=== PATIENT | female | born 1965 | race Caucasian/White ===

== ENCOUNTER 2018-10-03 17:16 | Inpatient (IN) | payer MEDICAID ==
[~2018-10-03] VITALS: Ht 162.6 cm; Wt 65.7 kg
[~2018-10-03 17:16] MED LIST: NAPR-688 PO; RANI150T5 PO
[2018-10-03 17:20] VITALS: Ht 162.6 cm; Wt 65.7 kg
--- NOTE | 2018-10-03 17:52 | ERD ---
ER Documentation Chief Complaint Chief Complaint JAW STIFFNESS; HEADACHE;MUSCLE STIFFNESS HPI The patient is a 53-year-old female, presenting to the ER because of inability to open her mouth, jaw lock for a day and a half. She stepped on a leela nail in the back ER about 2 weeks ago on the plantar aspect of the left great toe. She removed the nail but did not seek medical attention. She complains of bilateral lower extremity stiffness, painful joints, painful movement of her extremities, abdominal stiffness and spasm and contraction and dysphagia last week. He symptoms are getting worse. She does not smoke nor drink, her last tetanus vaccination was about 25 years ago past medical history: Kidney stone, gastritis, migraine past surgical history: Nasal surgery ROS All systems reviewed and are negative except as per history of present illness. Medications Home Meds Reported Medications Calcium Carb/Mag/Vitamin D3 (Coral Calcium 1,500 mg Cap) 1 Each Capsule, 1 EACH PO DAILY, CAP 10/03/18 Discontinued Reported Medications Cholecalciferol* (Vitamin D3*) 1,000 Unit Tablet, 1000 UNIT PO DAILY, TAB 10/03/18 Turmeric Root Extract (Turmeric) 500 Mg Capsule, 500 MG PO, CAP 10/03/18 Naproxen* (Naproxen*) 500 Mg Tablet, 500 MG PO BID PRN for HEADACHE, TAB 03/31/14 Ranitidine Hcl* (Ranitidine Hcl*) 150 Mg Tablet, 150 MG PO DAILY, TAB 03/31/14 Allergies Allergies: Coded Allergies: Penicillins (Unverified Allergy, Severe, RASH, 10/08/18) Uncoded Allergies: DYE (Allergy, Severe, STOP BREATHING, 09/04/10) PMhx/Soc History of Surgery: No Anesthesia Reaction: No Hx Neurological Disorder: No Hx Respiratory Disorders: No Hx Cardiac Disorders: No Hx Psychiatric Problems: No Hx Miscellaneous Medical Probl: Yes (KIDNEY STONES ,GASTRITIS , MIGRAINE ) Hx Alcohol Use: No Hx Substance Use: No Hx Tobacco Use: No Physical Exam Vitals Physical Exam Const: No acute distress. Head: Atraumatic. Eyes: Normal Conjunctiva. ENT: Normal External Ears, Nose and Mouth.Trismus Neck: Full range of motion. No meningismus. Resp: Clear to auscultation bilaterally. Cardio: Regular rate and rhythm. Abd: Soft, non distended, normal bowel sounds, vague and diffuse abdominal tenderness, no rigidity/rebound/CVA tenderness Skin: No petechiae or rashes. Back: No midline or flank tenderness. Ext: No cyanosis, or edema. No puncture wound at the plantar aspect of the left great toe Neur: Awake and alert. No focal deficit Psych: Normal Mood and Affect. Result Diagram: 10/05/18 0453 10/09/18 0547 Results 24 hrs Laboratory Tests Test 10/03/18 18:29 10/03/18 18:32 10/03/18 18:35 10/03/18 19:00 POC Venous Lactate 0.7 mmol/L Urine Color COLORLESS Urine Clarity CLEAR Urine pH 7.0 Urine Specific 1.006 [place] Urine Ketones NEGATIVE mg/dL Urine Nitrite NEGATIVE mg/dL Urine Bilirubin NEGATIVE mg/dL Urine Urobilinogen NEGATIVE mg/dL Urine Leukocyte NEGATIVE Rocio/ul Esterase Urine Microscopic 1 /HPF RBC Urine Microscopic 1 /HPF WBC Urine Hemoglobin 1+ mg/dL Urine Glucose NEGATIVE mg/dL Urine Total NEGATIVE mg/dl Protein White Blood Count 5.7 10^3/ul Red Blood Count 3.97 10^6/ul Hemoglobin 13.6 g/dl Hematocrit 39.6 % Mean Corpuscular 99.7 fl Volume Mean Corpuscular 34.3 pg Hemoglobin Mean Corpuscular 34.3 g/dl Hemoglobin Concent Red Cell 11.7 % Distribution Width Platelet Count 224 10^3/UL Mean Platelet 10.2 fl Volume Immature 0.400 % Granulocytes % Neutrophils % 57.6 % Lymphocytes % 28.5 % Monocytes % 7.7 % Eosinophils % 3.7 % Basophils % 2.1 % Nucleated Red 0.0 /100WBC Blood Cells % Immature 0.020 10^3/ul Granulocytes # Neutrophils # 3.3 10^3/ul Lymphocytes # 1.6 10^3/ul Monocytes # 0.4 10^3/ul Eosinophils # 0.2 10^3/ul Basophils # 0.1 10^3/ul Nucleated Red 0.0 10^3/ul Blood Cells # Prothrombin Time 12.9 Sec Prothrombin Time 1.0 Ratio INR International 0.96 Normalized Ratio Activated 25.[address] Time Sodium Level 140 mmol/L Potassium Level 4.2 mmol/L Chloride Level 107 mmol/L Carbon Dioxide 24 mmol/L Level Anion Gap 9 Blood Urea 15 mg/dl Nitrogen Creatinine 0.81 mg/dl Est Glomerular > 60 mL/min Filtrat Rate mL/min Glucose Level 93 mg/dl Calcium Level 9.8 mg/dl Magnesium Level 2.0 mg/dl Total Bilirubin 0.5 mg/dl Direct Bilirubin 0.00 mg/dl Indirect Bilirubin 0.5 mg/dl Aspartate Amino 33 IU/L Transf (AST/SGOT) Alanine 27 IU/L Aminotransferase ( ALT/SGPT) Alkaline 86 IU/L Phosphatase Troponin I < 0.012 ng/ml Total Protein 7.5 g/dl Albumin 4.3 g/dl Globulin 3.20 g/dl Albumin/Globulin 1.34 Ratio Bedside Urine pH 6.5 (LAB) Bedside Urine Negative Protein (LAB) Bedside Urine Negative Glucose (UA) Bedside Urine Negative Ketones (LAB) Bedside Urine Trace-intact Blood Bedside Urine Negative Nitrite (LAB) Bedside Urine Negative Leukocyte Esterase (L Current Medications Medications Dose Sig/Kassandra Start Time Status Last (Trade) Ordered Route PRN Stop Time Admin Dose Reason Admin Morphine 2 mg ONCE STAT 10/03/18 DC 10/03/18 Sulfate IV 18:43 10/03/18 19:01 (morphine) 18:44 Ondansetron 4 mg ONCE STAT 10/03/18 DC 10/03/18 HCl (Zofran IV 18:43 10/03/18 19:01 Inj) 18:44 Tetanus 500 units ONCE ONCE 10/03/18 DC 10/03/18 Immune IM 19:00 10/03/18 19:15 Globulin 19:01 (Hypertet S/D) Diphtheria/ 0.5 ml ONCE ONCE 10/03/18 DC 10/03/18 Tetanus/Acell IM* 19:00 10/03/18 19:16 Pertussis 19:01 (Adacel) 100 ml @ ONCE ONCE 10/03/18 DC 10/03/18 Metronidazole 100 mls/hr IVPB 19:30 10/03/18 19:16 20:29 Diazepam 2 mg ONCE ONCE 10/03/18 DC 10/03/18 (Valium) IV 20:30 10/03/18 20:38 20:31 Procedures/MDM [address] [address] Radiology Main Line: [phone] DIAGNOSTIC IMAGING REPORT Patient: DANETTE WIKLINS : 1965 Age: 53 Sex: F MR #: [id number] DOS: 10/03/18 1804 Ordering MD: HOLLAND MAGUIRE MD Location: E/R Room/Bed: PROCEDURE: XR Left foot. CLINICAL INDICATION: Left foot pain TECHNIQUE: Three views of the left foot were obtained. COMPARISON: No prior studies are available for comparison. FINDINGS: There is no acute fracture or dislocation. Alignment is normal. Joint spaces are preserved. There is a bipartite medial hallux sesamoid. There is mild forefoot soft tissue swelling. IMPRESSION: 1. No radiographic evidence of acute osseous abnormality. 2. Bipartite medial hallux sesamoid with mild adjacent soft tissue swelling. RPTAT: UU .José Monreal MD, Date Time Electronically viewed and signed by .José Monreal MD, on 10/03/2018 19:30 .K/ CC: HOLLAND MAGUIRE MD [id number] [place] [id number] Radiology Main Line: [phone] DIAGNOSTIC IMAGING REPORT Patient: DANETTE WILKINS : 1965 Age: 53 Sex: F MR #: [id number] DOS: 10/03/18 1803 Ordering MD: HOLLAND MAGUIRE MD Location: E/R Room/Bed: PROCEDURE: XR Chest. CLINICAL INDICATION: Chest pain TECHNIQUE: Single frontal view of the chest was obtained COMPARISON: None FINDINGS: The heart and mediastinum are within normal limits. The lungs are clear. There is no pleural effusion or pneumothorax. The bones and soft tissue show no acute change. IMPRESSION: No definite abnormalities are identified. RPTAT:AAJJ Physician Fernando Date Time Electronically viewed and signed by Physician Fernando on 10/03/2018 18:59 MC/ CC: HOLLAND MAGUIRE MD [id number] EKG: Read by emergency physician Rate/Rhythm: Normal Sinus Rhythm 61 beats/min QRS, ST, T-waves: No ST elevation, no T inversion Impression: Normal EKG Consultation: I discussed the patient with poison control at 6:20p, who recommended human tetanus immunoglobulin 500 units intramuscularly, tetanus vaccination Consultation:: I also discussed the patient with the on-call ENT physician Dr. Cerrato, who was made aware of the patient condition and the treatment. He accepted the consult MEDICAL MAKING DECISION: The patient is a 53-year-old female, presenting with clinical tetanus. She was treated with tetanus immunoglobulin, tetanus vaccination at different site from immunoglobulin, Flagyl IV for probable tetanus, morphine 2 mg IV for pain, Zofran 4 mg IV for nausea, Valium 2 mg IV for muscle spasm. I have consider spinal tap, but the patient does not presented with clinical meningitis with unremarkable labs and vital sign. my suspicion for meningitis is very low The differential diagnoses considered include but are not limited to tenderness, cellulitis, abscess, viral meningitis, bacterial meningitis Critical Care: Time: 35 minutes excluding all billable procedures. Treatments/Evaluations: Close monitoring and treatment of unstable vital signs, cardiorespiratory, and neurologic status, while maintaining tight balance of fluid, respiratory, and cardiac interventions. Departure Diagnosis: Primary Impression: Tetanus Condition: Critical Comments The patient's blood pressure was elevated (>120/80) but appears stable without evidence of hypertension emergency or urgency. The patient was counseled about the risks of hypertension and urged to pursue outpatient monitoring and therapy within a week with their primary care physician. I discussed the findings with the patient. I discussed the patient with Dr Wagner at 8:30p , who was made aware of the lab, the treatment, the patient condition. The patient is admitted to ICU Disclaimer: Inadvertent spelling and grammatical errors are likely due to EHR/dictation software use and do not reflect on the overall quality of patient care. Also, please note that the electronic time recorded on this note does not necessarily reflect the actual time of the patient encounter. HOLLAND MAGUIRE MD October 03, 2018 17:52
[2018-10-03] MEDS ORDERED: ONDANSETRON 4 MG INJ IV STA (18:43)
[2018-10-03] MEDS ORDERED: morphine 2 MG INJ IV STA (18:43)
[2018-10-03] MEDS ORDERED: TETANUS IMMUNE GLOB 250 UNIT SYG IM ONE (19:00)
[2018-10-03] MEDS ORDERED: DIPHTH/TET/ACEL PERTUSS (ADULT) 0.5 ML VIAL IM* ONE (19:00)
[2018-10-03] MEDS ORDERED: metroNIDAZOLE 500 MG/NS (PMX) 100 ML IVPB ONE (19:30)
[2018-10-03] MEDS ORDERED: DIAZEPAM 5 MG/ML SYG IV ONE (20:30)
[2018-10-03] MEDS ORDERED: CA C1CAP PO (21:52)
[2018-10-03] MEDS ORDERED: TURM500C9 PO (21:52)
[2018-10-03] MEDS ORDERED: CHOL100062 PO (21:52)
[2018-10-03] MEDS ORDERED: ACETAMINOPHEN 650 MG SUPP PR PRN (22:00)
[2018-10-03] MEDS ORDERED: ALBUTEROL/IPRATROPIUM (NEB) 3 ML AMP NEB PRN (22:00)
[2018-10-03 22:26] VITALS: BP 112/63; RESP 12
[2018-10-03 22:31] VITALS: PULSE 66
[2018-10-03] MEDS ORDERED: KETOROLAC 30 MG INJ IV STA (22:41)
[2018-10-03] MEDS: DEXTROSE 5%-0.45% NACL 1,000 ML IV SCH (22:52)
[2018-10-03 22:58] VITALS: PULSE 45
[2018-10-03 23:00] VITALS: BP 106/61
[2018-10-03] MEDS: PANTOPRAZOLE 40 MG INJ IV SCH (23:34)
[2018-10-03] MEDS: morphine 4 MG/ML VIAL IV PRN (23:34)
--- NOTE | 2018-10-03 23:53 | HP ---
Date/Time of Note Date/Time of Note DATE: 10/03/18 TIME: 23:53 Assessment/Plan VTE Prophylaxis Pharmacological prophylaxis: heparin Lines/Catheters IV Catheter Type (from Nrs): Peripheral IV Assessment/Plan Assessment/Plan 53-year-old female with no significant past medical history presented with generalized muscle spasm including lockjaw, most likely secondary to tetanus, as a result of stepping on rusted nail. PLAN -Patient is status post tetanus immunoglobulin -Continue ICU monitoring -Will be placed on Flagyl -Benzos for muscle relaxant -ID consult -ENT was consulted in the ER because of locked jaw. Patient however able to talk, but not able to open her mouth completely. -Monitor for any sign of respiratory distress Result Diagram: 10/03/18 1835 10/03/18 183 Results 24hrs Laboratory Tests Test 10/03/18 18:29 10/03/18 18:32 10/03/18 18:35 10/03/18 19:00 POC Venous Lactate 0.7 Urine Color COLORLESS Urine Clarity CLEAR Urine pH 7.0 Urine Specific 1.006 [place] Urine Ketones NEGATIVE Urine Nitrite NEGATIVE Urine Bilirubin NEGATIVE Urine Urobilinogen NEGATIVE Urine Leukocyte NEGATIVE Esterase Urine Microscopic RBC 1 Urine Microscopic WBC 1 Urine Hemoglobin 1+ H Urine Glucose NEGATIVE Urine Total Protein NEGATIVE White Blood Count 5.7 # Red Blood Count 3.97 L Hemoglobin 13.6 Hematocrit 39.6 Mean Corpuscular 99.7 Volume Mean Corpuscular 34.3 H Hemoglobin Mean Corpuscular 34.3 Hemoglobin Concent Red Cell Distribution 11.7 Width Platelet Count 224 Mean Platelet Volume 10.2 # Immature Granulocytes 0.400 % Neutrophils % 57.6 Lymphocytes % 28.5 Monocytes % 7.7 Eosinophils % 3.7 Basophils % 2.1 H Nucleated Red Blood 0.0 Cells % Immature Granulocytes 0.020 # Neutrophils # 3.3 Lymphocytes # 1.6 Monocytes # 0.4 Eosinophils # 0.2 Basophils # 0.1 Nucleated Red Blood 0.0 Cells # Prothrombin Time 12.9 Prothrombin Time 1.0 Ratio INR International 0.96 Normalized Ratio Activated 25.8 Partial Thromboplast Time Sodium Level 140 Potassium Level 4.2 Chloride Level 107 Carbon Dioxide Level 24 Anion Gap 9 Blood Urea Nitrogen 15 Creatinine 0.81 Est Glomerular > 60 Filtrat Rate mL/min Glucose Level 93 Calcium Level 9.8 Magnesium Level 2.0 Total Bilirubin 0.5 Direct Bilirubin 0.00 Indirect Bilirubin 0.5 Aspartate Amino 33 Transf (AST/SGOT) Alanine 27 Aminotransferase (ALT /SGPT) Alkaline Phosphatase 86 Troponin I < 0.012 Total Protein 7.5 Albumin 4.3 Globulin 3.20 Albumin/Globulin 1.34 Ratio Bedside Urine pH 6.5 (LAB) Bedside Urine Protein Negative (LAB) Bedside Urine Glucose Negative (UA) Bedside Urine Ketones Negative (LAB) Bedside Urine Blood Trace-intact H Bedside Urine Nitrite Negative (LAB) Bedside Urine Negative Leukocyte Esterase (L Test 10/03/18 22:43 Lactic Acid Level 0.9 HPI/ROS Admit Date/Time Admit Date/Time October 03, 2018 at 20:47 Hx of Present Illness This is a 53-year-old female with no significant past medical history who presented to ER complaining of muscle spasm and difficulty opening her mouth. About 2 weeks ago, she stepped on a nail while gardening, injuring her right foot(reportedly between the great toe and the second toe). Since then generalized muscle spasm has been progressively getting worse to the point where she can barely open her mouth. Interestingly, there is no sign of punctured wound on her foot. Patient reported being vascular vaccinated with tetanus 25 years ago. She denied having had tetanus booster. When presented to ER, initial vitals were stable. Heart rate, at times however has been noted to be in the 40s. According to the patient and family at the bedside, patient has been athletic. In the ER she received tetanus immunoglobulin and a dose of Flagyl. Currently she is admitted to ICU and is s till complaining of muscle spasm. She is able to talk but unable to open her mouth completely. Currently she denies any difficulty breathing. At home, she has been eating liquids. She did complain of having had a difficulty swallowing. PMH/Family/Social Past Medical History Past Surgical Hx: other (HPI) Family History Significant Family History: no pertinent family hx Social History Alcohol Use: none Smoking Status: Never smoker Drug Use: none Exam Constitutional: alert, oriented, well developed Head: normocephalic, atraumatic Eyes: EOMI, PERRL Respiratory: clear to auscultation, normal air movement Cardiovascular: regular rate and rhythm, nl pulses Gastrointestinal: soft, other (Right lower quadrant tenderness elicited on palpation. Patient also with right flank pain) Extremities: normal pulses Medications Current Medications Dextrose/Sodium Chloride 1,000 ml @ 100 mls/hr Q10H IV Last administered on 10/03/18at 22:52; Admin Dose 100 MLS/HR; Start 10/03/18 at 21:32 Ondansetron HCl (Zofran Inj) 4 mg Q6H PRN IV NAUSEA AND/OR VOMITING; Start 10/03/18 at 22:00 Albuterol/ Ipratropium (Duoneb) 3 ml Q2H RESP THERAPY PRN NEB SHORTNESS OF BREATH; Start 10/03/18 at 22:00 Acetaminophen (Tylenol Supp) 650 mg Q4H PRN [place] PAIN LEVEL 1-3 OR FEVER; Start 10/03/18 at 22:00 Morphine Sulfate (morphine) 3 mg Q4H PRN IV SEVERE PAIN LEVEL 7-10 Last administered on 10/03/18at 23:34; Admin Dose 3 MG; Start 10/03/18 at 23:00 Pantoprazole (Protonix Iv) 40 mg DAILY@06 IV Last administered on 10/03/18at 23:34; Admin Dose 40 MG; Start 10/03/18 at 23:30 Cyclobenzaprine HCl (Flexeril) 10 mg TID PRN PO MUSCLE SPASMS; Start 10/03/18 at 23:30 Coded Allergies: Penicillins (Unverified Allergy, Severe, RASH, 10/03/18) Uncoded Allergies: DYE (Allergy, Severe, STOP BREATHING, 09/04/10) Social History Smoking Status: Never smoker Exam/Review of Systems Vital Signs Vitals Vital Signs Date Temp Pulse Resp B/P (MAP) Pulse Ox O2 O2 Flow FiO2 Time Delivery Rate 10/03/18 45 22:58 10/03/18 97.9 16 103/66 99 Room Air 22:02 (78) ASHLEY CALL MD October 03, 2018 23:53
[2018-10-04] VITALS (24 sets, daily range): BP systolic 77–113; BP diastolic 40–98; PULSE 45–66; RESP 12–21
[2018-10-04] MEDS: CYCLOBENZAPRINE 10 MG TAB PO PRN ×3 (01:12→18:24)
[2018-10-04] MEDS ORDERED: LORAZEPAM 2 MG INJ IV ONE (01:30)
[2018-10-04] MEDS: morphine 4 MG/ML VIAL IV PRN ×3 (05:08→19:32)
[2018-10-04] MEDS: metroNIDAZOLE 500 MG/NS (PMX) 100 ML IVPB SCH ×4 (05:42→23:44)
[2018-10-04] MEDS: PANTOPRAZOLE 40 MG INJ IV SCH (05:42)
[2018-10-04] MEDS ORDERED: PANTOPRAZOLE 40 MG INJ IV SCH (06:00)
[2018-10-04] MEDS ORDERED: DIAZEPAM 5 MG/ML SYG IV PRN ×2 (06:00→23:00)
[2018-10-04] MEDS: DEXTROSE 5%-0.45% NACL 1,000 ML IV SCH ×2 (08:53→17:32)
--- NOTE | 2018-10-04 13:25 | CONS ---
DATE OF ADMISSION: 10/03/2018 DATE OF CONSULTATION: 10/04/2018 TYPE OF CONSULTATION: Infectious disease. REASON FOR CONSULTATION: Antibiotic management. HISTORY OF PRESENT ILLNESS: Diana Perez is a 53-year-old female who was sent in by her PC P for possible tetanus. Patient has no past medical significant history except for history of kidney stones, gastritis and migraines. She presents with generalized muscle spasm including most li kt secondary to tetanus as a result of stepping on a leela nail. The patient was given tetanus imm unoglobulin, is being monitored in the ICU. ENT has been called. On admission, white count 5.7% wit h 58% neutrophils, H and H 13.6 and 39.6, platelet count 224,000. BUN and creatinine 15/0.81, glucos e of 93. There is no significant puncture wound on her foot. The history is that [address]pped on a nail while gardening, injuring her right foot reportedly between the great toe and her sec ond toe. Since then she has had generalized muscle spasms which have been getting worse and she can barely open her mouth. PHYSICAL EXAMINATION: GENERAL: She is a well-developed, well-nourished female who is awake, responsive, in no acute distre ss. VITAL SIGNS: Stable. She is afebrile. SKIN: Without generalized rash. HEENT: Within normal limits. NECK: Supple. LYMPH NODES: None palpable. CHEST: Decreased breath sounds at the bases. HEART: Without murmur or gallop. ABDOMEN: Soft, nontender, without organosplenomegaly or masses. EXTREMITIES: Without cyanosis, clubbing, or edema. RECTAL AND GENITAL: Deferred. NEUROLOGICAL: No focal neurological abnormalities. IMAGING: Chest x-ray: No cardiopulmonary disease. A foot x-ray, she has a bipartite medial hallux sesamoid bone with some soft tissue swelling. IMPRESSION AND PLAN: The patient has received medication with regards to tetanus antitoxin. She karrie uld receive a vaccine as well; a DTaP. She is currently only on metronidazole. We will consider bro adening her antibiotic coverage, although cluster would be an anaerobe responsive to metronidaz ole. An ENT consult has been called. I will dictate my findings to the hospitalist. Dictated By: PAVAN MARION MD, JD/CLARISSA Conf#: [id number] [facility]#: [id number]
--- NOTE | 2018-10-04 13:33 | RADRPT ---
Vent Rate: 59 bpm RR Interval: 0 msec TN Interval: 164 msec QRS Duration: 88 msec QT Interval: 434 msec QTC Interval: 429 msec P-R-T [place]: 47 - 61 - 54 degrees Sinus bradycardia Otherwise normal ECG Electronically Signed By: Aldo Tucker
--- NOTE | 2018-10-04 21:25 | PN ---
Date/Time of Note Date/Time of Note DATE: 10/04/18 TIME: 21:22 Assessment/Plan VTE Prophylaxis Risk score (from Nsg)>0 risk: 1 SCD applied (from Ns): Yes SCD contraindicated: low risk/ambulating Pharmacological prophylaxis: LMWH Lines/Catheters IV Catheter Type (from Nrsg): Peripheral IV Urinary Cath still in place: No Assessment/Plan Hospital Course A/P 1. Lockjaw/ Tetanus; mod stable, cont Icu care. Daily ekg. toradol, mag sulfate, st care; +/- LP r/o other etio. 3. Ho Migraines 4. Ho nephrolithiasis 5. Ho gastritis S; jaw about the same. O: vss PE no pallor reg no mrg ctab bs+ nt nd no r r g no edema reflexes -symmetrical Result Diagram: 10/04/182 10/04/18 0452 Results 24hrs Laboratory Tests Test 10/03/18 22:43 10/04/18 04:52 Lactic Acid Level 0.9 White Blood Count 5.6 Red Blood Count 3.76 L Hemoglobin 12.6 Hematocrit 37.3 Mean Corpuscular Volume 99.2 Mean Corpuscular Hemoglobin 33.5 H Mean Corpuscular Hemoglobin Concent 33.8 Red Cell Distribution Width 11.7 Platelet Count 203 Mean Platelet Volume 10.0 Immature Granulocytes % 0.400 Neutrophils % 56.8 Lymphocytes % 29.1 Monocytes % 7.8 Eosinophils % 3.9 Basophils % 2.0 Nucleated Red Blood Cells % 0.0 Immature Granulocytes # 0.020 Neutrophils # 3.2 Lymphocytes # 1.6 Monocytes # 0.4 Eosinophils # 0.2 Basophils # 0.1 Nucleated Red Blood Cells # 0.0 Sodium Level 141 Potassium Level 4.3 Chloride Level 107 Carbon Dioxide Level 31 Anion Gap 3 L Blood Urea Nitrogen 15 Creatinine 0.84 Est Glomerular Filtrat Rate mL/min > 60 Glucose Level 85 Calcium Level 9.2 Exam/Review of Systems Exam Vitals Vital Signs Date Temp Pulse Resp B/P (MAP) Pulse Ox O2 O2 Flow FiO2 Time Delivery Rate 10/04/18 62 16 82/42 (55) 97 Room Air 21:00 10/04/18 98.2 20:00 Intake and Output 10/03/18 10/03/18 10/04/18 1515:00 23:00 07:00 IntakeIntake Total 25 ml 800 ml OutputOutput Total 250 ml BalanceBalance 25 ml 550 ml Results Results 24hrs Laboratory Tests Test 10/03/18 22:43 10/04/18 04:52 Lactic Acid Level 0.9 White Blood Count 5.6 Red Blood Count 3.76 L Hemoglobin 12.6 Hematocrit 37.3 Mean Corpuscular Volume 99.2 Mean Corpuscular Hemoglobin 33.5 H Mean Corpuscular Hemoglobin Concent 33.8 Red Cell Distribution Width 11.7 Platelet Count 203 Mean Platelet Volume 10.0 Immature Granulocytes % 0.400 Neutrophils % 56.8 Lymphocytes % 29.1 Monocytes % 7.8 Eosinophils % 3.9 Basophils % 2.0 Nucleated Red Blood Cells % 0.0 Immature Granulocytes # 0.020 Neutrophils # 3.2 Lymphocytes # 1.6 Monocytes # 0.4 Eosinophils # 0.2 Basophils # 0.1 Nucleated Red Blood Cells # 0.0 Sodium Level 141 Potassium Level 4.3 Chloride Level 107 Carbon Dioxide Level 31 Anion Gap 3 L Blood Urea Nitrogen 15 Creatinine 0.84 Est Glomerular Filtrat Rate mL/min > 60 Glucose Level 85 Calcium Level 9.2 Medications Medication Current Medications Dextrose/Sodium Chloride 1,000 ml @ 100 mls/hr Q10H IV Last administered on 10/04/18at 08:53; Admin Dose 100 MLS/HR; Start 10/03/18 at 21:32 Ondansetron HCl (Zofran Inj) 4 mg Q6H PRN IV NAUSEA AND/OR VOMITING; Start 10/03/18 at 22:00 Albuterol/ Ipratropium (Duoneb) 3 ml Q2H RESP THERAPY PRN NEB SHORTNESS OF BREATH; Start 10/03/18 at 22:00 Acetaminophen (Tylenol Supp) 650 mg Q4H PRN [place] PAIN LEVEL 1-3 OR FEVER; Start 10/03/18 at 22:00 Morphine Sulfate (morphine) 3 mg Q4H PRN IV SEVERE PAIN LEVEL 7-10 Last administered on 10/04/18at 19:32; Admin Dose 3 MG; Start 10/03/18 at 23:00 Cyclobenzaprine HCl (Flexeril) 10 mg TID PRN PO MUSCLE SPASMS Last administered on 10/04/18at 18:24; Admin Dose 10 MG; Start 10/03/18 at 23:30 Metronidazole 100 ml @ 100 mls/hr Q6 IVPB Last administered on 10/04/18at 18:24; Admin Dose 100 MLS/HR; Start 10/04/18 at 05:30 Diazepam (Valium) 2 mg Q6 PRN IV muscle spasm Last administered on 10/04/18at 14:49; Admin Dose 2 MG; Start 10/04/18 at 06:00 Magnesium Sulfate 50 ml @ 25 mls/hr ONCE ONCE IVPB ; Start 10/04/18 at 21:30; Stop 10/04/18 at 23:29 Ketorolac Tromethamine (Toradol) 30 mg Q6H PRN IV PAIN LEVEL 1-3; Start 10/04/18 at 21:30; Stop 10/07/18 at 21:29 Famotidine (Pepcid Iv) 20 mg DAILY IV ; Start 10/06/18 at 09:00; Status LONNY FITZPATRICK MD October 04, 2018 21:25
[2018-10-04] MEDS ORDERED: MAGNESIUM SULFATE 2 GM/50 ML 50 ML IVPB ONE (21:30)
[2018-10-04] MEDS ORDERED: TETANUS IMMUNE GLOB 250 UNIT SYG IM ONE (22:30)
[2018-10-04] MEDS: ONDANSETRON 4 MG INJ IV PRN (23:07)
[2018-10-05] VITALS (22 sets, daily range): BP systolic 82–119; BP diastolic 47–91; PULSE 49–78; RESP 11–19
[2018-10-05] MEDS: DEXTROSE 5%-0.45% NACL 1,000 ML IV SCH ×2 (03:10→20:34)
[2018-10-05] MEDS: KETOROLAC 30 MG INJ IV PRN ×2 (03:10→11:55)
[2018-10-05] MEDS ORDERED: MAGNESIUM SULFATE 2 GM/50 ML 50 ML IVPB ONE (05:00)
[2018-10-05] MEDS: CYCLOBENZAPRINE 10 MG TAB PO PRN (05:35)
[2018-10-05] MEDS: metroNIDAZOLE 500 MG/NS (PMX) 100 ML IVPB SCH ×4 (06:04→23:51)
--- NOTE | 2018-10-05 08:16 | PN ---
Date/Time of Note Date/Time of Note DATE: 10/05/18 TIME: 08:13 Assessment/Plan VTE Prophylaxis Risk score (from Nsg)>0 risk: 1 SCD applied (from Ns): Yes SCD contraindicated: low risk/ambulating Pharmacological prophylaxis: LMWH Lines/Catheters IV Catheter Type (from Nrsg): Peripheral IV Urinary Cath still in place: No Assessment/Plan Hospital Course A/P 1. Trismus/ Tetanus; mod stable, cont Icu care. Daily ekg. toradol, mag sulfate, st care; +/- LP to look for toxins?/ other etio. 3. Ho Migraines 4. Ho nephrolithiasis 5. Ho gastritis S; 10/04 jaw about the same. 10/05: A little better O: vss PE no pallor reg no mrg ctab bs+ nt nd no r r g no edema reflexes -symmetrical Result Diagram: 10/05/18 0453 10/04/18 0452 Results 24hrs Laboratory Tests Test 10/05/18 04:53 White Blood Count 6.7 Red Blood Count 3.50 L Hemoglobin 12.1 Hematocrit 34.6 L Mean Corpuscular Volume 98.9 Mean Corpuscular Hemoglobin 34.6 H Mean Corpuscular Hemoglobin Concent 35.0 Red Cell Distribution Width 11.8 Platelet Count 206 Mean Platelet Volume 10.2 Immature Granulocytes % 0.300 Neutrophils % 76.5 Lymphocytes % 15.3 Monocytes % 5.7 Eosinophils % 1.0 Basophils % 1.2 Nucleated Red Blood Cells % 0.0 Immature Granulocytes # 0.020 Neutrophils # 5.1 Lymphocytes # 1.0 Monocytes # 0.4 Eosinophils # 0.1 Basophils # 0.1 Nucleated Red Blood Cells # 0.0 Phosphorus Level 4.0 Magnesium Level 2.5 Exam/Review of Systems Exam Vitals Vital Signs Date Temp Pulse Resp B/P (MAP) Pulse Ox O2 O2 Flow FiO2 Time Delivery Rate 10/05/18 60 19 94/56 (69) 100 Room Air 07:01 10/05/18 98.5 04:00 Intake and Output 10/04/18 10/04/18 10/05/18 1515:00 23:00 07:00 IntakeIntake Total 100 ml 937.5 ml 740 ml OutputOutput Total 900 ml 1650 ml BalanceBalance -800 ml 937.5 ml -910 ml Results Results 24hrs Laboratory Tests Test 10/05/18 04:53 White Blood Count 6.7 Red Blood Count 3.50 L Hemoglobin 12.1 Hematocrit 34.6 L Mean Corpuscular Volume 98.9 Mean Corpuscular Hemoglobin 34.6 H Mean Corpuscular Hemoglobin Concent 35.0 Red Cell Distribution Width 11.8 Platelet Count 206 Mean Platelet Volume 10.2 Immature Granulocytes % 0.300 Neutrophils % 76.5 Lymphocytes % 15.3 Monocytes % 5.7 Eosinophils % 1.0 Basophils % 1.2 Nucleated Red Blood Cells % 0.0 Immature Granulocytes # 0.020 Neutrophils # 5.1 Lymphocytes # 1.0 Monocytes # 0.4 Eosinophils # 0.1 Basophils # 0.1 Nucleated Red Blood Cells # 0.0 Phosphorus Level 4.0 Magnesium Level 2.5 Medications Medication Current Medications Dextrose/Sodium Chloride 1,000 ml @ 100 mls/hr Q10H IV Last administered on 10/05/18 03:10; Admin Dose 100 MLS/HR; Start 10/03/18 at 21:32 Ondansetron HCl (Zofran Inj) 4 mg Q6H PRN IV NAUSEA AND/OR VOMITING Last administered on 10/04/18at 23:07; Admin Dose 4 MG; Start 10/03/18 at 22:00 Albuterol/ Ipratropium (Duoneb) 3 ml Q2H RESP THERAPY PRN NEB SHORTNESS OF BREATH; Start 10/03/18 at 22:00 Acetaminophen (Tylenol Supp) 650 mg Q4H PRN [place] PAIN LEVEL 1-3 OR FEVER; Start 10/03/18 at 22:00 Morphine Sulfate (morphine) 3 mg Q4H PRN IV SEVERE PAIN LEVEL 7-10 Last administered on 10/04/18at 19:32; Admin Dose 3 MG; Start 10/03/18 at 23:00 Cyclobenzaprine HCl (Flexeril) 10 mg TID PRN PO MUSCLE SPASMS Last administered on 10/05/18at 05:35; Admin Dose 10 MG; Start 10/03/18 at 23:30 Metronidazole 100 ml @ 100 mls/hr Q6 IVPB Last administered on 10/05/18at 06:04; Admin Dose 100 MLS/HR; Start 10/04/18 at 05:30 Ketorolac Tromethamine (Toradol) 30 mg Q6H PRN IV PAIN LEVEL 1-3 Last administered on 10/05/18at 03:10; Admin Dose 30 MG; Start 10/04/18 at 21:30; Stop 10/07/18 at 21:29 Famotidine (Pepcid Iv) 20 mg DAILY IV ; Start 10/06/18 at 09:00 Enoxaparin Sodium (Lovenox) 40 mg DAILY SC ; Start 10/06/18 at 09:00 Diazepam (Valium) 4 mg Q4H PRN IV muscle spasm; Start 10/04/18 at 23:00 LONNY PFEIFFER MD October 05, 2018 08:16
--- NOTE | 2018-10-05 09:09 | DS ---
Date/Time of Note Date/Time of Note DATE: 10/05/18 TIME: 09:01 Discharge Summary Admission/Discharge Info Admit Date/Time October 03, 2018 at 20:47 Discharge Date/Time Patient Condition: Fair Consults Dr Falcon/ Philip; Dr Souza Procedures CXR IMPRESSION: No definite abnormalities are identified. RT FOOT XR IMPRESSION: 1. No radiographic evidence of acute osseous abnormality. 2. Bipartite medial hallux sesamoid with mild adjacent soft tissue swelling. Hx of Present Illness Sent in from pcp for concern of lockjaw/ tetanus. Hospital Course Hospitalist Coverage/ Hospital Course Stepped on a leela nail ~10 days ago. No recent tetanus booster. ER/ night staff spoke w poison control: Received 500 Units Tetanus ImmunoGlobin IM once (per CDC recommendation). Needs full vaccination, may use mag sulfate, benzos. +/- anesthesia. No local wound appreciated. On flagyl. May need critical care assistance, would like to transfer to [facility]. A/P 1. Trismus/ Tetanus; mod stable, cont Icu care. Daily ekg. toradol, mag sulfate, st care; +/- LP to look for toxins?/ other etio. 3. Ho Migraines 4. Ho nephrolithiasis 5. Ho gastritis S; 10/04 jaw about the same. 10/05: A little better O: vss PE no pallor reg no mrg ctab bs+ nt nd no r r g no edema reflexes -symmetrical Home Meds Reported Medications Calcium Carb/Mag/Vitamin D3 (Coral Calcium 1,500 mg Cap) 1 Each Capsule, 1 EACH PO DAILY, CAP 10/03/18 Cholecalciferol* (Vitamin D3*) 1,000 Unit Tablet, 1000 UNIT PO DAILY, TAB 10/03/18 Turmeric Root Extract (Turmeric) 500 Mg Capsule, 500 MG PO, CAP 10/03/18 Discontinued Reported Medications Naproxen* (Naproxen*) 500 Mg Tablet, 500 MG PO BID PRN for HEADACHE, TAB 03/31/14 Ranitidine Hcl* (Ranitidine Hcl*) 150 Mg Tablet, 150 MG PO DAILY, TAB 03/31/14 Primary Care Provider Care Physician No Primary Time spent on discharge: < 30 minutes Pending Labs Laboratory Tests Test 10/05/18 04:53 White Blood Count 6.7 10^3/ul (4.8-10.8) Red Blood Count 3.50 10^6/ul (4.20-5.40) Hemoglobin 12.1 g/dl (12.0-16.0) Hematocrit 34.6 % (37.0-47.0) Mean Corpuscular Volume 98.9 fl (82.0-101.0) Mean Corpuscular Hemoglobin 34.6 pg (29.0-33.0) Mean Corpuscular Hemoglobin Concent 35.0 g/dl (32.0-37.0) Red Cell Distribution Width 11.8 % (11.5-14.5) Platelet Count 206 10^3/UL (140-415) Mean Platelet Volume 10.2 fl (7.4-10.4) Immature Granulocytes % 0.300 % (0.001-0.429) Neutrophils % 76.5 % (39.0-77.0) Lymphocytes % 15.3 % (15.0-51.0) Monocytes % 5.7 % (0.0-11.0) Eosinophils % 1.0 % (0.0-7.0) Basophils % 1.2 % (0.0-2.0) Nucleated Red Blood Cells % 0.0 /100WBC (0.0-0.0) Immature Granulocytes # 0.020 10^3/ul (0.0-0.031) Neutrophils # 5.1 10^3/ul (1.6-7.5) Lymphocytes # 1.0 10^3/ul (0.8-2.9) Monocytes # 0.4 10^3/ul (0.3-0.9) Eosinophils # 0.1 10^3/ul (0.0-0.5) Basophils # 0.1 10^3/ul (0.0-0.1) Nucleated Red Blood Cells # 0.0 10^3/ul (0.0-0.0) Phosphorus Level 4.0 mg/dl (2.5-4.9) Magnesium Level 2.5 mg/dl (1.7-2.5) LONNY PFEIFFER MD October 05, 2018 09:09
--- NOTE | 2018-10-05 12:52 | CONS ---
DATE OF ADMISSION: 10/03/2018 DATE OF CONSULTATION: TYPE OF CONSULTATION: Pulmonary. REASON FOR CONSULT: Respiratory distress. HISTORY OF PRESENT ILLNESS: This is a 53-year-old lady who presented on 10/23/2018 with trismus and mild respiratory distress with no prior history of migraines, no neurological problems. She had step ped on a leela nail 10 days prior and was diagnosed with acute tetanus infection. The patient subseq uently was transferred to intensive care unit for closer monitoring. Currently, she complains of rig ht-sided neck and back pain, but currently no respiratory distress. No visual disturbance, no urinar y incontinence, no focal deficits. PAST MEDICAL HISTORY: As above. MEDICATIONS: Per chart. ALLERGIES: NONE. SOCIAL HISTORY: Nonsmoker, no alcohol, no history of drug use. FAMILY HISTORY: Noncontributory. SYSTEMS REVIEW: A 12-point review of systems was negative other than that mentioned above. PHYSICAL EXAMINATION: GENERAL: Well-nourished, well-developed lady, appears comfortable at rest, in no acute distress. VITAL SIGNS: Currently afebrile, pulse is 60, blood pressure 89/60, O2 saturation 96% on room air. NECK: Supple. No JVD or lymphadenopathy. CARDIAC: S1, S2. No added sounds or murmurs. CHEST: Diminished air entry bilaterally. ABDOMEN: Soft, nontender. No guarding or rebound. EXTREMITIES: No cyanosis, clubbing. A 1+ edema. NEUROLOGIC: Grossly intact. No focal deficits. LABORATORY DATA: White count 6.7, hemoglobin of 12.1, platelets of 206. BUN 15, creatinine 0.84. I NR 0.96. IMPRESSION AND PLAN: 1. Presumed tetanus infection. 2. Subsequent trismus, but currently in no respiratory distress. PLAN: Continue DVT prophylaxis, benzodiazepines, antibiotics, status post IVIG and consider transfer to higher level of care. In the meantime, we will require serial vital capacity. Dictated By: CHUCKIE PATEL MD SV/CLARISAS Conf#: [id number] DID#: [id number] CC: ASHLEY CALL MD; PAVAN MARION MD; LONNY PFEIFFER MD;*EndCC*
--- NOTE | 2018-10-05 14:31 | CONS ---
Assessment/Plan Assessment/Plan Assessment/Plan (Daily) Hx of Left foot puncture wound - no open lesions appreciated Tetanus Fatigue Generalized weakness Plan Reviewed findings with patient. X-rays are negative without signs of soft tissue gas or emphysema. No fracture fragments or dislocations. Blood cultures are currently negative. No open lesions sites to obtain any wound cultures. Leukocytosis and lactic acid are negative. ESR, CRP and procalcitonin ordered along with MRI studies. No surgical plan at this time. Recommend physical therapy for strengthening activities. IV abx per ID recommendations. Consultation Date/Type/Reason Admit Date/Time October 03, 2018 at 20:47 Date/Time of Note DATE: 10/05/18 TIME: 14:24 Hx of Present Illness 53 y/o F patient with no significant medical history reports recently stepping on a leela nail while she had slippers and socks on. Patient noted gradual muscle stiffness to the lower extremity and to the jaw area. Patient states that he had reported to the another physician's office and was instructed immediately to report to the ER. Per reports patient has received tetanus immunoglobulin. Patient had also reported lethargy. Per patient she has noticed improvement since being admitted. ROS Negative except for HPI Past Medical History Medical History: no pertinent history Home Meds Reported Medications Calcium Carb/Mag/Vitamin D3 (Coral Calcium 1,500 mg Cap) 1 Each Capsule, 1 EACH PO DAILY, CAP 10/03/18 Cholecalciferol* (Vitamin D3*) 1,000 Unit Tablet, 1000 UNIT PO DAILY, TAB 10/03/18 Turmeric Root Extract (Turmeric) 500 Mg Capsule, 500 MG PO, CAP 10/03/18 Discontinued Reported Medications Naproxen* (Naproxen*) 500 Mg Tablet, 500 MG PO BID PRN for HEADACHE, TAB 03/31/14 Ranitidine Hcl* (Ranitidine Hcl*) 150 Mg Tablet, 150 MG PO DAILY, TAB 03/31/14 Medications Current Medications Dextrose/Sodium Chloride 1,000 ml @ 75 mls/hr [id number] IV Last administered on 10/05/18at 03:10; Admin Dose 100 MLS/HR; Start 10/03/18 at 21:32 Ondansetron HCl (Zofran Inj) 4 mg Q6H PRN IV NAUSEA AND/OR VOMITING Last administered on 10/04/18at 23:07; Admin Dose 4 MG; Start 10/03/18 at 22:00 Albuterol/ Ipratropium (Duoneb) 3 ml Q2H RESP THERAPY PRN NEB SHORTNESS OF BREATH; Start 10/03/18 at 22:00 Acetaminophen (Tylenol Supp) 650 mg Q4H PRN [place] PAIN LEVEL 1-3 OR FEVER; Start 10/03/18 at 22:00 Morphine Sulfate (morphine) 3 mg Q4H PRN IV SEVERE PAIN LEVEL 7-10 Last administered on 10/04/18at 19:32; Admin Dose 3 MG; Start 10/03/18 at 23:00 Cyclobenzaprine HCl (Flexeril) 10 mg TID PRN PO MUSCLE SPASMS Last administered on 10/05/18at 05:35; Admin Dose 10 MG; Start 10/03/18 at 23:30 Metronidazole 100 ml @ 100 mls/hr Q6 IVPB Last administered on 10/05/18at 11:55; Admin Dose 100 MLS/HR; Start 10/04/18 at 05:30 Ketorolac Tromethamine (Toradol) 30 mg Q6H PRN IV PAIN LEVEL 1-3 Last administered on 10/05/18at 11:55; Admin Dose 30 MG; Start 10/04/18 at 21:30; Stop 10/07/18 at 21:29 Famotidine (Pepcid Iv) 20 mg DAILY IV ; Start 10/06/18 at 09:00 Enoxaparin Sodium (Lovenox) 40 mg DAILY SC ; Start 10/06/18 at 09:00 Diazepam (Valium) 4 mg Q4H PRN IV muscle spasm; Start 10/04/18 at 23:00 Allergies: Coded Allergies: Penicillins (Unverified Allergy, Severe, RASH, 10/03/18) Uncoded Allergies: DYE (Allergy, Severe, STOP BREATHING, 09/04/10) Family History Significant Family History: diabetes, hypertension Social History Alcohol Use: none Smoking Status: Never smoker Drug Use: none Exam/Review of Systems Exam Vitals Vital Signs Date Temp Pulse Resp B/P (MAP) Pulse Ox O2 O2 Flow FiO2 Time Delivery Rate 10/05/18 70 18 119/59 100 Room Air 14:00 (79) 10/05/18 98.8 12:00 Intake and Output 10/04/18 10/04/18 10/05/18 1515:00 23:00 07:00 IntakeIntake Total 100 ml 937.5 ml 740 ml OutputOutput Total 900 ml 1650 ml BalanceBalance -800 ml 937.5 ml -910 ml Exam DP/PT and popliteal pulses palpable No pain on palpation to the posterior calf squeeze bilateral Protective sensations intact Active ROM appreciated to digits, ankles, and bilateral knees Muscle strength 4/5 in all compartments of the foot No open lesion sites appreciated No erythema or fluctuance noted No proximal streaking. Left foot X-ray IMPRESSION: 1. No radiographic evidence of acute osseous abnormality. 2. Bipartite medial hallux sesamoid with mild adjacent soft tissue swelling Results Result Diagram: 10/05/18 0453 10/04/18 0452 Results 24hrs Laboratory Tests Test 10/05/18 04:53 White Blood Count 6.7 Red Blood Count 3.50 L Hemoglobin 12.1 Hematocrit 34.6 L Mean Corpuscular Volume 98.9 Mean Corpuscular Hemoglobin 34.6 H Mean Corpuscular Hemoglobin Concent 35.0 Red Cell Distribution Width 11.8 Platelet Count 206 Mean Platelet Volume 10.2 Immature Granulocytes % 0.300 Neutrophils % 76.5 Lymphocytes % 15.3 Monocytes % 5.7 Eosinophils % 1.0 Basophils % 1.2 Nucleated Red Blood Cells % 0.0 Immature Granulocytes # 0.020 Neutrophils # 5.1 Lymphocytes # 1.0 Monocytes # 0.4 Eosinophils # 0.1 Basophils # 0.1 Nucleated Red Blood Cells # 0.0 Phosphorus Level 4.0 Magnesium Level 2.5 Medications Medication Current Medications Dextrose/Sodium Chloride 1,000 ml @ 75 mls/hr [id number] IV Last administered on 10/05/18at 03:10; Admin Dose 100 MLS/HR; Start 10/03/18 at 21:32 Ondansetron HCl (Zofran Inj) 4 mg Q6H PRN IV NAUSEA AND/OR VOMITING Last administered on 10/04/18at 23:07; Admin Dose 4 MG; Start 10/03/18 at 22:00 Albuterol/ Ipratropium (Duoneb) 3 ml Q2H RESP THERAPY PRN NEB SHORTNESS OF BREATH; Start 10/03/18 at 22:00 Acetaminophen (Tylenol Supp) 650 mg Q4H PRN [place] PAIN LEVEL 1-3 OR FEVER; Start 10/03/18 at 22:00 Morphine Sulfate (morphine) 3 mg Q4H PRN IV SEVERE PAIN LEVEL 7-10 Last administered on 10/04/18 19:32; Admin Dose 3 MG; Start 10/03/18 at 23:00 Cyclobenzaprine HCl (Flexeril) 10 mg TID PRN PO MUSCLE SPASMS Last administered on 10/05/18 05:35; Admin Dose 10 MG; Start 10/03/18 at 23:30 Metronidazole 100 ml @ 100 mls/hr Q6 IVPB Last administered on 10/05/18 11:55; Admin Dose 100 MLS/HR; Start 10/04/18 at 05:30 Ketorolac Tromethamine (Toradol) 30 mg Q6H PRN IV PAIN LEVEL 1-3 Last a dministered on 10/05/18at 11:55; Admin Dose 30 MG; Start 10/04/18 at 21:30; Stop 10/07/18 at 21:29 Famotidine (Pepcid Iv) 20 mg DAILY IV ; Start 10/06/18 at 09:00 Enoxaparin Sodium (Lovenox) 40 mg DAILY SC ; Start 10/06/18 at 09:00 Diazepam (Valium) 4 mg Q4H PRN IV muscle spasm; Start 10/04/18 at 23:00 AXEL VICKERS DPM October 05, 2018 14:30
--- NOTE | 2018-10-05 15:51 | CONS ---
Assessment/Plan Assessment/Plan Hospital Course (Demo Recall) No acute events overnight patient is alert complaining of muscle spasms, no fevers overnight. She also says that her neck is hurting. No nausea vomiting diarrhea her jaw is still low but she is able to open her mouth a little bit and tolerates thick diet WBC 6.7 no shift no bands BUN 15 creatinine 0.84 All cultures negative Antimicrobials: Patient is on IV Flagyl Physical examination: Well-nourished well-developed middle-aged woman who is alert in no distress. Head atraumatic normocephalic sclera nonicteric. Neck is supple, trachea midline, no nuchal rigidity. Chest rise symmetrical breath sounds clear bilaterally. Heart: S1-S2. Abdomen soft bowel sounds present. Extremities without cyanosis edema. Neurological: Bilateral upper and lower extremities with equal strength, no focal neurologic deficits. Assessment: 1. Presumed tetanus infection, status post tetanus antitoxin. Plan: Patient remains stable, she is being followed by Poison Control Center, she is on appropriate regimen, possible transfer to tertiary care facility. Discussed with family at bedside Consultation Date/Type/Reason Admit Date/Time October 03, 2018 at 20:47 Initial Consult Date Type of Consult id Date/Time of Note DATE: 10/05/18 TIME: 15:50 Exam/Review of Systems Exam Vitals Vital Signs Date Temp Pulse Resp B/P (MAP) Pulse Ox O2 O2 Flow FiO2 Time Delivery Rate 10/05/18 70 18 119/59 100 Room Air 14:00 (79) 10/05/18 98.8 12:00 Intake and Output 10/04/18 10/04/18 10/05/18 1515:00 23:00 07:00 IntakeIntake Total 100 ml 937.5 ml 740 ml OutputOutput Total 900 ml 1650 ml BalanceBalance -800 ml 937.5 ml -910 ml Results Result Diagram: 10/05/18 0453 10/04/18 0452 Results 24hrs Laboratory Tests Test 10/05/18 04:53 White Blood Count 6.7 Red Blood Count 3.50 L Hemoglobin 12.1 Hematocrit 34.6 L Mean Corpuscular Volume 98.9 Mean Corpuscular Hemoglobin 34.6 H Mean Corpuscular Hemoglobin Concent 35.0 Red Cell Distribution Width 11.8 Platelet Count 206 Mean Platelet Volume 10.2 Immature Granulocytes % 0.300 Neutrophils % 76.5 Lymphocytes % 15.3 Monocytes % 5.7 Eosinophils % 1.0 Basophils % 1.2 Nucleated Red Blood Cells % 0.0 Immature Granulocytes # 0.020 Neutrophils # 5.1 Lymphocytes # 1.0 Monocytes # 0.4 Eosinophils # 0.1 Basophils # 0.1 Nucleated Red Blood Cells # 0.0 Phosphorus Level 4.0 Magnesium Level 2.5 Medications Medication Current Medications Dextrose/Sodium Chloride 1,000 ml @ 75 mls/hr [id number] IV Last administered on 10/05/18 03:10; Admin Dose 100 MLS/HR; Start 10/03/18 at 21:32 Ondansetron HCl (Zofran Inj) 4 mg Q6H PRN IV NAUSEA AND/OR VOMITING Last administered on 10/04/18 23:07; Admin Dose 4 MG; Start 10/03/18 at 22:00 Albuterol/ Ipratropium (Duoneb) 3 ml Q2H RESP THERAPY PRN NEB SHORTNESS OF BREATH; Start 10/03/18 at 22:00 Acetaminophen (Tylenol Supp) 650 mg Q4H PRN [place] PAIN LEVEL 1-3 OR FEVER; Start 10/03/18 at 22:00 Morphine Sulfate (morphine) 3 mg Q4H PRN IV SEVERE PAIN LEVEL 7-10 Last administered on 10/04/18 19:32; Admin Dose 3 MG; Start 10/03/18 at 23:00 Cyclobenzaprine HCl (Flexeril) 10 mg TID PRN PO MUSCLE SPASMS Last administered on 10/05/18 05:35; Admin Dose 10 MG; Start 10/03/18 at 23:30 Metronidazole 100 ml @ 100 mls/hr Q6 IVPB Last administered on 10/05/18 11:55; Admin Dose 100 MLS/HR; Start 10/04/18 at 05:30 Ketorolac Tromethamine (Toradol) 30 mg Q6H PRN IV PAIN LEVEL 1-3 Last administered on 10/05/18 11:55; Admin Dose 30 MG; Start 10/04/18 at 21:30; Stop 10/07/18 at 21:29 Famotidine (Pepcid Iv) 20 mg DAILY IV ; Start 10/06/18 at 09:00 Enoxaparin Sodium (Lovenox) 40 mg DAILY SC ; Start 10/06/18 at 09:00 Diazepam (Valium) 4 mg Q4H PRN IV muscle spasm; Start 10/04/18 at 23:00 Magnesium Sulfate 50 ml @ 25 mls/hr TID IVPB ; Start 10/05/18 at 21:00; Status UNV Diazepam (Valium) 1 mg TID PO ; Start 10/05/18 at 16:30 ANA VEGA NP October 05, 2018 15:51
--- NOTE | 2018-10-05 16:08 | CONS ---
Assessment/Plan Assessment/Plan Hospital Course 53 yo F with hx of migraines who is admitted to [facility] ICU for management of presumed tetanus. Neurology is consulted for management of generalized muscle spasms. The clinical picture is inconsistent w/ meningitis.. P: Increase Valium to 5mg q4h for now Other medical management and supportive care per IM/ID Will follow clinically Consultation Date/Type/Reason Admit Date/Time October 03, 2018 at 20:47 Type of Consult Neurology Reason for Consultation management of generalized spasms Requesting Provider: LONNY PFEIFFER MD Date/Time of Note DATE: 10/05/18 TIME: 16:08 Hx of Present Illness The pt confirms the story below: She states that she has full strength but feels as though her muscles tighten and lock up when she exerts movement. She states that it is generalized. It is additionally elsewhere noted: Hx of Present Illness This is a 53-year-old female with no significant past medical history who presented to ER complaining of muscle spasm and difficulty opening her mouth. About 2 weeks ago, she stepped on a nail while gardening, injuring her right foot(reportedly between the great toe and the second toe). Since then gener alized muscle spasm has been progressively getting worse to the point where she can barely open her mouth. Interestingly, there is no sign of punctured wound on her foot. Patient reported being vascular vaccinated with tetanus 25 years ago. She denied having had tetanus booster. When presented to ER, initial vitals were stable. Heart rate, at times however has been noted to be in the 40s. According to the patient and family at the bedside, patient has been athletic. In the ER she received tetanus immunoglobulin and a dose of Flagyl. Currently she is admitted to ICU and is still complaining of muscle spasm. She is able to talk but unable to open her mouth completely. Currently she denies any difficulty breathing. At home, she has been eating liquids. She did complain of having had a difficulty swallowing. negative unless noted otherwise in HPI Exam/Review of Systems Exam Vitals Vital Signs Date Temp Pulse Resp B/P (MAP) Pulse Ox O2 O2 Flow FiO2 Time Delivery Rate 10/05/18 70 18 119/59 100 Room Air 14:00 (79) 10/05/18 98.8 12:00 Intake and Output 10/04/18 10/04/18 10/05/18 1515:00 23:00 07:00 IntakeIntake Total 100 ml 937.5 ml 740 ml OutputOutput Total 900 ml 1650 ml BalanceBalance -800 ml 937.5 ml -910 ml Exam PE: Gen Appearance: No Apparent Distress HEENT: Normocephalic Cardiovascular: Regular rate Lungs: Clear bilaterally Abdomen: Soft Extremities: Dry NE: The patient was alert and oriented.. Language was normal. Fund of knowledge was normal. Pupils were equal and reactive to light. There was no afferent pupillary defect. Visual lutz were normal. Funduscopic examination was limited. Extra-ocular movements were full. Ptosis was absent. There was no nystagmus. Facial sensation was normal. Face was symmetric with normal strength. Hearing was intact. Trismus was present. Palate movements were normal. Neck strength was normal; Neck ROM was limited. There was normal tongue bulk and speed of movement. Tone was normal. Muscle bulk was normal. I did not see fasciculations. Arms and legs were strong. Vibration sensation was normal. Temperature and pinprick sensation was normal. Rapid alternating movements were normal. There was no dysmetria. There was no intention tremor. Gait was deferred due to bedrest. Arm and leg reflexes were 2+ and symmetric. Whiteside's sign was absent. Plantar responses were flexor. Results Result Diagram: 10/05/18 0453 10/04/18 0452 Results 24hrs Laboratory Tests Test 10/05/18 04:53 White Blood Count 6.7 Red Blood Count 3.50 L Hemoglobin 12.1 Hematocrit 34.6 L Mean Corpuscular Volume 98.9 Mean Corpuscular Hemoglobin 34.6 H Mean Corpuscular Hemoglobin Concent 35.0 Red Cell Distribution Width 11.8 Platelet Count 206 Mean Platelet Volume 10.2 Immature Granulocytes % 0.300 Neutrophils % 76.5 Lymphocytes % 15.3 Monocytes % 5.7 Eosinophils % 1.0 Basophils % 1.2 Nucleated Red Blood Cells % 0.0 Immature Granulocytes # 0.020 Neutrophils # 5.1 Lymphocytes # 1.0 Monocytes # 0.4 Eosinophils # 0.1 Basophils # 0.1 Nucleated Red Blood Cells # 0.0 Phosphorus Level 4.0 Magnesium Level 2.5 Medications Medication Current Medications Dextrose/Sodium Chloride 1,000 ml @ 75 mls/hr [id number] IV Last administered on 5/9/19at 03:10; Admin Dose 100 MLS/HR; Start 10/03/18 at 21:32 Ondansetron HCl (Zofran Inj) 4 mg Q6H PRN IV NAUSEA AND/OR VOMITING Last administered on 10/04/18 23:07; Admin Dose 4 MG; Start 10/03/18 at 22:00 Albuterol/ Ipratropium (Duoneb) 3 ml Q2H RESP THERAPY PRN NEB SHORTNESS OF BREATH; Start 10/03/18 at 22:00 Acetaminophen (Tylenol Supp) 650 mg Q4H PRN [place] PAIN LEVEL 1-3 OR FEVER; Start 10/03/18 at 22:00 Morphine Sulfate (morphine) 3 mg Q4H PRN IV SEVERE PAIN LEVEL 7-10 Last administered on 10/04/18at 19:32; Admin Dose 3 MG; Start 10/03/18 at 23:00 Cyclobenzaprine HCl (Flexeril) 10 mg TID PRN PO MUSCLE SPASMS Last administered on 10/05/18 05:35; Admin Dose 10 MG; Start 10/03/18 at 23:30 Metronidazole 100 ml @ 100 mls/hr Q6 IVPB Last administered on 10/05/18 11:55; Admin Dose 100 MLS/HR; Start 10/04/18 at 05:30 Ketorolac Tromethamine (Toradol) 30 mg Q6H PRN IV PAIN LEVEL 1-3 Last administered on 10/05/18 11:55; Admin Dose 30 MG; Start 10/04/18 at 21:30; Stop 10/07/18 at 21:29 Famotidine (Pepcid Iv) 20 mg DAILY IV ; Start 10/06/18 at 09:00 Enoxaparin Sodium (Lovenox) 40 mg DAILY SC ; Start 10/06/18 at 09:00 Diazepam (Valium) 4 mg Q4H PRN IV muscle spasm; Start 10/04/18 at 23:00 Magnesium Sulfate 50 ml @ 25 mls/hr TID IVPB ; Start 10/05/18 at 21:00; Status UNV Diazepam (Valium) 1 mg TID PO ; Start 10/05/18 at 16:30 Past Medical History reviewed Home Meds Reported Medications Calcium Carb/Mag/Vitamin D3 (Coral Calcium 1,500 mg Cap) 1 Each Capsule, 1 EACH PO DAILY, CAP 10/03/18 Cholecalciferol* (Vitamin D3*) 1,000 Unit Tablet, 1000 UNIT PO DAILY, TAB 10/03/18 Turmeric Root Extract (Turmeric) 500 Mg Capsule, 500 MG PO, CAP 10/03/18 Discontinued Reported Medications Naproxen* (Naproxen*) 500 Mg Tablet, 500 MG PO BID PRN for HEADACHE, TAB 03/31/14 Ranitidine Hcl* (Ranitidine Hcl*) 150 Mg Tablet, 150 MG PO DAILY, TAB 03/31/14 Medications Current Medications Dextrose/Sodium Chloride 1,000 ml @ 75 mls/hr [id number] IV Last administered on 10/05/18at 03:10; Admin Dose 100 MLS/HR; Start 10/03/18 at 21:32 Ondansetron HCl (Zofran Inj) 4 mg Q6H PRN IV NAUSEA AND/OR VOMITING Last administered on 10/04/18at 23:07; Admin Dose 4 MG; Start 10/03/18 at 22:00 Albuterol/ Ipratropium (Duoneb) 3 ml Q2H RESP THERAPY PRN NEB SHORTNESS OF BREATH; Start 10/03/18 at 22:00 Acetaminophen (Tylenol Supp) 650 mg Q4H PRN [place] PAIN LEVEL 1-3 OR FEVER; Start 10/03/18 at 22:00 Morphine Sulfate (morphine) 3 mg Q4H PRN IV SEVERE PAIN LEVEL 7-10 Last administered on 10/04/18at 19:32; Admin Dose 3 MG; Start 10/03/18 at 23:00 Cyclobenzaprine HCl (Flexeril) 10 mg TID PRN PO MUSCLE SPASMS Last administered on 10/05/18at 05:35; Admin Dose 10 MG; Start 10/03/18 at 23:30 Metronidazole 100 ml @ 100 mls/hr Q6 IVPB Last administered on 10/05/18 11:55; Admin Dose 100 MLS/HR; Start 10/04/18 at 05:30 Ketorolac Tromethamine (Toradol) 30 mg Q6H PRN [place] PAIN LEVEL 1-3 Last administered on 10/05/18at 11:55; Admin Dose 30 MG; Start 10/04/18 at 21:30; Stop 10/07/18 at 21:29 Famotidine (Pepcid Iv) 20 mg DAILY IV ; Start 10/06/18 at 09:00 Enoxaparin Sodium (Lovenox) 40 mg DAILY SC ; Start 10/06/18 at 09:00 Diazepam (Valium) 4 mg Q4H PRN IV muscle spasm; Start 10/04/18 at 23:00 Magnesium Sulfate 50 ml @ 25 mls/hr TID IVPB ; Start 10/05/18 at 21:00; Status UNV Diazepam (Valium) 1 mg TID PO ; Start 10/05/18 at 16:30 Allergies: Coded Allergies: Penicillins (Unverified Allergy, Severe, RASH, 10/03/18) Uncoded Allergies: DYE (Allergy, Severe, STOP BREATHING, 09/04/10) Past Surgical History reviewed Social History reviewed Smoking Status: Never smoker NAWAF CASTAÑEDA NP October 05, 2018 16:08 CHASIDY ROCHA October 06, 2018 06:45
[2018-10-05] MEDS ORDERED: DIAZEPAM 2 MG TAB PO SCH ×2 (16:30→17:00)
--- NOTE | 2018-10-05 19:07 | RADRPT ---
Vent Rate: 56 bpm RR Interval: 1072 msec ME Interval: 168 msec QRS Duration: 97 msec QT Interval: 442 msec QTC Interval: 427 msec P-R-T [place]: 37 - 52 - 53 degrees Sinus rhythm...normal P axis, V-rate 50- 99 Electronically Signed By: Aldo Tucker
[2018-10-05] MEDS: DIAZEPAM 5 MG TAB PO SCH (20:30)
[2018-10-05] MEDS: MAGNESIUM SULFATE 2 GM/50 ML 50 ML IVPB SCH (20:30)
[2018-10-06] VITALS (25 sets, daily range): BP systolic 76–111; BP diastolic 42–88; PULSE 48–73; RESP 13–25
[2018-10-06] MEDS: DIAZEPAM 5 MG TAB PO SCH ×7 (01:00→23:01)
[2018-10-06] MEDS: KETOROLAC 30 MG INJ IV PRN ×2 (03:32→19:54)
[2018-10-06] MEDS: DEXTROSE 5%-0.45% NACL 1,000 ML IV SCH ×2 (04:19→17:37)
[2018-10-06] MEDS ORDERED: SOD CHLORIDE 0.9% 500 ML IV ONE (04:30)
[2018-10-06] MEDS: metroNIDAZOLE 500 MG/NS (PMX) 100 ML IVPB SCH ×3 (05:19→17:31)
[2018-10-06] MEDS: ENOXAPARIN 40 MG/0.4 ML SYG SC SCH ×2 (09:00→09:16)
[2018-10-06] MEDS: FAMOTIDINE 20 MG INJ IV SCH (09:14)
[2018-10-06] MEDS: MAGNESIUM SULFATE 2 GM/50 ML 50 ML IVPB SCH ×3 (10:19→20:25)
--- NOTE | 2018-10-06 11:06 | CONS ---
Assessment/Plan Assessment/Plan Assessment/Plan (Daily) Hx of Left foot puncture wound - no open lesions appreciated Tetanus Fatigue Generalized weakness Plan Reviewed MRI findings with patient, no signs of abscess or osteomyelitis. X- rays are negative without signs of soft tissue gas or emphysema. No fracture fragments or dislocations. Blood cultures are currently negative. No open lesions sites to obtain any wound cultures. Leukocytosis and lactic acid are negative. ESR, CRP and procalcitonin are within normal limits. No surgical plan at this time. Recommend physical therapy for strengthening activities. IV abx per ID recommendations. Consultation Date/Type/Reason Admit Date/Time October 03, 2018 at 20:47 Initial Consult Date Requesting Provider: LONNY PFEIFFER MD Date/Time of Note DATE: 10/06/18 TIME: 11:05 24 HR Interval Summary Free Text/Dictation No acute events overnight. Exam/Review of Systems Exam Vitals Vital Signs Date Temp Pulse Resp B/P (MAP) Pulse Ox O2 O2 Flow FiO2 Time Delivery Rate 10/06/18 58 20 100/54 100 Room Air 09:00 (69) 10/06/18 97.4 08:00 Intake and Output 10/05/18 10/05/18 10/06/18 1515:00 23:00 07:00 IntakeIntake Total 700 ml 425.0 ml 1225 ml OutputOutput Total 0 ml BalanceBalance 700 ml 425.0 ml 1225 ml Exam DP/PT and popliteal pulses palpable No pain on palpation to the posterior calf squeeze bilateral Protective sensations intact Active ROM appreciated to digits, ankles, and bilateral knees Muscle strength 4/5 in all compartments of the foot No open lesion sites appreciated No erythema or fluctuance noted No proximal streaking. Left foot X-ray IMPRESSION: 1. No radiographic evidence of acute osseous abnormality. 2. Bipartite medial hallux sesamoid with mild adjacent soft tissue swelling Left foot MRI IMPRESSION: 1. No evidence of osteomyelitis. 2. No soft tissue fluid collection identified. 3. Mild focal effacement of the fat in the second intermetatarsal webspace. If there is clinical concern for Leblanc's neuroma, contrast-enhanced follow-up MRI may be obtained for further evaluation. 4. Fragmented medial hallux sesamoid without edema or significant sclerosis. Left Ankle MRI IMPRESSION: No acute marrow signal changes in the osseous structures of the left ankle joint. Cystic changes along the posterolateral aspect of the talus, just inferior to the talar dome measuring 11 x 6 x 10 mm, possibly secondary to chondral changes of the posterior talocalcaneal joint or traction along the posterior talofibular ligament. No evidence of fluid collection in the overlying soft tissues. Mild pressure lesion overlying the plantar calcaneus. Results Result Diagram: 10/05/18 0453 10/06/18 0448 Results 24hrs Laboratory Tests Test 10/05/18 18:41 10/06/18 04:48 Erythrocyte Sedimentation Rate 10 C-Reactive Protein 0.8 Procalcitonin 0.03 Sodium Level 141 Potassium Level 4.1 Chloride Level 110 Carbon Dioxide Level 28 Anion Gap 3 L Blood Urea Nitrogen 8 Creatinine 0.73 Est Glomerular Filtrat Rate mL/min > 60 Glucose Level 95 Calcium Level 8.9 Phosphorus Level 3.6 Magnesium Level 2.2 Medications Medication Current Medications Dextrose/Sodium Chloride 1,000 ml @ 75 mls/hr [id number] IV Last administered on 10/05/18at 20:34; Admin Dose 75 MLS/HR; Start 10/03/18 at 21:32 Ondansetron HCl (Zofran Inj) 4 mg Q6H PRN IV NAUSEA AND/OR VOMITING Last administered on 10/04/18at 23:07; Admin Dose 4 MG; Start 10/03/18 at 22:00 Albuterol/ Ipratropium (Duoneb) 3 ml Q2H RESP THERAPY PRN NEB SHORTNESS OF BREATH; Start 10/03/18 at 22:00 Acetaminophen (Tylenol Supp) 650 mg Q4H PRN [place] PAIN LEVEL 1-3 OR FEVER; Start 10/03/18 at 22:00 Morphine Sulfate (morphine) 3 mg Q4H PRN IV SEVERE PAIN LEVEL 7-10 Last administered on 10/04/18at 19:32; Admin Dose 3 MG; Start 10/03/18 at 23:00 Cyclobenzaprine HCl (Flexeril) 10 mg TID PRN PO MUSCLE SPASMS Last administered on 10/05/18at 05:35; Admin Dose 10 MG; Start 10/03/18 at 23:30 Metronidazole 100 ml @ 100 mls/hr Q6 IVPB Last administered on 10/06/18at 05:19; Admin Dose 100 MLS/HR; Start 10/04/18 at 05:30 Ketorolac Tromethamine (Toradol) 30 mg Q6H PRN IV PAIN LEVEL 1-3 Last administered on 10/06/18at 03:32; Admin Dose 30 MG; Start 10/04/18 at 21:30; Stop 10/07/18 at 21:29 Famotidine (Pepcid Iv) 20 mg DAILY IV Last administered on 10/06/18at 09:14; Admin Dose 20 MG; Start 10/06/18 at 09:00 Enoxaparin Sodium (Lovenox) 40 mg DAILY SC ; Start 10/06/18 at 09:00 Diazepam (Valium) 4 mg Q4H PRN IV muscle spasm; Start 10/04/18 at 23:00 Magnesium Sulfate 50 ml @ 25 mls/hr TID IVPB Last administered on 10/06/18at 10:19; Admin Dose 25 MLS/HR; Start 10/05/18 at 21:00 Diazepam (Valium) 5 mg Q4 PO Last administered on 10/06/18at 09:14; Admin Dose 5 MG; Start 10/05/18 at 21:00 AXEL VICKERS DPM October 06, 2018 11:06
--- NOTE | 2018-10-06 11:55 | PN ---
Date/Time of Note Date/Time of Note DATE: 10/06/18 TIME: 11:46 Assessment/Plan VTE Prophylaxis Risk score (from Nsg)>0 risk: 1 SCD applied (from Nsg): Yes SCD contraindicated: low risk/ambulating Pharmacological prophylaxis: LMWH Lines/Catheters IV Catheter Type (from Nrsg): Peripheral IV Urinary Cath still in place: No Assessment/Plan Hospital Course Hospitalist Coverage/ Hospital Course Stepped on a leela nail ~10 days ago while she and her boyfriend were evaluating/ cleaning a new property. She was in the garden wearing socks when she felt a purchasing expeditor her foot. She removed the nail which she feels was from the integrated circuit fabricator. She cleaned it with some 'colloid silver.' No recent tetanus booster. She was good for a few days then noticed bilateral lower ext spasms and then a headache which was severe and different than her normal migraines. Her usual migraines are unilateral. She also went to her usual chiropractor. No photosensitivity, or n/v. After her injury she stopped exercising and is gained a little weight. States her hair is falling out a little. ER/ night staff spoke w poison control: Received 500 Units Tetanus ImmunoGlobin IM once (per CDC recommendation due to injection pain concerns). Needs full vaccination, may use mag sulfate, benzos. +/- anesthesia. No local wound appreciated. On flagyl. As symptoms continued we elected to give her a larger dose of tetanus immunoglobulin. Patient and daughter were updated each day. -10/06: she states she has some blurry double vision. Tolerating diet ambulating somewhat. Claudettew stable. She spoke with her family friend physician in [place] who gave her a differential of hypothyroidism and multiple sclerosis. This morning I spent half an hour speaking the patient regarding her presentation, comorbidities and her present situationprognosis options. May need critical care assistance, would like to transfer to [facility]. A/P 1. Trismus/ Tetanus; mod stable, cont Icu care. Daily ekg. toradol, mag sulfate, st care; +/- LP to look for toxins?/ other etio. 3. Ho Migraines 4. Ho nephrolithiasis 5. Ho gastritis 6. History of chiropractic manipulation 7. Diplopia? Will obtain CT/ MRI/ LP additionally. S; 10/04 jaw about the same. 10/05: A little better 10/06 stable possibly a little better. I spent half an hour discussing the status prognosis treatment options. O: vss PE no pallor no droop reg no mrg ctab bs+ nt nd no r r g no edema reflexes -symmetrical Result Diagram: 10/05/18 0453 10/06/18 0448 Results 24hrs Laboratory Tests Test 10/05/18 18:41 10/06/18 04:48 Erythrocyte Sedimentation Rate 10 C-Reactive Protein 0.8 Procalcitonin 0.03 Sodium Level 141 Potassium Level 4.1 Chloride Level 110 Carbon Dioxide Level 28 Anion Gap 3 L Blood Urea Nitrogen 8 Creatinine 0.73 Est Glomerular Filtrat Rate mL/min > 60 Glucose Level 95 Calcium Level 8.9 Phosphorus Level 3.6 Magnesium Level 2.2 Exam/Review of Systems Exam Vitals Vital Signs Date Temp Pulse Resp B/P (MAP) Pulse Ox O2 O2 Flow FiO2 Time Delivery Rate 10/06/18 58 20 100/54 100 Room Air 09:00 (69) 10/06/18 97.4 08:00 Intake and Output 10/05/18 10/05/18 10/06/18 1515:00 23:00 07:00 IntakeIntake Total 700 ml 425.0 ml 1225 ml OutputOutput Total 0 ml BalanceBalance 700 ml 425.0 ml 1225 ml Results Results 24hrs Laboratory Tests Test 10/05/18 18:41 10/06/18 04:48 Erythrocyte Sedimentation Rate 10 C-Reactive Protein 0.8 Procalcitonin 0.03 Sodium Level 141 Potassium Level 4.1 Chloride Level 110 Carbon Dioxide Level 28 Anion Gap 3 L Blood Urea Nitrogen 8 Creatinine 0.73 Est Glomerular Filtrat Rate mL/min > 60 Glucose Level 95 Calcium Level 8.9 Phosphorus Level 3.6 Magnesium Level 2.2 Medications Medication Current Medications Dextrose/Sodium Chloride 1,000 ml @ 75 mls/hr [id number] IV Last administered on 10/05/18at 20:34; Admin Dose 75 MLS/HR; Start 10/03/18 at 21:32 Ondansetron HCl (Zofran Inj) 4 mg Q6H PRN IV NAUSEA AND/OR VOMITING Last administered on 10/04/18at 23:07; Admin Dose 4 MG; Start 10/03/18 at 22:00 Albuterol/ Ipratropium (Duoneb) 3 ml Q2H RESP THERAPY PRN NEB SHORTNESS OF BREATH; Start 10/03/18 at 22:00 Acetaminophen (Tylenol Supp) 650 mg Q4H PRN [place] PAIN LEVEL 1-3 OR FEVER; Start 10/03/18 at 22:00 Morphine Sulfate (morphine) 3 mg Q4H PRN IV SEVERE PAIN LEVEL 7-10 Last administered on 10/04/18 19:32; Admin Dose 3 MG; Start 10/03/18 at 23:00 Cyclobenzaprine HCl (Flexeril) 10 mg TID PRN PO MUSCLE SPASMS Last administered on 10/05/18 05:35; Admin Dose 10 MG; Start 10/03/18 at 23:30 Metronidazole 100 ml @ 100 mls/hr Q6 IVPB Last administered on 10/06/18 05:19; Admin Dose 100 MLS/HR; Start 10/04/18 at 05:30 Ketorolac Tromethamine (Toradol) 30 mg Q6H PRN IV PAIN LEVEL 1-3 Last administered on 10/06/18 03:32; Admin Dose 30 MG; Start 10/04/18 at 21:30; Stop 10/07/18 at 21:29 Famotidine (Pepcid Iv) 20 mg DAILY IV Last administered on 10/06/18 09:14; Admin Dose 20 MG; Start 10/06/18 at 09:00 Enoxaparin Sodium (Lovenox) 40 mg DAILY SC ; Start 10/06/18 at 09:00 Diazepam (Valium) 4 mg Q4H PRN IV muscle spasm; Start 10/04/18 at 23:00 Magnesium Sulfate 50 ml @ 25 mls/hr TID IVPB Last administered on 10/06/18 10:19; Admin Dose 25 MLS/HR; Start 10/05/18 at 21:00 Diazepam (Valium) 5 mg Q4 PO Last administered on 10/06/18 09:14; Admin Dose 5 MG; Start 10/05/18 at 21:00 LONNY PFEIFFER MD October 06, 2018 11:55
--- NOTE | 2018-10-06 13:42 | PN ---
DATE: 10/06/2018 ATTENDING PHYSICIAN: Mariela Callejas MD SUBJECTIVE: Chart was reviewed. The patient continues to have some trismus, awaiting a bed at [facility]. Hemodynamically, the patient is stable. PHYSICAL EXAMINATION: VITAL SIGNS: Blood pressure 100/54, pulse 58, respirations 20, temperature 97.4. The patient is on room air saturating 100%. HEENT: Pupils are equal and reactive to light. NECK: Supple. No JVD noted, no cervical adenopathy noted. LUNGS: Fair breath sounds bilaterally. CARDIOVASCULAR: S1, S2 normal. ABDOMEN: Soft, nontender, no megaly or masses noted. EXTREMITIES: No clubbing or cyanosis noted. NEUROLOGIC: No focal deficits. LABORATORY DATA: ESR 10. IMPRESSION: 1. Presumed tetanus infection. 2. Trismus. RECOMMENDATIONS: 1. Continue current treatment. 2. Status post IVIG. 3. Awaiting bed for higher level of care. Dictated By: MARIELA CALLEJAS MD, MA/CLARISSA Conf#: [id number] DID#: [id number] CC: LONNY PFEIFFER MD; PAVAN MARION MD; ASHLEY CALL MD;*EndCC*
--- NOTE | 2018-10-06 13:55 | CONS ---
Assessment/Plan Assessment/Plan Hospital Course (Demo Recall) Alert feels the same still with some weakness and tingling in her extremities, no fevers overnight. All cultures negative Antimicrobials: Patient is on IV Flagyl Physical examination: Well-nourished well-developed middle-aged woman who is alert in no distress. Head atraumatic normocephalic sclera nonicteric. Neck is supple, trachea midline, no nuchal rigidity. Chest rise symmetrical breath sounds clear bilaterally. Heart: S1-S2. Abdomen soft bowel sounds present. Extremities without cyanosis edema. Neurological: Bilateral upper and lower extremities with equal strength, no focal neurologic deficits. Assessment: 1. Presumed tetanus infection, status post tetanus antitoxin. 2. Ongoing weakness with lower extremities tingling Plan: Clinically unchanged, stable, followed by neurology and podiatry, MRI of the foot noted, continue antibiotics plan for brain MRI today Discussed with patient Consultation Date/Type/Reason Admit Date/Time October 03, 2018 at 20:47 Initial Consult Date Type of Consult id Requesting Provider: LONNY PFEIFFER MD Date/Time of Note DATE: 10/06/18 TIME: 13:54 Exam/Review of Systems Exam Vitals Vital Signs Date Temp Pulse Resp B/P (MAP) Pulse Ox O2 O2 Flow FiO2 Time Delivery Rate 10/06/18 98.5 63 13 109/71 100 Room Air 12:00 (84) Intake and Output 10/05/18 10/05/18 10/06/18 1515:00 23:00 07:00 IntakeIntake Total 700 ml 425.0 ml 1225 ml OutputOutput Total 0 ml BalanceBalance 700 ml 425.0 ml 1225 ml Results Result Diagram: 10/05/18 0453 10/06/18 0448 Results 24hrs Laboratory Tests Test 10/05/18 18:41 10/06/18 04:48 Erythrocyte Sedimentation Rate 10 C-Reactive Protein 0.8 Procalcitonin 0.03 Sodium Level 141 Potassium Level 4.1 Chloride Level 110 Carbon Dioxide Level 28 Anion Gap 3 L Blood Urea Nitrogen 8 Creatinine 0.73 Est Glomerular Filtrat Rate mL/min > 60 Glucose Level 95 Calcium Level 8.9 Phosphorus Level 3.6 Magnesium Level 2.2 Medications Medication Current Medications Dextrose/Sodium Chloride 1,000 ml @ 75 mls/hr [id number] IV Last administered on 10/05/18 20:34; Admin Dose 75 MLS/HR; Start 10/03/18 at 21:32 Ondansetron HCl (Zofran Inj) 4 mg Q6H PRN IV NAUSEA AND/OR VOMITING Last administered on 10/04/18 23:07; Admin Dose 4 MG; Start 10/03/18 at 22:00 Albuterol/ Ipratropium (Duoneb) 3 ml Q2H RESP THERAPY PRN NEB SHORTNESS OF BREATH; Start 10/03/18 at 22:00 Acetaminophen (Tylenol Supp) 650 mg Q4H PRN [place] PAIN LEVEL 1-3 OR FEVER; Start 10/03/18 at 22:00 Morphine Sulfate (morphine) 3 mg Q4H PRN IV SEVERE PAIN LEVEL 7-10 Last administered on 10/04/18 19:32; Admin Dose 3 MG; Start 10/03/18 at 23:00 Cyclobenzaprine HCl (Flexeril) 10 mg TID PRN PO MUSCLE SPASMS Last administered on 10/05/18 05:35; Admin Dose 10 MG; Start 10/03/18 at 23:30 Metronidazole 100 ml @ 100 mls/hr Q6 IVPB Last administered on 10/06/18 13:38; Admin Dose 100 MLS/HR; Start 10/04/18 at 05:30 Ketorolac Tromethamine (Toradol) 30 mg Q6H PRN IV PAIN LEVEL 1-3 Last administered on 10/06/18 03:32; Admin Dose 30 MG; Start 10/04/18 at 21:30; Stop 10/07/18 at 21:29 Famotidine (Pepcid Iv) 20 mg DAILY IV Last administered on 10/06/18 09:14; Admin Dose 20 MG; Start 10/06/18 at 09:00 Enoxaparin Sodium (Lovenox) 40 mg DAILY SC ; Start 10/06/18 at 09:00 Diazepam (Valium) 4 mg Q4H PRN IV muscle spasm; Start 10/04/18 at 23:00 Magnesium Sulfate 50 ml @ 25 mls/hr TID IVPB Last administered on 10/06/18 13:38; Admin Dose 25 MLS/HR; Start 10/05/18 at 21:00 Diazepam (Valium) 5 mg Q4 PO Last administered on 5/10/19at 13:38; Admin Dose 5 MG; Start 10/05/18 at 21:00 ANA VEGA NP October 06, 2018 13:55
--- NOTE | 2018-10-06 16:23 | CONS ---
Assessment/Plan Assessment/Plan Hospital Course 53 yo F with hx of migraines who is admitted to [facility] ICU for management of presumed tetanus with impending respiratory failure. Neurology is consulted for management of generalized muscle spasms. P: Increase Valium to 5mg q4h Other medical management per IM/ID Will follow clinically Consultation Date/Type/Reason Admit Date/Time October 03, 2018 at 20:47 Type of Consult Neurology Reason for Consultation management of generalized spasms Requesting Provider: LONNY PFEIFFER MD Date/Time of Note DATE: 10/06/18 TIME: 16:23 Exam Vital Signs Vitals Vital Signs Date Temp Pulse Resp B/P (MAP) Pulse Ox O2 O2 Flow FiO2 Time Delivery Rate 10/06/18 63 16:00 10/06/18 16 103/63 100 Room Air 14:00 (76) 10/06/18 98.5 12:00 Intake and Output 10/05/18 10/05/18 10/06/18 1515:00 23:00 07:00 IntakeIntake Total 700 ml 425.0 ml 1225 ml OutputOutput Total 0 ml BalanceBalance 700 ml 425.0 ml 1225 ml NAWAF CASTAÑEDA NP October 06, 2018 16:23
--- NOTE | 2018-10-06 16:53 | CONS ---
Assessment/Plan Assessment/Plan Hospital Course 53 yo F with hx of migraines who is admitted to [facility] ICU for management of presumed tetanus. Neurology is consulted for management of generalized muscle spasms. The clinical picture is inconsistent w/ meningitis.. P: Increase Valium to 5mg q3h for now Other medical management and supportive care per IM/ID Will follow clinically Consultation Date/Type/Reason Admit Date/Time October 03, 2018 at 20:47 Type of Consult Neurology Reason for Consultation management of generalized spasms Requesting Provider: LONNY PFEIFFER MD Date/Time of Note DATE: 10/06/18 TIME: 16:53 24 HR Interval Summary Free Text/Dictation The pt had c/o blurred vision this am. Also states that her muscle spasms are slightly improving. Exam Vital Signs Vitals Vital Signs Date Temp Pulse Resp B/P (MAP) Pulse Ox O2 O2 Flow FiO2 Time Delivery Rate 10/06/18 63 16:00 10/06/18 16 103/63 100 Room Air 14:00 (76) 10/06/18 98.5 12:00 Intake and Output 10/05/18 10/05/18 10/06/18 1515:00 23:00 07:00 IntakeIntake Total 700 ml 425.0 ml 1225 ml OutputOutput Total 0 ml BalanceBalance 700 ml 425.0 ml 1225 ml Exam E: Gen Appearance: No Apparent Distress HEENT: Normocephalic Cardiovascular: Regular rate Lungs: Clear bilaterally Abdomen: Soft Extremities: Dry NE: The patient was alert and oriented.. Language was normal. Fund of knowledge was normal. Pupils were equal and reactive to light. There was no afferent pupillary defect. Visual lutz were normal. Funduscopic examination was limited. Extra-ocular movements were full. Ptosis was absent. There was no nystagmus. Facial sensation was normal. Face was symmetric with normal strength. Hearing was intact. Trismus was present. Palate movements were normal. Neck strength was normal; Neck ROM was limited. There was normal tongue bulk and speed of movement. Tone was normal. Muscle bulk was normal. Slight muscle spasms noted generally when muscle groups were activated. Arms and legs were strong. Vibration sensation was normal. Temperature and pinprick sensation was normal. Rapid alternating movements were normal. There was no dysmetria. There was no intention tremor. Gait was deferred due to bedrest. Arm and leg reflexes were 2+ and symmetric. Whiteside's sign was absent. Plantar responses were flexor. NAWAF CASTAÑEDA NP October 06, 2018 16:53
[2018-10-07] VITALS (25 sets, daily range): BP systolic 68–108; BP diastolic 41–70; PULSE 49–71; RESP 12–24
[2018-10-07] MEDS: metroNIDAZOLE 500 MG/NS (PMX) 100 ML IVPB SCH ×4 (00:15→18:20)
[2018-10-07] MEDS: KETOROLAC 30 MG INJ IV PRN (02:54)
[2018-10-07] MEDS: DIAZEPAM 5 MG TAB PO SCH ×7 (02:55→21:28)
--- NOTE | 2018-10-07 08:33 | DS ---
Date/Time of Note Date/Time of Note DATE: 10/07/18 TIME: 08:30 Discharge Summary Admission/Discharge Info Admit Date/Time October 03, 2018 at 20:47 Discharge Date/Time Patient Condition: Stable Consults Harley Espinosa Procedures CT Brain MRI Foot Hx of Present Illness Sent in from pcp for concern of lockjaw/ tetanus. Hospital Course Hospitalist Coverage/ Hospital Course Stepped on a leela nail ~10 days ago while she and her boyfriend were evaluating/ cleaning a new property. She was in the garden wearing socks when she felt a school business manager her foot. She removed the nail which she feels was from the bank examiner. She cleaned it with some 'colloid silver.' Took some Tumeric. No recent tetanus booster. She was good for a few days then noticed bilateral lower ext spasms and then a headache which was severe and different than her normal migraines. Her usual migraines are unilateral. She also went to her usual chiropractor. No photosensitivity, or n/v. After her injury she stopped exercising and is gained a little weight. States her hair is falling out a little. ER/ night staff spoke w poison control: Received 500 Units Tetanus ImmunoGlobin IM once (per CDC recommendation due to injection pain concerns). Needs full vaccination, may use mag sulfate, benzos. +/- anesthesia. No local wound appreciated. On flagyl. As symptoms continued we elected to give her a larger dose of tetanus immunoglobulin. Patient and daughter were updated each day. -10/06: she states she has some blurry double vision. Tolerating diet ambulating somewhat. Lockjaw stable. She spoke with her family friend physician in [place] who gave her a differential of hypothyroidism and multiple sclerosis. This morning I spent half an hour speaking the patient regarding her presentation, comorbidities and her present situationprognosis options. May need critical care assistance, would like to transfer to [facility]. A/P 1. Trismus/ Tetanus; mod stable, cont Icu care. Daily ekg. toradol, mag sulfate, st care; +/- LP to look for toxins?/ other etio. 3. Ho Migraines; CT/ MRI Brain -P 4. Ho nephrolithiasis 5. Ho gastritis 6. History of chiropractic manipulation 7. Diplopia? ordered CT/ MRI. +/- LP S; 5/8 jaw about the same. 10/05: A little better 10/06 stable possibly a little better. I spent half an hour discussing the status prognosis treatment options. 10/07: events noted O: vss PE no pallor/ droop reg no mrg ctab bs+ nt nd no r r g no edema reflexes -symmetrical Home Meds Reported Medications Calcium Carb/Mag/Vitamin D3 (Coral Calcium 1,500 mg Cap) 1 Each Capsule, 1 EACH PO DAILY, CAP 10/03/18 Cholecalciferol* (Vitamin D3*) 1,000 Unit Tablet, 1000 UNIT PO DAILY, TAB 10/03/18 Turmeric Root Extract (Turmeric) 500 Mg Capsule, 500 MG PO, CAP 10/03/18 Discontinued Reported Medications Naproxen* (Naproxen*) 500 Mg Tablet, 500 MG PO BID PRN for HEADACHE, TAB 03/31/14 Ranitidine Hcl* (Ranitidine Hcl*) 150 Mg Tablet, 150 MG PO DAILY, TAB 03/31/14 Primary Care Provider Care Physician No Primary Time spent on discharge: > 30 minutes Pending Labs Laboratory Tests Test 10/07/18 04:51 Sodium Level 141 mmol/L (135-144) Potassium Level 3.8 mmol/L (3.5-5.1) Chloride Level 109 mmol/L (97-110) Carbon Dioxide Level 27 mmol/L (21-31) Anion Gap 5 (5-13) Blood Urea Nitrogen 8 mg/dl (7-20) Creatinine 0.75 mg/dl (0.44-1.00) Est Glomerular Filtrat Rate mL/min > 60 mL/min (>60) Glucose Level 84 mg/dl (70-220) Calcium Level 8.9 mg/dl (8.4-10.2) Phosphorus Level 3.9 mg/dl (2.5-4.9) Magnesium Level 2.3 mg/dl (1.7-2.5) Serum HCG, Qualitative NEGATIVE (NEGATIVE) LONNY PFEIFFER MD October 07, 2018 08:33
[2018-10-07] MEDS: ENOXAPARIN 40 MG/0.4 ML SYG SC SCH (09:00)
--- NOTE | 2018-10-07 09:40 | CONS ---
Assessment/Plan Assessment/Plan Hospital Course 53 yo F with hx of migraines who is admitted to [facility] ICU for management of presumed tetanus. Neurology is consulted for management of generalized muscle spasms. The clinical picture is inconsistent w/ meningitis.. P: Cont Valium 5mg q3h for now Other medical management and supportive care per IM/ID Will follow clinically Consultation Date/Type/Reason Admit Date/Time October 03, 2018 at 20:47 Type of Consult Neurology Reason for Consultation management of generalized spasms Requesting Provider: LONNY PFEIFFER MD Date/Time of Note DATE: 10/07/18 TIME: 09:40 24 HR Interval Summary Free Text/Dictation Pt states that her spasms in her R leg have improved slightly. Are otherwise stable from yesterday. Exam Vital Signs Vitals Vital Signs Date Temp Pulse Resp B/P (MAP) Pulse Ox O2 O2 Flow FiO2 Time Delivery Rate 10/07/18 55 08:00 10/07/18 17 68/41 (50) 98 Room Air 05:00 10/07/18 97.9 00:00 Intake and Output 10/06/18 10/06/18 10/07/18 1515:00 23:00 07:00 IntakeIntake Total 1220 ml 620 ml 125 ml OutputOutput Total 3 ml 2 ml BalanceBalance 1217 ml 618 ml 125 ml Exam E: Gen Appearance: No Apparent Distress HEENT: Normocephalic Cardiovascular: Regular rate Lungs: Clear bilaterally Abdomen: Soft Extremities: Dry NE: The patient was alert and oriented.. Language was normal. Fund of knowledge was normal. Pupils were equal and reactive to light. There was no afferent pupillary defect. Visual lutz were normal. Funduscopic examination was limited. Extra-ocular movements were full. Ptosis was absent. There was no nystagmus. Facial sensation was normal. Face was symmetric with normal strength. Hearing was intact. Trismus was present. Palate movements were normal. Neck strength was normal; Neck ROM was limited. There was normal tongue bulk and speed of movement. Tone was normal. Muscle bulk was normal. Arms and legs were strong. Vibration sensation was normal. Temperature and pinprick sensation was normal. Rapid alternating movements were normal. There was no dysmetria. There was no intention tremor. Gait was deferred due to bedrest. Arm and leg reflexes were 2+ and symmetric. Whiteside's sign was absent. Plantar responses were flexor. NAWAF CASTAÑEDA NP October 07, 2018 09:40
[2018-10-07] MEDS: CYCLOBENZAPRINE 10 MG TAB PO PRN (09:43)
[2018-10-07] MEDS: FAMOTIDINE 20 MG INJ IV SCH (09:53)
[2018-10-07] MEDS: MAGNESIUM SULFATE 2 GM/50 ML 50 ML IVPB SCH ×3 (09:53→21:29)
--- NOTE | 2018-10-07 11:46 | CONS ---
Assessment/Plan Assessment/Plan Hospital Course (Demo Recall) ID PROGRESS NOTE CURRENT ABX: DAY # => Flagyl IV 10/05/18 0453 10/07/18 0451 24H INTERVAL SUMMARY * Awakens -- still has muscle stiffness, and ABD cramping -- s/p UTI prior to admission she reports some burning dysuria * s/p Valium, vss, no fevers, reported diplopia and improved stiff jaw DIAGNOSTIC IMAGING * 10/07/[address]: Normal non-contrast CT examination of the brain for the age without intracranial hemorrhage, cerebral infarction, or hydrocephalus. * BRAIN MRI: 1. No intracranial mass, hemorrhage, cerebral infarction, hydrocephalus, or abnormal contrast enhancement of the labyrinthine structures.2. A single 1-2 mm focus of T2 hyper-signal intensity involving the subcortical region of left temporo-occipital region is a no nspecific finding with multiple differential diagnosis including idiopathic, migraine headaches, age related microvascular change, and, unlikely, demyelination or vasculitis. * 10/07/18 MRI FOOT: 1. No evidence of osteomyelitis.2. No soft tissue fluid collection identified. 3. Mild focal effacement of the fat in the second intermetatarsal webspace. If there is clinical concern for Leblanc's neuroma, contrast-enhanced follow-up MRI may be obtained for further evaluation. 4. Fragmented medial hallux sesamoid without edema or significant sclerosis. MICRO/OTHER * 10/02/18 BCX (-) * 09/29/18 TRACH CX: RESPIRATORY CULTURE Final PHYSICAL EXAMINATION: GENERAL: VSS, NAD HEENT: AT, NC, anicteric NECK: Supple, CHEST: Equal chest rise bilaterally without dyspnea on observation HEART: Pulse RRR=NSR on tele ABDOMEN: Soft EXTREMITIES: Warm, dry SKIN: No rash, no diaphoresis ID ASSESSMENT 53 yo F admit with: 1. Presumed tetanus infection w/stiff jaw, muscle spasms, status post tetanus antitoxin. * s/p nail puncture injury of foot while gardening 2. Ongoing weakness with lower extremities tingling and muscle spasms 3. Hx of Migraine NAVAS 4. Hx of nephrolithiasis w/current microscopic hematuria 5. Hx of gastritis (-)MRSA Nares ABX ALLERGIES: PCN INVASIVES: PIV CURRENT ABX: DAY # => Flagyl IV ID RECOMMENDATIONS/PLAN: 1. Repeat UA C&S for c/o burning dysuria 2. Flagyl is the ABX choice of Tx, she is allergic to PCN, foot wound healed . Consultation Date/Type/Reason Admit Date/Time October 03, 2018 at 20:47 Initial Consult Date Requesting Provider: LONNY PFEIFFER MD Date/Time of Note DATE: 10/07/18 TIME: 11:44 Exam/Review of Systems Exam Vitals Vital Signs Date Temp Pulse Resp B/P (MAP) Pulse Ox O2 O2 Flow FiO2 Time Delivery Rate 10/07/18 55 08:00 10/07/18 17 68/41 (50) 98 Room Air 05:00 10/07/18 97.9 00:00 Intake and Output 10/06/18 10/06/18 10/07/18 1515:00 23:00 07:00 IntakeIntake Total 1220 ml 620 ml 125 ml OutputOutput Total 3 ml 2 ml BalanceBalance 1217 ml 618 ml 125 ml Results Result Diagram: 10/05/18 0453 10/07/18 0451 Results 24hrs Laboratory Tests Test 10/07/18 04:51 Sodium Level 141 Potassium Level 3.8 Chloride Level 109 Carbon Dioxide Level 27 Anion Gap 5 Blood Urea Nitrogen 8 Creatinine 0.75 Est Glomerular Filtrat Rate mL/min > 60 Glucose Level 84 Calcium Level 8.9 Phosphorus Level 3.9 Magnesium Level 2.3 Serum HCG, Qualitative NEGATIVE Medications Medication Current Medications Ondansetron HCl (Zofran Inj) 4 mg Q6H PRN IV NAUSEA AND/OR VOMITING Last administered on 10/04/18at 23:07; Admin Dose 4 MG; Start 10/03/18 at 22:00 Albuterol/ Ipratropium (Duoneb) 3 ml Q2H RESP THERAPY PRN NEB SHORTNESS OF BREATH; Start 10/03/18 at 22:00 Acetaminophen (Tylenol Supp) 650 mg Q4H PRN [place] PAIN LEVEL 1-3 OR FEVER; Start 10/03/18 at 22:00 Morphine Sulfate (morphine) 3 mg Q4H PRN IV SEVERE PAIN LEVEL 7-10 Last administered on 10/04/18at 19:32; Admin Dose 3 MG; Start 10/03/18 at 23:00 Cyclobenzaprine HCl (Flexeril) 10 mg TID PRN PO MUSCLE SPASMS Last administered on 10/07/18 09:43; Admin Dose 10 MG; Start 10/03/18 at 23:30 Metronidazole 100 ml @ 100 mls/hr Q6 IVPB Last administered on 10/07/18 05:38; Admin Dose 100 MLS/HR; Start 10/04/18 at 05:30 Ketorolac Tromethamine (Toradol) 30 mg Q6H PRN IV PAIN LEVEL 1-3 Last administered on 10/07/18 02:54; Admin Dose 30 MG; Start 10/04/18 at 21:30; Stop 10/07/18 at 21:29 Famotidine (Pepcid Iv) 20 mg DAILY IV Last administered on 10/07/18 09:53; Admin Dose 20 MG; Start 10/06/18 at 09:00 Enoxaparin Sodium (Lovenox) 40 mg DAILY SC ; Start 10/06/18 at 09:00 Diazepam (Valium) 4 mg Q4H PRN IV muscle spasm; Start 10/04/18 at 23:00 Magnesium Sulfate 50 ml @ 25 mls/hr TID IVPB Last administered on 10/07/18 09:53; Admin Dose 25 MLS/HR; Start 10/05/18 at 21:00 Diazepam (Valium) 5 mg Q3 PO Last administered on 10/07/18 09:53; Admin Dose 5 MG; Start 10/06/18 at 18:00 ANTHONY MOORE NP October 07, 2018 11:46
--- NOTE | 2018-10-07 13:51 | CONS ---
Consult Date/Type/Reason Admit Date/Time October 03, 2018 at 20:47 Initial Consult Date Type of Consultation: Pulm/CCM Requesting Provider: LONNY PFEIFFER MD Date/Time of Note DATE: 10/07/18 TIME: 13:45 Subjective No events. Doing well. Some persistent muscle spasms in the legs Objective Vitals Vital Signs Date Temp Pulse Resp B/P (MAP) Pulse Ox O2 O2 Flow FiO2 Time Delivery Rate 10/07/18 61 12:00 10/07/18 17 68/41 (50) 98 Room Air 05:00 10/07/18 97.9 00:00 Intake and Output 10/06/18 10/06/18 10/07/18 1515:00 23:00 07:00 IntakeIntake Total 1220 ml 620 ml 125 ml OutputOutput Total 3 ml 2 ml BalanceBalance 1217 ml 618 ml 125 ml Exam HEENT: Neck supple; no JVD; no LAD CVS: RRR, S1 and S2 CHEST: Clear ABD: Soft, NT, + BS EXT: No c/c/e Results/Medications Result Diagram: 10/05/18 0453 10/07/18 0451 Results 24 hrs Laboratory Tests Test 10/07/18 04:51 Sodium Level 141 Potassium Level 3.8 Chloride Level 109 Carbon Dioxide Level 27 Anion Gap 5 Blood Urea Nitrogen 8 Creatinine 0.75 Est Glomerular Filtrat Rate mL/min > 60 Glucose Level 84 Calcium Level 8.9 Phosphorus Level 3.9 Magnesium Level 2.3 Serum HCG, Qualitative NEGATIVE Home Meds Reported Medications Calcium Carb/Mag/Vitamin D3 (Coral Calcium 1,500 mg Cap) 1 Each Capsule, 1 EACH PO DAILY, CAP 10/03/18 Cholecalciferol* (Vitamin D3*) 1,000 Unit Tablet, 1000 UNIT PO DAILY, TAB 10/03/18 Turmeric Root Extract (Turmeric) 500 Mg Capsule, 500 MG PO, CAP 10/03/18 Discontinued Reported Medications Naproxen* (Naproxen*) 500 Mg Tablet, 500 MG PO BID PRN for HEADACHE, TAB 03/31/14 Ranitidine Hcl* (Ranitidine Hcl*) 150 Mg Tablet, 150 MG PO DAILY, TAB 03/31/14 Medications Current Medications Ondansetron HCl (Zofran Inj) 4 mg Q6H PRN IV NAUSEA AND/OR VOMITING Last administered on 10/04/18 23:07; Admin Dose 4 MG; Start 10/03/18 at 22:00 Albuterol/ Ipratropium (Duoneb) 3 ml Q2H RESP THERAPY PRN NEB SHORTNESS OF BREATH; Start 10/03/18 at 22:00 Acetaminophen (Tylenol Supp) 650 mg Q4H PRN [place] PAIN LEVEL 1-3 OR FEVER; Start 10/03/18 at 22:00 Morphine Sulfate (morphine) 3 mg Q4H PRN IV SEVERE PAIN LEVEL 7-10 Last administered on 10/04/18 19:32; Admin Dose 3 MG; Start 10/03/18 at 23:00 Cyclobenzaprine HCl (Flexeril) 10 mg TID PRN PO MUSCLE SPASMS Last administered on 10/07/18 09:43; Admin Dose 10 MG; Start 10/03/18 at 23:30 Metronidazole 100 ml @ 100 mls/hr Q6 IVPB Last administered on 10/07/18 13:10; Admin Dose 100 MLS/HR; Start 10/04/18 at 05:30 Ketorolac Tromethamine (Toradol) 30 mg Q6H PRN IV PAIN LEVEL 1-3 Last administered on 10/07/18 02:54; Admin Dose 30 MG; Start 10/04/18 at 21:30; Stop 10/07/18 at 21:29 Famotidine (Pepcid Iv) 20 mg DAILY IV Last administered on 10/07/18 09:53; Admin Dose 20 MG; Start 10/06/18 at 09:00 Enoxaparin Sodium (Lovenox) 40 mg DAILY SC ; Start 10/06/18 at 09:00 Diazepam (Valium) 4 mg Q4H PRN IV muscle spasm; Start 10/04/18 at 23:00 Magnesium Sulfate 50 ml @ 25 mls/hr TID IVPB Last administered on 10/07/18 13:36; Admin Dose 25 MLS/HR; Start 10/05/18 at 21:00 Diazepam (Valium) 5 mg Q3 PO Last administered on 10/07/18 13:10; Admin Dose 5 MG; Start 10/06/18 at 18:00 Assessment/Plan Assessment/Plan (Daily) IMP: 1. Tetanus Infection with associated spasms though no obvious autonomic dysfunction. 2. Trismus RECS: 1. Continue abx 2. Treatment for muscle spasms 3. Mag as needed 4. Follow daily VC 5. Observe in ICU 35 min cc time TRISTON BIRD MD October 07, 2018 13:51
--- NOTE | 2018-10-07 17:03 | PDOCDIS ---
Discharge Instructions CONDITION [id number] Patient Condition: [id number] Stable HOME CARE INSTRUCTIONS: [id number] Diet Instructions: [id number] Regular ACTIVITY: [id number] Activity Restrictions: [id number] Slowly Increase Activity Do not Drive LONNY PFEIFFER MD October 07, 2018 17:03
[2018-10-08] VITALS (23 sets, daily range): BP systolic 72–108; BP diastolic 42–71; PULSE 46–68; RESP 12–22
[2018-10-08] MEDS: metroNIDAZOLE 500 MG/NS (PMX) 100 ML IVPB SCH ×5 (00:26→23:50)
[2018-10-08] MEDS: DIAZEPAM 5 MG TAB PO SCH ×9 (00:26→23:49)
[2018-10-08] MEDS: MAGNESIUM SULFATE 2 GM/50 ML 50 ML IVPB SCH ×3 (08:56→21:43)
[2018-10-08] MEDS: FAMOTIDINE 20 MG TAB PO SCH (08:56)
[2018-10-08] MEDS: ENOXAPARIN 40 MG/0.4 ML SYG SC SCH (08:59)
--- NOTE | 2018-10-08 10:16 | CONS ---
Assessment/Plan Assessment/Plan Hospital Course 53 yo F with hx of migraines who is admitted to [facility] ICU for management of presumed tetanus. Neurology is consulted for management of generalized muscle spasms. The clinical picture is inconsistent w/ meningitis.. P: Cont Valium 5mg q3h for now Other medical management and supportive care per IM/ID Will follow clinically Consultation Date/Type/Reason Admit Date/Time October 03, 2018 at 20:47 Type of Consult Neurology Reason for Consultation management of generalized spasms Requesting Provider: LONNY PFEIFFER MD Date/Time of Note DATE: 10/08/18 TIME: 10:15 24 HR Interval Summary Free Text/Dictation Continues critical care. Pt states that she's about the same as yesterday. Does not feel ready to be discharged Exam Vital Signs Vitals Vital Signs Date Temp Pulse Resp B/P (MAP) Pulse Ox O2 O2 Flow FiO2 Time Delivery Rate 10/08/18 46 18 88/44 (59) 99 05:00 10/08/18 Room Air 04:00 10/08/18 98.3 00:00 Intake and Output 10/07/18 10/07/18 10/08/18 1515:00 23:00 07:00 IntakeIntake Total 640 ml 457.5 ml 112.5 ml OutputOutput Total 450 ml 580 ml BalanceBalance 190 ml -122.5 ml 112.5 ml Exam E: Gen Appearance: No Apparent Distress HEENT: Normocephalic Cardiovascular: Regular rate Lungs: Clear bilaterally Abdomen: Soft Extremities: Dry NE: The patient was alert and oriented.. Language was normal. Fund of knowledge was normal. Pupils were equal and reactive to light. There was no afferent pupillary defect. Visual lutz were normal. Funduscopic examination was limited. Extra-ocular movements were full. Ptosis was absent. There was no nystagmus. Facial sensation was normal. Face was symmetric with normal strength. Hearing was intact. Trismus was present. Palate movements were normal. Neck strength was normal; Neck ROM was limited. There was normal tongue bulk and speed of movement. Tone was normal. Muscle bulk was normal. Arms and legs were strong. Vibration sensation was normal. Temperature and pinprick sensation was normal. Rapid alternating movements were normal. There was no dysmetria. There was no intention tremor. Gait was deferred due to bedrest. Arm and leg reflexes were 2+ and symmetric. Whitesdie's sign was absent. Plantar responses were flexor. NAWAF CASTAÑEDA NP October 08, 2018 10:16
--- NOTE | 2018-10-08 11:46 | CONS ---
Assessment/Plan Assessment/Plan Hospital Course (Demo Recall) ID PROGRESS NOTE CURRENT ABX: DAY # => Flagyl IV 24H INTERVAL SUMMARY * OOB-> Bedside commode -- not much change from yesterday - had bradycardic event last night * Ongoing muscle stiffness, and ABD cramping * -- s/p UTI prior to admission she reports some burning dysuria == urine cx low colony mixed pathogens * s/p Valium, vss, no fevers, reported diplopia and improved stiff jaw DIAGNOSTIC IMAGING * 10/07/[address]: Normal non-contrast CT examination of the brain for the age without intracranial hemorrhage, cerebral infarction, or hydrocephalus. * BRAIN MRI: 1. No intracranial mass, hemorrhage, cerebral infarcti on, hydrocephalus, or abnormal contrast enhancement of the labyrinthine structures.2. A single 1-2 mm focus of T2 hyper-signal intensity involving the subcortical region of left temporo-occipital region is a nonspecific finding with multiple differential diagnosis including idiopathic, migraine headaches, age related microvascular change, and, unlikely, demyelination or vasculitis. * 10/07/18 MRI FOOT: 1. No evidence of osteomyelitis.2. No soft tissue fluid collection identified. 3. Mild focal effacement of the fat in the second intermetatarsal webspace. If there is clinical concern for Leblanc's neuroma, contrast-enhanced follow-up MRI may be obtained for further evaluation. 4. Fragmented medial hallux sesamoid without edema or significant sclerosis. MICRO/OTHER * 10/02/18 BCX (-) * 09/29/18 TRACH CX: RESPIRATORY CULTURE Final PHYSICAL EXAMINATION: GENERAL: VSS, NAD HEENT: AT, NC, anicteric NECK: Supple, CHEST: Equal chest rise bilaterally without dyspnea on observation HEART: Pulse RRR=NSR on tele ABDOMEN: Soft EXTREMITIES: Warm, dry SKIN: No rash, no diaphoresis ID ASSESSMENT 53 yo F admit with: 1. Presumed tetanus infection w/stiff jaw, muscle spasms, status post tetanus antitoxin. * s/p nail puncture injury of foot while gardening 2. Ongoing weakness with lower extremities tingling and muscle spasms 3. Hx of Migraine NAVAS 4. Hx of nephrolithiasis w/current microscopic hematuria 5. Hx of gastritis 6. s/p UTI now with low colony count mixed pathogens --> Rx Fosfomycin x1 10/08/18 (-)MRSA Nares ABX ALLERGIES: PCN INVASIVES: PIV CURRENT ABX: DAY # => Flagyl IV ID RECOMMENDATIONS/PLAN: 1. Rx Fosfomycin x1 10/08/18 2. Flagyl is the ABX choice of Tx, she is allergic to PCN, foot wound healed . Consultation Date/Type/Reason Admit Date/Time October 03, 2018 at 20:47 Initial Consult Date Requesting Provider: LONNY PFEIFFER MD Date/Time of Note DATE: 10/08/18 TIME: 11:42 Exam/Review of Systems Exam Vitals Vital Signs Date Temp Pulse Resp B/P (MAP) Pulse Ox O2 O2 Flow FiO2 Time Delivery Rate 10/08/18 47 08:00 10/08/18 18 88/44 (59) 99 05:00 10/08/18 Room Air 04:00 10/08/18 98.3 00:00 Intake and Output 10/07/18 10/07/18 10/08/18 1515:00 23:00 07:00 IntakeIntake Total 640 ml 457.5 ml 112.5 ml OutputOutput Total 450 ml 580 ml BalanceBalance 190 ml -122.5 ml 112.5 ml Results Result Diagram: 10/05/18 0453 10/08/18 05 Results 24hrs Laboratory Tests Test 10/07/18 16:45 10/08/18 05:19 Urine Color STRAW Urine Clarity CLEAR Urine pH 6.0 Urine Specific [place] 1.004 Urine Ketones NEGATIVE Urine Nitrite NEGATIVE Urine Bilirubin NEGATIVE Urine Urobilinogen NEGATIVE Urine Leukocyte Esterase 2+ H Urine Microscopic RBC 1 Urine Microscopic WBC 8 H Urine Squamous Epithelial Cells FEW Urine Bacteria FEW A Urine Hemoglobin 1+ H Urine Glucose NEGATIVE Urine Total Protein NEGATIVE Sodium Level 142 Potassium Level 3.9 Chloride Level 109 Carbon Dioxide Level 28 Anion Gap 5 Blood Urea Nitrogen 11 Creatinine 0.79 Est Glomerular Filtrat Rate mL/min > 60 Glucose Level 91 Calcium Level 9.2 Phosphorus Level 4.1 Magnesium Level 2.3 Thyroid Stimulating Hormone (TSH) 3.780 Free Thyroxine 1.01 Total Triiodothyronine 0.94 L Medications Medication Current Medications Ondansetron HCl (Zofran Inj) 4 mg Q6H PRN IV NAUSEA AND/OR VOMITING Last administered on 10/04/18at 23:07; Admin Dose 4 MG; Start 10/03/18 at 22:00 Albuterol/ Ipratropium (Duoneb) 3 ml Q2H RESP THERAPY PRN NEB SHORTNESS OF BREATH; Start 10/03/18 at 22:00 Acetaminophen (Tylenol Supp) 650 mg Q4H PRN [place] PAIN LEVEL 1-3 OR FEVER; Start 10/03/18 at 22:00 Morphine Sulfate (morphine) 3 mg Q4H PRN IV SEVERE PAIN LEVEL 7-10 Last administered on 10/04/18 19:32; Admin Dose 3 MG; Start 10/03/18 at 23:00 Cyclobenzaprine HCl (Flexeril) 10 mg TID PRN PO MUSCLE SPASMS Last administered on 10/07/18 09:43; Admin Dose 10 MG; Start 10/03/18 at 23:30 Metronidazole 100 ml @ 100 mls/hr Q6 IVPB Last administered on 10/08/18 06:25; Admin Dose 100 MLS/HR; Start 10/04/18 at 05:30 Enoxaparin Sodium (Lovenox) 40 mg DAILY SC ; Start 10/06/18 at 09:00 Diazepam (Valium) 4 mg Q4H PRN IV muscle spasm; Start 10/04/18 at 23:00 Magnesium Sulfate 50 ml @ 25 mls/hr TID IVPB Last administered on 10/08/18 08:56; Admin Dose 25 MLS/HR; Start 10/05/18 at 21:00 Diazepam (Valium) 5 mg Q3 PO Last administered on 10/08/18 08:56; Admin Dose 5 MG; Start 10/06/18 at 18:00 Famotidine (Pepcid) 20 mg DAILY PO Last administered on 10/08/18 08:56; Admin Dose 20 MG; Start 10/08/18 at 09:00 ANTHONY MOORE NP October 08, 2018 11:46
--- NOTE | 2018-10-08 11:58 | CONS ---
Consult Date/Type/Reason Admit Date/Time October 03, 2018 at 20:47 Initial Consult Date Type of Consultation: Pulm/CCM Requesting Provider: LONNY PFEIFFER MD Date/Time of Note DATE: 10/08/18 TIME: 11:54 Subjective Doing well. Complains of some lower extremity rigidity. Vital capacity 2.2 L. Objective Vitals Vital Signs Date Temp Pulse Resp B/P (MAP) Pulse Ox O2 O2 Flow FiO2 Time Delivery Rate 10/08/18 47 08:00 10/08/18 18 88/44 (59) 99 05:00 10/08/18 Room Air 04:00 10/08/18 98.3 00:00 Intake and Output 10/07/18 10/07/18 10/08/18 1515:00 23:00 07:00 IntakeIntake Total 640 ml 457.5 ml 112.5 ml OutputOutput Total 450 ml 580 ml BalanceBalance 190 ml -122.5 ml 112.5 ml Exam HEENT: Neck supple; no JVD; no LAD CVS: RRR, S1 and S2 CHEST: Clear ABD: Soft, NT, + BS EXT: No c/c/e Results/Medications Result Diagram: 10/05/18 0453 10/08/18 05 Results 24 hrs Laboratory Tests Test 10/07/18 16:45 10/08/18 05:19 Urine Color STRAW Urine Clarity CLEAR Urine pH 6.0 Urine Specific [place] 1.004 Urine Ketones NEGATIVE Urine Nitrite NEGATIVE Urine Bilirubin NEGATIVE Urine Urobilinogen NEGATIVE Urine Leukocyte Esterase 2+ H Urine Microscopic RBC 1 Urine Microscopic WBC 8 H Urine Squamous Epithelial Cells FEW Urine Bacteria FEW A Urine Hemoglobin 1+ H Urine Glucose NEGATIVE Urine Total Protein NEGATIVE Sodium Level 142 Potassium Level 3.9 Chloride Level 109 Carbon Dioxide Level 28 Anion Gap 5 Blood Urea Nitrogen 11 Creatinine 0.79 Est Glomerular Filtrat Rate mL/min > 60 Glucose Level 91 Calcium Level 9.2 Phosphorus Level 4.1 Magnesium Level 2.3 Thyroid Stimulating Hormone (TSH) 3.780 Free Thyroxine 1.01 Total Triiodothyronine 0.94 L Home Meds Reported Medications Calcium Carb/Mag/Vitamin D3 (Coral Calcium 1,500 mg Cap) 1 Each Capsule, 1 EACH PO DAILY, CAP 10/03/18 Discontinued Reported Medications Cholecalciferol* (Vitamin D3*) 1,000 Unit Tablet, 1000 UNIT PO DAILY, TAB 10/03/18 Turmeric Root Extract (Turmeric) 500 Mg Capsule, 500 MG PO, CAP 10/03/18 Naproxen* (Naproxen*) 500 Mg Tablet, 500 MG PO BID PRN for HEADACHE, TAB 03/31/14 Ranitidine Hcl* (Ranitidine Hcl*) 150 Mg Tablet, 150 MG PO DAILY, TAB 03/31/14 Medications Current Medications Ondansetron HCl (Zofran Inj) 4 mg Q6H PRN IV NAUSEA AND/OR VOMITING Last administered on 10/04/18 23:07; Admin Dose 4 MG; Start 10/03/18 at 22:00 Albuterol/ Ipratropium (Duoneb) 3 ml Q2H RESP THERAPY PRN NEB SHORTNESS OF BREATH; Start 10/03/18 at 22:00 Acetaminophen (Tylenol Supp) 650 mg Q4H PRN [place] PAIN LEVEL 1-3 OR FEVER; Start 10/03/18 at 22:00 Morphine Sulfate (morphine) 3 mg Q4H PRN IV SEVERE PAIN LEVEL 7-10 Last administered on 10/04/18 19:32; Admin Dose 3 MG; Start 10/03/18 at 23:00 Cyclobenzaprine HCl (Flexeril) 10 mg TID PRN PO MUSCLE SPASMS Last administered on 10/07/18 09:43; Admin Dose 10 MG; Start 10/03/18 at 23:30 Metronidazole 100 ml @ 100 mls/hr Q6 IVPB Last administered on 10/08/18 06:25; Admin Dose 100 MLS/HR; Start 10/04/18 at 05:30 Enoxaparin Sodium (Lovenox) 40 mg DAILY SC ; Start 10/06/18 at 09:00 Diazepam (Valium) 4 mg Q4H PRN IV muscle spasm; Start 10/04/18 at 23:00 Magnesium Sulfate 50 ml @ 25 mls/hr TID IVPB Last administered on 10/08/18 08:56; Admin Dose 25 MLS/HR; Start 10/05/18 at 21:00 Diazepam (Valium) 5 mg Q3 PO Last administered on 10/08/18 08:56; Admin Dose 5 MG; Start 10/06/18 at 18:00 Famotidine (Pepcid) 20 mg DAILY PO Last administered on 5/12/19at 08:56; Admin Dose 20 MG; Start 10/08/18 at 09:00 Fosfomycin Tromethamine (Monurol) 3 gm ONCE ONCE PO ; Start 10/08/18 at 12:00; Stop 10/08/18 at 12:01 Assessment/Plan Assessment/Plan (Daily) IMP: 1. Tetanus Infection with associated spasms though no obvious autonomic dysfunction. 2. Trismus RECS: 1. Continue abx 2. Treatment for muscle spasms with valium around the clock 3. Continue Mg 4. Follow daily VC 5. Observe in ICU 6. PT once spasms improve 7. DVT prophylaxis Case d/w patient and family 35 min cc time TRISTON BIRD MD October 08, 2018 11:58
[2018-10-08] MEDS ORDERED: FOSFOMYCIN 3 GM PACKET PO ONE (12:00)
--- NOTE | 2018-10-08 12:21 | PN ---
Date/Time of Note Date/Time of Note DATE: 10/08/18 TIME: 12:19 Assessment/Plan VTE Prophylaxis Risk score (from Nsg)>0 risk: 2 SCD applied (from Nsg): Yes SCD contraindicated: low risk/ambulating Pharmacological prophylaxis: LMWH Lines/Catheters IV Catheter Type (from Nrsg): Peripheral IV Urinary Cath still in place: No Assessment/Plan Hospital Course Hospitalist Coverage/ Hospital Course Stepped on a leela nail ~10 days ago while she and her boyfriend were evaluating/ cleaning a new property. She was in the garden wearing socks when she felt a print designer her foot. She removed the nail which she feels was from the on awake counselor. She cleaned it with some 'colloid silver.' Took some Tumeric. No recent tetanus booster. She was good for a few days then noticed bilateral lower ext spasms and then a headache which was severe and different than her normal migraines. Her usual migraines are unilateral. She also went to her usual chiropractor. No photosensitivity, or n/v. After her injury she stopped exercising and is gained a little weight. States her hair is falling out a little. ER/ night staff spoke w poison control: Received 500 Units Tetanus ImmunoGlobin IM once (per CDC recommendation due to injection pain concerns). Needs full vaccination, may use mag sulfate, benzos. +/- anesthesia. No local wound appreciated. On flagyl. As symptoms continued we elected to give her a larger dose of tetanus immunoglobulin. Patient and daughter were updated each day. -10/06: she states she has some blurry double vision. Tolerating diet ambulating somewhat. Linda stable. She spoke with her family friend physician in [place] who gave her a differential of hypothyroidism and multiple sclerosis. This morning I spent half an hour speaking the patient regarding her presentation, comorbidities and her present situationprognosis options. May need critical care assistance, would like to transfer to T[facility]iary [facility]. Amy May would like to take her; bed/ status tbd. A/P 1. Trismus/ Tetanus; mod stable, cont Icu care. Daily ekg. toradol, mag sulfate, st care; +/- LP to look for toxins?/ other etio. 3. Ho Migraines; CT/ MRI Brain 4. Ho nephrolithiasis 5. Ho gastritis 6. History of chiropractic manipulation 7. Diplopia? sp CT/ MRI. LP ordered S; 10/04 jaw about the same. 10/05: A little better 10/06 stable possibly a little better. I spent half an hour discussing the status prognosis treatment options. 10/07: events noted 10/08: refused, now agrees to lp. dysuria? blurry vision w turning. i asked her to consider tertiary opinion. O: vss PE no pallor/ droop reg no mrg ctab bs+ nt nd no r r g no edema reflexes -symmetrical Result Diagram: 10/05/18 0453 10/08/18 0519 Results 24hrs Laboratory Tests Test 10/07/18 16:45 10/08/18 05:19 Urine Color STRAW Urine Clarity CLEAR Urine pH 6.0 Urine Specific [place] 1.004 Urine Ketones NEGATIVE Urine Nitrite NEGATIVE Urine Bilirubin NEGATIVE Urine Urobilinogen NEGATIVE Urine Leukocyte Esterase 2+ H Urine Microscopic RBC 1 Urine Microscopic WBC 8 H Urine Squamous Epithelial Cells FEW Urine Bacteria FEW A Urine Hemoglobin 1+ H Urine Glucose NEGATIVE Urine Total Protein NEGATIVE Sodium Level 142 Potassium Level 3.9 Chloride Level 109 Carbon Dioxide Level 28 Anion Gap 5 Blood Urea Nitrogen 11 Creatinine 0.79 Est Glomerular Filtrat Rate mL/min > 60 Glucose Level 91 Calcium Level 9.2 Phosphorus Level 4.1 Magnesium Level 2.3 Thyroid Stimulating Hormone (TSH) 3.780 Free Thyroxine 1.01 Total Triiodothyronine 0.94 L Exam/Review of Systems Exam Vitals Vital Signs Date Temp Pulse Resp B/P (MAP) Pulse Ox O2 O2 Flow FiO2 Time Delivery Rate 10/08/18 47 08:00 10/08/18 18 88/44 (59) 99 05:00 10/08/18 Room Air 04:00 10/08/18 98.3 00:00 Intake and Output 10/07/18 10/07/18 10/08/18 1515:00 23:00 07:00 IntakeIntake Total 640 ml 457.5 ml 112.5 ml OutputOutput Total 450 ml 580 ml BalanceBalance 190 ml -122.5 ml 112.5 ml Results Results 24hrs Laboratory Tests Test 10/07/18 16:45 10/08/18 05:19 Urine Color STRAW Urine Clarity CLEAR Urine pH 6.0 Urine Specific [place] 1.004 Urine Ketones NEGATIVE Urine Nitrite NEGATIVE Urine Bilirubin NEGATIVE Urine Urobilinogen NEGATIVE Urine Leukocyte Esterase 2+ H Urine Microscopic RBC 1 Urine Microscopic WBC 8 H Urine Squamous Epithelial Cells FEW Urine Bacteria FEW A Urine Hemoglobin 1+ H Urine Glucose NEGATIVE Urine Total Protein NEGATIVE Sodium Level 142 Potassium Level 3.9 Chloride Level 109 Carbon Dioxide Level 28 Anion Gap 5 Blood Urea Nitrogen 11 Creatinine 0.79 Est Glomerular Filtrat Rate mL/min > 60 Glucose Level 91 Calcium Level 9.2 Phosphorus Level 4.1 Magnesium Level 2.3 Thyroid Stimulating Hormone (TSH) 3.780 Free Thyroxine 1.01 Total Triiodothyronine 0.94 L Medications Medication Current Medications Ondansetron HCl (Zofran Inj) 4 mg Q6H PRN IV NAUSEA AND/OR VOMITING Last administered on 10/04/18 23:07; Admin Dose 4 MG; Start 10/03/18 at 22:00 Albuterol/ Ipratropium (Duoneb) 3 ml Q2H RESP THERAPY PRN NEB SHORTNESS OF BREATH; Start 10/03/18 at 22:00 Acetaminophen (Tylenol Supp) 650 mg Q4H PRN [place] PAIN LEVEL 1-3 OR FEVER; Start 10/03/18 at 22:00 Morphine Sulfate (morphine) 3 mg Q4H PRN IV SEVERE PAIN LEVEL 7-10 Last administered on 10/04/18 19:32; Admin Dose 3 MG; Start 10/03/18 at 23:00 Cyclobenzaprine HCl (Flexeril) 10 mg TID PRN PO MUSCLE SPASMS Last administered on 10/07/18 09:43; Admin Dose 10 MG; Start 10/03/18 at 23:30 Metronidazole 100 ml @ 100 mls/hr Q6 IVPB Last administered on 10/08/18at 06:25; Admin Dose 100 MLS/HR; Start 10/04/18 at 05:30 Enoxaparin Sodium (Lovenox) 40 mg DAILY SC ; Start 10/06/18 at 09:00 Diazepam (Valium) 4 mg Q4H PRN IV muscle spasm; Start 10/04/18 at 23:00 Magnesium Sulfate 50 ml @ 25 mls/hr TID IVPB Last administered on 10/08/18 08:56; Admin Dose 25 MLS/HR; Start 10/05/18 at 21:00 Diazepam (Valium) 5 mg Q3 PO Last administered on 10/08/18 08:56; Admin Dose 5 MG; Start 10/06/18 at 18:00 Famotidine (Pepcid) 20 mg DAILY PO Last administered on 10/08/18at 08:56; Admin Dose 20 MG; Start 10/08/18 at 09:00 LONNY PFEIFFER MD October 08, 2018 12:21
[2018-10-08] MEDS: morphine 4 MG/ML VIAL IV PRN ×2 (12:25→18:57)
[2018-10-08] MEDS: ONDANSETRON 4 MG INJ IV PRN (14:20)
[2018-10-08] MEDS ORDERED: LIDOCAINE 1% (MPF) 5 ML VIAL ONE (14:46)
[2018-10-08] MEDS: CYCLOBENZAPRINE 10 MG TAB PO PRN (23:49)
[2018-10-09] VITALS (16 sets, daily range): BP systolic 78–98; BP diastolic 48–67; PULSE 46–131; RESP 15–21
[2018-10-09] MEDS: DIAZEPAM 5 MG TAB PO SCH ×7 (03:09→22:49)
[2018-10-09] MEDS: metroNIDAZOLE 500 MG/NS (PMX) 100 ML IVPB SCH ×3 (06:11→17:29)
[2018-10-09] MEDS: FAMOTIDINE 20 MG TAB PO SCH (08:25)
[2018-10-09] MEDS: MAGNESIUM SULFATE 2 GM/50 ML 50 ML IVPB SCH ×3 (08:26→21:02)
[2018-10-09] MEDS: ENOXAPARIN 40 MG/0.4 ML SYG SC SCH (08:31)
--- NOTE | 2018-10-09 08:51 | RADRPT ---
Vent Rate: 48 bpm RR Interval: 1248 msec [place] Interval: 171 msec QRS Duration: 89 msec QT Interval: 448 msec QTC Interval: 401 msec P-R-T [place]: 13 - 58 - 56 degrees Sinus bradycardia...rate< 50 Electronically Signed By: Aldo Tucker
[2018-10-09] MEDS ORDERED: BISACODYL (EC) 5 MG TAB PO PRN (10:00)
--- NOTE | 2018-10-09 10:04 | PN ---
Date/Time of Note Date/Time of Note DATE: 10/09/18 TIME: 10:00 Assessment/Plan VTE Prophylaxis Risk score (from Ns)>0 risk: 1 SCD applied (from Ns): No SCD contraindicated: patient refusal Pharmacological prophylaxis: LMWH Lines/Catheters IV Catheter Type (from [facility]): Peripheral IV Urinary Cath still in place: No Assessment/Plan Hospital Course SUBJECTIVE: Complains of some spasms in the left lower extremity. Complains of poor appetite. Constipated. OBJECTIVE: Physical Exam General: Adequately build 53 year-old male lying in bed in no apparent distress. HEENT: Normocephalic, atraumatic. Eyes: Anicteric sclerae, conjunctivae clear. ENT: Nasal septum midline, oral mucosa moist. Neck supple, no JVD noticed. Respiratory: Bilaterally clear breath sounds. No use of accessory muscles of respiration. No adventitious breath sounds. Cardiovascular: S1, S2 heard. Regular rate and rhythm. Abdomen: Soft, nontender, and nondistended. Bowel sounds positive in all 4 quadrants. Genitourinary: Deferred. Extremities: No cyanosis, no clubbing, no edema. Peripheral pulses palpable. Neurologic: Cranial nerves II through XII grossly intact. The patient is awake, alert, and oriented. Skin: Normal skin turgor. No skin rashes. Labs & Vitals per chart ASSESSMENT & PLAN 53-year-old female with no significant comorbidities other than remote history of migraine headache who presented to the emergency department with chief comp laint of generalized muscle spasms including trismus, who recently had a puncture wound from reported nail and was not adequately immunized for tetanus. 1. Presumed tetanus. -Status post evaluation by podiatry for reported puncture wound of the left foot and no obvious wound. -Continue Flagyl. -Status post tetanus immunoglobulin. -Continue [id number] muscle relaxants. -Being followed by neurology and pulmonology. -Status post lumbar puncture on 10/08/2018. 2. Cephalgia. -Reported different headache when compared to her migraine episodes. -Brain MRI showing 1 to 2 mm focus of T2 hyper signal intensity involve the subcortical region of left temporal occipital region. -Being followed by neurology. 3. Fluids, electrolytes, and nutrition. -Mechanical soft diet. 4. DVT prophylaxis -Subcutaneous Lovenox (patient refusing). 5. Plan. -Transfer the patient to telemetry. -Continue current management. Critical care time: 35 minutes. The patient was seen in collaboration with Dr. Murillo. Result Diagram: 10/05/18 0453 10/09/18 0547 Results 24hrs Laboratory Tests Test 10/08/18 16:51 10/09/18 05:47 CSF Tubes Submitted 4 CSF Volume 4.2 CSF Appearance SLIGHTLY HAZY CSF Color PINKISH CSF WBC 7 CSF RBC 5000 H CSF Cell Count Tube # TUBE#4 CSF Mononuclear Cells % (Auto) 57.2 CSF Polynuclear WBCs (%) 42.8 CSF Glucose 54 CSF Total Protein 56 Sodium Level 139 Potassium Level 4.1 Chloride Level 106 Carbon Dioxide Level 28 Anion Gap 5 Blood Urea Nitrogen 10 Creatinine 0.81 Est Glomerular Filtrat Rate mL/min > 60 Glucose Level 84 Calcium Level 8.8 Phosphorus Level 4.7 Magnesium Level 2.1 Exam/Review of Systems Exam Vitals Vital Signs Date Temp Pulse Resp B/P (MAP) Pulse Ox O2 O2 Flow FiO2 Time Delivery Rate 10/09/18 58 18 88/60 (69) 100 Room Air 09:00 10/09/18 97.9 08:00 Intake and Output 10/08/18 10/08/18 10/09/18 1414:59 22:59 06:59 IntakeIntake Total 715 ml 185 ml 550 ml OutputOutput Total 550 ml 900 ml 550 ml BalanceBalance 165 ml -715 ml 0 ml Results Results 24hrs Laboratory Tests Test 10/08/18 16:51 10/09/18 05:47 CSF Tubes Submitted 4 CSF Volume 4.2 CSF Appearance SLIGHTLY HAZY CSF Color PINKISH CSF WBC 7 CSF RBC 5000 H CSF Cell Count Tube # TUBE#4 CSF Mononuclear Cells % (Auto) 57.2 CSF Polynuclear WBCs (%) 42.8 CSF Glucose 54 CSF Total Protein 56 Sodium Level 139 Potassium Level 4.1 Chloride Level 106 Carbon Dioxide Level 28 Anion Gap 5 Blood Urea Nitrogen 10 Creatinine 0.81 Est Glomerular Filtrat Rate mL/min > 60 Glucose Level 84 Calcium Level 8.8 Phosphorus Level 4.7 Magnesium Level 2.1 Medications Medication Current Medications Ondansetron HCl (Zofran Inj) 4 mg Q6H PRN IV NAUSEA AND/OR VOMITING Last administered on 10/08/18at 14:20; Admin Dose 4 MG; Start 10/03/18 at 22:00 Albuterol/ Ipratropium (Duoneb) 3 ml Q2H RESP THERAPY PRN NEB SHORTNESS OF BREATH; Start 10/03/18 at 22:00 Acetaminophen (Tylenol Supp) 650 mg Q4H PRN [place] PAIN LEVEL 1-3 OR FEVER; Start 10/03/18 at 22:00 Morphine Sulfate (morphine) 3 mg Q4H PRN IV SEVERE PAIN LEVEL 7-10 Last administered on 10/08/18 18:57; Admin Dose 3 MG; Start 10/03/18 at 23:00 Cyclobenzaprine HCl (Flexeril) 10 mg TID PRN PO MUSCLE SPASMS Last administered on 10/08/18 23:49; Admin Dose 10 MG; Start 10/03/18 at 23:30 Metronidazole 100 ml @ 100 mls/hr Q6 IVPB Last administered on 10/09/18 06:11; Admin Dose 100 MLS/HR; Start 10/04/18 at 05:30 Enoxaparin Sodium (Lovenox) 40 mg DAILY SC ; Start 10/06/18 at 09:00 Diazepam (Valium) 4 mg Q4H PRN IV muscle spasm Last administered on 10/08/18 15:56; Admin Dose 4 MG; Start 10/04/18 at 23:00 Magnesium Sulfate 50 ml @ 25 mls/hr TID IVPB Last administered on 10/09/18 08:26; Admin Dose 25 MLS/HR; Start 10/05/18 at 21:00 Diazepam (Valium) 5 mg Q3 PO Last administered on 10/09/18 08:25; Admin Dose 5 MG; Start 10/06/18 at 18:00 Famotidine (Pepcid) 20 mg DAILY PO Last administered on 10/09/18 08:25; Admin Dose 20 MG; Start 10/08/18 at 09:00 WILLIAM ANDRE NP October 09, 2018 10:04
--- NOTE | 2018-10-09 10:51 | RADRPT ---
Vent Rate: 51 bpm RR Interval: 1168 msec [place] Interval: 164 msec QRS Duration: 95 msec QT Interval: 445 msec QTC Interval: 412 msec P-R-T [place]: 15 - 51 - 56 degrees Sinus rhythm...normal P axis, V-rate 50- 99 Electronically Signed By: Chino Tinajero
--- NOTE | 2018-10-09 10:51 | CONS ---
Consult Date/Type/Reason Admit Date/Time October 03, 2018 at 20:47 Initial Consult Date Type of Consult Pulmonary Requesting Provider: LONNY PFEIFFER MD Date/Time of Note DATE: 10/09/18 TIME: 10:50 Subjective Doing okay. Slowly improving. No respiratory distress. Ambulating to commode. Objective Vital Signs Date Temp Pulse Resp B/P (MAP) Pulse Ox O2 O2 Flow FiO2 Time Delivery Rate 10/09/18 58 18 88/60 (69) 100 Room Air 09:00 10/09/18 97.9 08:00 Intake and Output 10/08/18 10/08/18 10/09/18 1515:00 23:00 07:00 IntakeIntake Total 740 ml 210 ml 620 ml OutputOutput Total 550 ml 900 ml 1450 ml BalanceBalance 190 ml -690 ml -830 ml Exam GENERAL: Well-nourished well-developed lady comfortable at rest no acute distress VITAL SIGNS: per chart NECK: Supple. No JVD or lymphadenopathy. CARDIAC EXAM: S1, S2. No added sounds or murmurs. CHEST: clear bilaterally, No added sounds, rales or wheezes ABDOMEN: Soft, nontender. No guarding or rebound. EXTREMITIES: No cyanosis, clubbing or edema. NEUROLOGIC: Generalized weakness. No focal deficits. Results/Medications Result Diagram: 10/05/18 0453 10/09/18 0547 Results 24 hrs Laboratory Tests Test 10/08/18 16:51 10/09/18 05:47 CSF Tubes Submitted 4 CSF Volume 4.2 CSF Appearance SLIGHTLY HAZY CSF Color PINKISH CSF WBC 7 CSF RBC 5000 H CSF Cell Count Tube # TUBE#4 CSF Mononuclear Cells % (Auto) 57.2 CSF Polynuclear WBCs (%) 42.8 CSF Glucose 54 CSF Total Protein 56 Sodium Level 139 Potassium Level 4.1 Chloride Level 106 Carbon Dioxide Level 28 Anion Gap 5 Blood Urea Nitrogen 10 Creatinine 0.81 Est Glomerular Filtrat Rate mL/min > 60 Glucose Level 84 Calcium Level 8.8 Phosphorus Level 4.7 Magnesium Level 2.1 Medications Current Medications Ondansetron HCl (Zofran Inj) 4 mg Q6H PRN IV NAUSEA AND/OR VOMITING Last administered on 10/08/18at 14:20; Admin Dose 4 MG; Start 10/03/18 at 22:00 Albuterol/ Ipratropium (Duoneb) 3 ml Q2H RESP THERAPY PRN NEB SHORTNESS OF BREATH; Start 10/03/18 at 22:00 Acetaminophen (Tylenol Supp) 650 mg Q4H PRN [place] PAIN LEVEL 1-3 OR FEVER; Start 10/03/18 at 22:00 Morphine Sulfate (morphine) 3 mg Q4H PRN IV SEVERE PAIN LEVEL 7-10 Last admini stered on 10/08/18at 18:57; Admin Dose 3 MG; Start 10/03/18 at 23:00 Cyclobenzaprine HCl (Flexeril) 10 mg TID PRN PO MUSCLE SPASMS Last administered on 10/08/18at 23:49; Admin Dose 10 MG; Start 10/03/18 at 23:30 Metronidazole 100 ml @ 100 mls/hr Q6 IVPB Last administered on 10/09/18 06:11; Admin Dose 100 MLS/HR; Start 10/04/18 at 05:30 Enoxaparin Sodium (Lovenox) 40 mg DAILY SC ; Start 10/06/18 at 09:00 Diazepam (Valium) 4 mg Q4H PRN IV muscle spasm Last administered on 10/08/18at 15:56; Admin Dose 4 MG; Start 10/04/18 at 23:00 Magnesium Sulfate 50 ml @ 25 mls/hr TID IVPB Last administered on 10/09/18 08:26; Admin Dose 25 MLS/HR; Start 10/05/18 at 21:00 Diazepam (Valium) 5 mg Q3 PO Last administered on 10/09/18 08:25; Admin Dose 5 MG; Start 10/06/18 at 18:00 Famotidine (Pepcid) 20 mg DAILY PO Last administered on 10/09/18at 08:25; Admin Dose 20 MG; Start 10/08/18 at 09:00 Polyethylene Glycol (Miralax) 17 gm BID PO ; Start 10/09/18 at 10:00 Docusate Sodium (Colace) 100 mg BID PO ; Start 10/09/18 at 21:00 Bisacodyl (Dulcolax) 10 mg DAILY PRN PO CONSTIPATION; Start 10/09/18 at 10:00 Assessment/Plan Hospital Course (Demo Recall) IMP: 1. Tetanus Infection with associated spasms though no obvious autonomic dysfunction. 2. Trismus RECS: 1. Continue abx 2. Treatment for muscle spasms with valium around the clock 3. Continue Mg 4. Follow daily VC 5. Stable to transfer to telemetry today. 6. PT once spasms improve 7. DVT prophylaxis 35 min cc time CHUCKIE PATEL MD, [facility] October 09, 2018 10:51
[2018-10-09] MEDS: POLYETHYLENE GLYCOL 17 GM PACKET PO SCH ×2 (11:23→21:01)
[2018-10-09] MEDS: ACETAMINOPHEN 325 MG TAB PO PRN ×2 (11:23→15:05)
--- NOTE | 2018-10-09 12:32 | CONS ---
Assessment/Plan Assessment/Plan Hospital Course (Demo Recall) Alert, feels better, no fevers overnight All cultures negative, CSF culture pending Antimicrobials: IV Flagyl Physical examination: Well-nourished well-developed middle-aged woman who is alert in no distress. Head atraumatic normocephalic sclera nonicteric. Neck is supple, trachea midline, no nuchal rigidity. Chest rise symmetrical breath sounds clear bilaterally. Heart: S1-S2. Abdomen soft bowel sounds present. Extremities without cyanosis edema. Neurological: Bilateral upper and lower extremities with equal strength, no focal neurologic deficits. Assessment: 1. Presumed tetanus infection, status post tetanus antitoxin. 2. Ongoing weakness with lower extremities tingling 3. Trismus Plan: Remains stable, continue present care/physical therapy, await for clinical improvement, followed neurology recommendations, await for CSF analysis Discussed with patient Consultation Date/Type/Reason Admit Date/Time October 03, 2018 at 20:47 Initial Consult Date Type of Consult id Requesting Provider: LONNY PFEIFFER MD Date/Time of Note DATE: 10/09/18 TIME: 12:30 Exam/Review of Systems Exam Vitals Vital Signs Date Temp Pulse Resp B/P (MAP) Pulse Ox O2 O2 Flow FiO2 Time Delivery Rate 10/09/18 53 17 85/51 (62) 99 Room Air 11:00 10/09/18 97.9 08:00 Intake and Output 10/08/18 10/08/18 10/09/18 1414:59 22:59 06:59 IntakeIntake Total 715 ml 185 ml 550 ml OutputOutput Total 550 ml 900 ml 550 ml BalanceBalance 165 ml -715 ml 0 ml Results Result Diagram: 10/05/18 0453 10/09/18 0547 Results 24hrs Laboratory Tests Test 10/08/18 16:51 10/09/18 05:47 CSF Tubes Submitted 4 CSF Volume 4.2 CSF Appearance SLIGHTLY HAZY CSF Color PINKISH CSF WBC 7 CSF RBC 5000 H CSF Cell Count Tube # TUBE#4 CSF Mononuclear Cells % (Auto) 57.2 CSF Polynuclear WBCs (%) 42.8 CSF Glucose 54 CSF Total Protein 56 Sodium Level 139 Potassium Level 4.1 Chloride Level 106 Carbon Dioxide Level 28 Anion Gap 5 Blood Urea Nitrogen 10 Creatinine 0.81 Est Glomerular Filtrat Rate mL/min > 60 Glucose Level 84 Calcium Level 8.8 Phosphorus Level 4.7 Magnesium Level 2.1 Medications Medication Current Medications Ondansetron HCl (Zofran Inj) 4 mg Q6H PRN IV NAUSEA AND/OR VOMITING Last administered on 10/08/18 14:20; Admin Dose 4 MG; Start 10/03/18 at 22:00 Albuterol/ Ipratropium (Duoneb) 3 ml Q2H RESP THERAPY PRN NEB SHORTNESS OF BREATH; Start 10/03/18 at 22:00 Acetaminophen (Tylenol Supp) 650 mg Q4H PRN [place] PAIN LEVEL 1-3 OR FEVER; Start 10/03/18 at 22:00 Morphine Sulfate (morphine) 3 mg Q4H PRN IV SEVERE PAIN LEVEL 7-10 Last admini stered on 10/08/18 18:57; Admin Dose 3 MG; Start 10/03/18 at 23:00 Cyclobenzaprine HCl (Flexeril) 10 mg TID PRN PO MUSCLE SPASMS Last administered on 10/08/18 23:49; Admin Dose 10 MG; Start 10/03/18 at 23:30 Metronidazole 100 ml @ 100 mls/hr Q6 IVPB Last administered on 10/09/18 11:23; Admin Dose 100 MLS/HR; Start 10/04/18 at 05:30 Enoxaparin Sodium (Lovenox) 40 mg DAILY SC ; Start 10/06/18 at 09:00 Diazepam (Valium) 4 mg Q4H PRN IV muscle spasm Last administered on 10/08/18 15:56; Admin Dose 4 MG; Start 10/04/18 at 23:00 Magnesium Sulfate 50 ml @ 25 mls/hr TID IVPB Last administered on 10/09/18 08:26; Admin Dose 25 MLS/HR; Start 10/05/18 at 21:00 Diazepam (Valium) 5 mg Q3 PO Last administered on 10/09/18 11:23; Admin Dose 5 MG; Start 10/06/18 at 18:00 Famotidine (Pepcid) 20 mg DAILY PO Last administered on 10/09/18 08:25; Admin Dose 20 MG; Start 10/08/18 at 09:00 Polyethylene Glycol (Miralax) 17 gm BID PO Last administered on 10/09/18 11:23; Admin Dose 17 GM; Start 10/09/18 at 10:00 Docusate Sodium (Colace) 100 mg BID PO ; Start 10/09/18 at 21:00 Bisacodyl (Dulcolax) 10 mg DAILY PRN PO CONSTIPATION; Start 10/09/18 at 10:00 Acetaminophen (Tylenol Tab) 650 mg Q4H PRN PO MILD PAIN(1-3)OR ELEVATED TEMP Last administered on 10/09/18at 11:23; Admin Dose 650 MG; Start 10/09/18 at 11:30 ANA VEGA NP October 09, 2018 12:32
--- NOTE | 2018-10-09 14:25 | CONS ---
Assessment/Plan Assessment/Plan Hospital Course 53 yo F with hx of migraines who is admitted to [facility] ICU for management of presumed tetanus. Neurology is consulted for management of generalized muscle spasms. Now s/p LP on 10/08/18: CSF studies are without evidence of infection. P: Cont Valium 5mg q3h for now Pain and other medical management and supportive care per IM/ID Will sign off. Please call with Qs. Consultation Date/Type/Reason Admit Date/Time October 03, 2018 at 20:47 Type of Consult Neurology Reason for Consultation management of generalized spasms Requesting Provider: LONNY PFEIFFER MD Date/Time of Note DATE: 10/09/18 TIME: 14:23 24 HR Interval Summary Free Text/Dictation Continues critical care. S/p LP. Pt has complaints of severe headache. Exam Vital Signs Vitals Vital Signs Date Temp Pulse Resp B/P (MAP) Pulse Ox O2 O2 Flow FiO2 Time Delivery Rate 10/09/18 58 12:00 10/09/18 17 85/51 (62) 99 Room Air 11:00 10/09/18 97.9 08:00 Intake and Output 10/08/18 10/08/18 10/09/18 1515:00 23:00 07:00 IntakeIntake Total 740 ml 210 ml 620 ml OutputOutput Total 550 ml 900 ml 1450 ml BalanceBalance 190 ml -690 ml -830 ml Exam PE: Gen Appearance: No Apparent Distress HEENT: Normocephalic Cardiovascular: Regular rate Lungs: Clear bilaterally Abdomen: Soft Extremities: Dry NE: The patient was alert and oriented.. Language was normal. Fund of knowledge was normal. Pupils were equal and reactive to light. There was no afferent pupillary defect. Visual lutz were normal. Funduscopic examination was limited. Extra-ocular movements were full. Ptosis was absent. There was no nystagmus. Facial sensation was normal. Face was symmetric with normal strength. Hearing was intact. Trismus was present. Palate movements were normal. Neck strength was normal; Neck ROM was limited. There was normal tongue bulk and speed of movement. Tone was normal. Muscle bulk was normal. Arms and legs were strong. Vibration sensation was normal. Temperature and pinprick sensation was normal. Rapid alternating movements were normal. There was no dysmetria. There was no intention tremor. Gait was deferred due to bedrest. Arm and leg reflexes were 2+ and symmetric. Whiteside's sign was absent. Plantar responses were flexor. NAWAF CASTAÑEDA NP October 09, 2018 14:25 CHASIDY ROCHA October 10, 2018 06:36
[2018-10-09] MEDS: CYCLOBENZAPRINE 10 MG TAB PO PRN (15:04)
[2018-10-09] MEDS: DOCUSATE SODIUM 100 MG CAP PO SCH (21:00)
[2018-10-09] MEDS: morphine 4 MG/ML VIAL IV PRN (21:02)
[2018-10-10] VITALS (10 sets, daily range): BP systolic 89–103; BP diastolic 49–56; PULSE 54–67; RESP 16–19
[2018-10-10] MEDS: metroNIDAZOLE 500 MG/NS (PMX) 100 ML IVPB SCH ×4 (01:05→17:02)
[2018-10-10] MEDS: DIAZEPAM 5 MG TAB PO SCH ×7 (01:05→21:21)
[2018-10-10] MEDS: morphine 4 MG/ML VIAL IV PRN ×4 (03:37→21:18)
[2018-10-10] MEDS: ENOXAPARIN 40 MG/0.4 ML SYG SC SCH (09:00)
[2018-10-10] MEDS: POLYETHYLENE GLYCOL 17 GM PACKET PO SCH ×2 (09:23→21:21)
[2018-10-10] MEDS: DOCUSATE SODIUM 100 MG CAP PO SCH ×2 (09:23→21:21)
[2018-10-10] MEDS: FAMOTIDINE 20 MG TAB PO SCH (09:31)
[2018-10-10] MEDS: MAGNESIUM SULFATE 2 GM/50 ML 50 ML IVPB SCH ×3 (09:32→21:21)
--- NOTE | 2018-10-10 11:55 | PN ---
Date/Time of Note Date/Time of Note DATE: 10/10/18 TIME: 11:54 Assessment/Plan VTE Prophylaxis Risk score (from Ns)>0 risk: 1 SCD applied (from Ns): No SCD contraindicated: other Pharmacological prophylaxis: LMWH Pharm contraindication: patient refusal Lines/Catheters IV [facility]ter Type (from [facility]): Peripheral IV Urinary Cath still in place: No Assessment/Plan Hospital Course SUBJECTIVE: Complains of some spasms in the left lower extremity and left upper extremity. Left ye diplopia better. Lock jaw better. Complains of poor appetite. Constipated. OBJECTIVE: Physical Exam General: Adequately build 53 year-old male lying in bed in no apparent distress. HEENT: Normocephalic, atraumatic. Eyes: Anicteric sclerae, conjunctivae clear. ENT: Nasal septum midline, oral mucosa moist. Neck supple, no JVD noticed. Respiratory: Bilaterally clear breath sounds. No use of accessory muscles of respiration. No adventitious breath sounds. Cardiovascular: S1, S2 heard. Regular rate and rhythm. Abdomen: Soft, nontender, and nondistended. Bowel sounds positive in all 4 quadrants. Genitourinary: Deferred. Extremities: No cyanosis, no clubbing, no edema. Peripheral pulses palpable. Neurologic: Cranial nerves II through XII grossly intact. The patient is awake, alert, and oriented. Skin: Normal skin turgor. No skin rashes. Labs & Vitals per chart ASSESSMENT & PLAN 53-year-old female with no significant comorbidities other than remote history of migraine headache who presented to the emergency department with chief complaint of generalized muscle spasms including trismus, who recently had a puncture wound from reported nail and was not adequately immunized for tetanus. 1. Presumed tetanus. -Status post evaluation by podiatry for reported puncture wound of the left foot and no obvious wound. -Continue Flagyl. -Status post tetanus immunoglobulin. -Continue [id number] muscle relaxants. -Being followed by neurology and pulmonology. -Status post lumbar puncture on 10/08/2018. 2. Cephalgia. -Reported different headache when compared to her migraine episodes. -Brain MRI showing 1 to 2 mm focus of T2 hyper signal intensity involve the subcortical region of left temporal occipital region. -Being followed by neurology. 3. Fluids, electrolytes, and nutrition. -Mechanical soft diet. 4. DVT prophylaxis -Subcutaneous Lovenox (patient refusing). 5. Plan. -Continue current management. -Await clinical improvement. The patient was seen in collaboration with Dr. Murillo. Result Diagram: 10/10/1834 10/10/1834 Results 24hrs Laboratory Tests Test 10/10/18 05:34 White Blood Count 5.9 Red Blood Count 3.56 L Hemoglobin 12.1 Hematocrit 35.8 L Mean Corpuscular Volume 100.6 Mean Corpuscular Hemoglobin 34.0 H Mean Corpuscular Hemoglobin Concent 33.8 Red Cell Distribution Width 11.5 Platelet Count 189 Mean Platelet Volume 10.4 Immature Granulocytes % 0.300 Neutrophils % 61.1 Lymphocytes % 24.6 Monocytes % 6.9 Eosinophils % 5.4 Basophils % 1.7 Nucleated Red Blood Cells % 0.0 Immature Granulocytes # 0.020 Neutrophils # 3.6 Lymphocytes # 1.5 Monocytes # 0.4 Eosinophils # 0.3 Basophils # 0.1 Nucleated Red Blood Cells # 0.0 Sodium Level 137 Potassium Level 4.8 Chloride Level 104 Carbon Dioxide Level 28 Anion Gap 5 Blood Urea Nitrogen 14 Creatinine 0.88 Est Glomerular Filtrat Rate mL/min > 60 Glucose Level 83 Calcium Level 9.1 Phosphorus Level 4.2 Magnesium Level 2.0 Exam/Review of Systems Exam Vitals Vital Signs Date Temp Pulse Resp B/P (MAP) Pulse Ox O2 O2 Flow FiO2 Time Delivery Rate 10/10/18 98.2 57 19 98/51 (67) 98 11:24 10/10/18 21 02:29 10/09/18 Room Air 11:00 Intake and Output 10/09/18 10/09/18 10/10/18 1515:00 23:00 07:00 IntakeIntake Total 290 ml 400 ml OutputOutput Total 400 ml 650 ml BalanceBalance -110 ml -250 ml Results Results 24hrs Laboratory Tests Test 10/10/18 05:34 White Blood Count 5.9 Red Blood Count 3.56 L Hemoglobin 12.1 Hematocrit 35.8 L Mean Corpuscular Volume 100.6 Mean Corpuscular Hemoglobin 34.0 H Mean Corpuscular Hemoglobin Concent 33.8 Red Cell Distribution Width 11.5 Platelet Count 189 Mean Platelet Volume 10.4 Immature Granulocytes % 0.300 Neutrophils % 61.1 Lymphocytes % 24.6 Monocytes % 6.9 Eosinophils % 5.4 Basophils % 1.7 Nucleated Red Blood Cells % 0.0 Immature Granulocytes # 0.020 Neutrophils # 3.6 Lymphocytes # 1.5 Monocytes # 0.4 Eosinophils # 0.3 Basophils # 0.1 Nucleated Red Blood Cells # 0.0 Sodium Level 137 Potassium Level 4.8 Chloride Level 104 Carbon Dioxide Level 28 Anion Gap 5 Blood Urea Nitrogen 14 Creatinine 0.88 Est Glomerular Filtrat Rate mL/min > 60 Glucose Level 83 Calcium Level 9.1 Phosphorus Level 4.2 Magnesium Level 2.0 Medications Medication Current Medications Ondansetron HCl (Zofran Inj) 4 mg Q6H PRN IV NAUSEA AND/OR VOMITING Last administered on 10/08/18 14:20; Admin Dose 4 MG; Start 10/03/18 at 22:00 Albuterol/ Ipratropium (Duoneb) 3 ml Q2H RESP THERAPY PRN NEB SHORTNESS OF BREATH; Start 10/03/18 at 22:00 Acetaminophen (Tylenol Supp) 650 mg Q4H PRN [place] PAIN LEVEL 1-3 OR FEVER; Start 10/03/18 at 22:00 Morphine Sulfate (morphine) 3 mg Q4H PRN IV SEVERE PAIN LEVEL 7-10 Last administered on 10/10/18 09:23; Admin Dose 3 MG; Start 10/03/18 at 23:00 Cyclobenzaprine HCl (Flexeril) 10 mg TID PRN PO MUSCLE SPASMS Last administered on 10/09/18 15:04; Admin Dose 10 MG; Start 10/03/18 at 23:30 Metronidazole 100 ml @ 100 mls/hr Q6 IVPB Last administered on 10/10/18 11:28; Admin Dose 100 MLS/HR; Start 10/04/18 at 05:30 Enoxaparin Sodium (Lovenox) 40 mg DAILY SC ; Start 10/06/18 at 09:00 Diazepam (Valium) 4 mg Q4H PRN IV muscle spasm Last administered on 10/08/18 15:56; Admin Dose 4 MG; Start 10/04/18 at 23:00 Magnesium Sulfate 50 ml @ 25 mls/hr TID IVPB Last administered on 10/10/18 09:32; Admin Dose 25 MLS/HR; Start 10/05/18 at 21:00 Diazepam (Valium) 5 mg Q3 PO Last administered on 10/10/18 09:22; Admin Dose 5 MG; Start 10/06/18 at 18:00 Famotidine (Pepcid) 20 mg DAILY PO Last administered on 10/10/18 09:31; Admin Dose 20 MG; Start 10/08/18 at 09:00 Polyethylene Glycol (Miralax) 17 gm BID PO Last administered on 10/10/18 09:23; Admin Dose 17 GM; Start 10/09/18 at 10:00 Docusate Sodium (Colace) 100 mg BID PO Last administered on 10/10/18 09:23; Admin Dose 100 MG; Start 10/09/18 at 21:00 Bisacodyl (Dulcolax) 10 mg DAILY PRN PO CONSTIPATION; Start 10/09/18 at 10:00 Acetaminophen (Tylenol Tab) 650 mg Q4H PRN PO MILD PAIN(1-3)OR ELEVATED TEMP Last administered on 10/09/18 15:05; Admin Dose 650 MG; Start 10/09/18 at 11:30 WILLIAM ANDRE NP October 10, 2018 11:55
--- NOTE | 2018-10-10 15:06 | CONS ---
Consult Date/Type/Reason Admit Date/Time October 03, 2018 at 20:47 Initial Consult Date Type of Consult Pulmonary Requesting Provider: LONNY PFEIFFER MD Date/Time of Note DATE: 10/10/18 TIME: 15:05 Subjective Patient stable. No respiratory distress Objective Vital Signs Date Temp Pulse Resp B/P (MAP) Pulse Ox O2 O2 Flow FiO2 Time Delivery Rate 10/10/18 54 12:23 10/10/18 98.2 19 98/51 (67) 98 11:24 10/10/18 21 02:29 10/09/18 Room Air 11:00 Intake and Output 10/09/18 10/09/18 10/10/18 1414:59 22:59 06:59 IntakeIntake Total 410 ml 400 ml OutputOutput Total 1300 ml 650 ml BalanceBalance -890 ml -250 ml Exam GENERAL: Well-nourished well-developed lady comfortable at rest no acute distress VITAL SIGNS: per chart NECK: Supple. No JVD or lymphadenopathy. CARDIAC EXAM: S1, S2. No added sounds or murmurs. CHEST: clear bilaterally, No added sounds, rales or wheezes ABDOMEN: Soft, nontender. No guarding or rebound. EXTREMITIES: No cyanosis, clubbing or edema. NEUROLOGIC: Generalized weakness. No focal deficits. Vent Setting Fraction of Inspired Oxygen pe: 21 Results/Medications Result Diagram: 10/10/18 0534 10/10/18 0534 Results 24 hrs Laboratory Tests Test 10/10/18 05:34 White Blood Count 5.9 Red Blood Count 3.56 L Hemoglobin 12.1 Hematocrit 35.8 L Mean Corpuscular Volume 100.6 Mean Corpuscular Hemoglobin 34.0 H Mean Corpuscular Hemoglobin Concent 33.8 Red Cell Distribution Width 11.5 Platelet Count 189 Mean Platelet Volume 10.4 Immature Granulocytes % 0.300 Neutrophils % 61.1 Lymphocytes % 24.6 Monocytes % 6.9 Eosinophils % 5.4 Basophils % 1.7 Nucleated Red Blood Cells % 0.0 Immature Granulocytes # 0.020 Neutrophils # 3.6 Lymphocytes # 1.5 Monocytes # 0.4 Eosinophils # 0.3 Basophils # 0.1 Nucleated Red Blood Cells # 0.0 Sodium Level 137 Potassium Level 4.8 Chloride Level 104 Carbon Dioxide Level 28 Anion Gap 5 Blood Urea Nitrogen 14 Creatinine 0.88 Est Glomerular Filtrat Rate mL/min > 60 Glucose Level 83 Calcium Level 9.1 Phosphorus Level 4.2 Magnesium Level 2.0 Medications Current Medications Ondansetron HCl (Zofran Inj) 4 mg Q6H PRN IV NAUSEA AND/OR VOMITING Last administered on 10/08/18 14:20; Admin Dose 4 MG; Start 10/03/18 at 22:00 Albuterol/ Ipratropium (Duoneb) 3 ml Q2H RESP THERAPY PRN NEB SHORTNESS OF BREATH; Start 10/03/18 at 22:00 Acetaminophen (Tylenol Supp) 650 mg Q4H PRN [place] PAIN LEVEL 1-3 OR FEVER; Start 10/03/18 at 22:00 Morphine Sulfate (morphine) 3 mg Q4H PRN IV SEVERE PAIN LEVEL 7-10 Last administered on 10/10/18 14:25; Admin Dose 3 MG; Start 10/03/18 at 23:00 Cyclobenzaprine HCl (Flexeril) 10 mg TID PRN PO MUSCLE SPASMS Last administered on 10/09/18 15:04; Admin Dose 10 MG; Start 10/03/18 at 23:30 Metronidazole 100 ml @ 100 mls/hr Q6 IVPB Last administered on 10/10/18 11:28; Admin Dose 100 MLS/HR; Start 10/04/18 at 05:30 Enoxaparin Sodium (Lovenox) 40 mg DAILY SC ; Start 10/06/18 at 09:00 Diazepam (Valium) 4 mg Q4H PRN IV muscle spasm Last administered on 10/08/18 15:56; Admin Dose 4 MG; Start 10/04/18 at 23:00 Magnesium Sulfate 50 ml @ 25 mls/hr TID IVPB Last administered on 10/10/18 14:07; Admin Dose 25 MLS/HR; Start 10/05/18 at 21:00 Diazepam (Valium) 5 mg Q3 PO Last administered on 10/10/18 14:20; Admin Dose 5 MG; Start 10/06/18 at 18:00 Famotidine (Pepcid) 20 mg DAILY PO Last administered on 10/10/18 09:31; Admin Dose 20 MG; Start 10/08/18 at 09:00 Polyethylene Glycol (Miralax) 17 gm BID PO Last administered on 10/10/18 09:23; Admin Dose 17 GM; Start 10/09/18 at 10:00 Docusate Sodium (Colace) 100 mg BID PO Last administered on 10/10/18at 09:23; Admin Dose 100 MG; Start 10/09/18 at 21:00 Bisacodyl (Dulcolax) 10 mg DAILY PRN PO CONSTIPATION; Start 10/09/18 at 10:00 Acetaminophen (Tylenol Tab) 650 mg Q4H PRN PO MILD PAIN(1-3)OR ELEVATED TEMP Last administered on 10/09/18at 15:05; Admin Dose 650 MG; Start 10/09/18 at 11:30 Assessment/Plan Hospital Course (Demo Recall) IMP: 1. Tetanus Infection with associated spasms though no obvious autonomic dysfunction. 2. Trismus RECS: 1. Continue abx 2. Valium as needed 3. Continue Mg 4. DC vital capacity DC planning [facility]EL MD[facility] October 10, 2018 15:06
--- NOTE | 2018-10-10 15:30 | CONS ---
Assessment/Plan Assessment/Plan Hospital Course (Demo Recall) Alert, feels better, no fevers overnight All cultures negative, CSF culture pending Antimicrobials: IV Flagyl Physical examination: Well-nourished well-developed middle-aged woman who is alert in no distress. Head atraumatic normocephalic sclera nonicteric. Neck is supple, trachea midline, no nuchal rigidity. Chest rise symmetrical breath sounds clear bilaterally. Heart: S1-S2. Abdomen soft bowel sounds present. Extremities without cyanosis edema. Neurological: Bilateral upper and lower extremities with equal strength, no focal neurologic deficits. Assessment: 1. Presumed tetanus infection, status post tetanus antitoxin. 2. Ongoing weakness with lower extremities tingling 3. Trismus Plan: Remains stable, continue present care/physical therapy, await for clinical improvement, followed neurology recommendations, await for CSF analysis Discussed with patient Consultation Date/Type/Reason Admit Date/Time October 03, 2018 at 20:47 Initial Consult Date Type of Consult id Requesting Provider: LONNY PFEIFFER MD Date/Time of Note DATE: 10/10/18 TIME: 15:29 Exam/Review of Systems Exam Vitals Vital Signs Date Temp Pulse Resp B/P (MAP) Pulse Ox O2 O2 Flow FiO2 Time Delivery Rate 10/10/18 98.2 62 19 89/52 (64) 97 15:24 10/10/18 21 02:29 10/09/18 Room Air 11:00 Intake and Output 10/09/18 10/09/18 10/10/18 1515:00 23:00 07:00 IntakeIntake Total 290 ml 400 ml OutputOutput Total 400 ml 650 ml BalanceBalance -110 ml -250 ml Results Result Diagram: 10/10/18 0534 10/10/18 0534 Results 24hrs Laboratory Tests Test 10/10/18 05:34 White Blood Count 5.9 Red Blood Count 3.56 L Hemoglobin 12.1 Hematocrit 35.8 L Mean Corpuscular Volume 100.6 Mean Corpuscular Hemoglobin 34.0 H Mean Corpuscular Hemoglobin Concent 33.8 Red Cell Distribution Width 11.5 Platelet Count 189 Mean Platelet Volume 10.4 Immature Granulocytes % 0.300 Neutrophils % 61.1 Lymphocytes % 24.6 Monocytes % 6.9 Eosinophils % 5.4 Basophils % 1.7 Nucleated Red Blood Cells % 0.0 Immature Granulocytes # 0.020 Neutrophils # 3.6 Lymphocytes # 1.5 Monocytes # 0.4 Eosinophils # 0.3 Basophils # 0.1 Nucleated Red Blood Cells # 0.0 Sodium Level 137 Potassium Level 4.8 Chloride Level 104 Carbon Dioxide Level 28 Anion Gap 5 Blood Urea Nitrogen 14 Creatinine 0.88 Est Glomerular Filtrat Rate mL/min > 60 Glucose Level 83 Calcium Level 9.1 Phosphorus Level 4.2 Magnesium Level 2.0 Medications Medication Current Medications Ondansetron HCl (Zofran Inj) 4 mg Q6H PRN IV NAUSEA AND/OR VOMITING Last administered on 10/08/18 14:20; Admin Dose 4 MG; Start 10/03/18 at 22:00 Albuterol/ Ipratropium (Duoneb) 3 ml Q2H RESP THERAPY PRN NEB SHORTNESS OF BREATH; Start 10/03/18 at 22:00 Acetaminophen (Tylenol Supp) 650 mg Q4H PRN [place] PAIN LEVEL 1-3 OR FEVER; Start 10/03/18 at 22:00 Morphine Sulfate (morphine) 3 mg Q4H PRN IV SEVERE PAIN LEVEL 7-10 Last administered on 10/10/18 14:25; Admin Dose 3 MG; Start 10/03/18 at 23:00 Cyclobenzaprine HCl (Flexeril) 10 mg TID PRN PO MUSCLE SPASMS Last administered on 10/09/18 15:04; Admin Dose 10 MG; Start 10/03/18 at 23:30 Metronidazole 100 ml @ 100 mls/hr Q6 IVPB Last administered on 10/10/18 11:28; Admin Dose 100 MLS/HR; Start 10/04/18 at 05:30 Enoxaparin Sodium (Lovenox) 40 mg DAILY SC ; Start 10/06/18 at 09:00 Diazepam (Valium) 4 mg Q4H PRN IV muscle spasm Last administered on 10/08/18 15:56; Admin Dose 4 MG; Start 10/04/18 at 23:00 Magnesium Sulfate 50 ml @ 25 mls/hr TID IVPB Last administered on 10/10/18 14:07; Admin Dose 25 MLS/HR; Start 10/05/18 at 21:00 Diazepam (Valium) 5 mg Q3 PO Last administered on 10/10/18 14:20; Admin Dose 5 MG; Start 10/06/18 at 18:00 Famotidine (Pepcid) 20 mg DAILY PO Last administered on 10/10/18 09:31; Admin Dose 20 MG; Start 10/08/18 at 09:00 Polyethylene Glycol (Miralax) 17 gm BID PO Last administered on 10/10/18 09:23; Admin Dose 17 GM; Start 10/09/18 at 10:00 Docusate Sodium (Colace) 100 mg BID PO Last administered on 10/10/18 09:23; Admin Dose 100 MG; Start 10/09/18 at 21:00 Bisacodyl (Dulcolax) 10 mg DAILY PRN PO CONSTIPATION; Start 10/09/18 at 10:00 Acetaminophen (Tylenol Tab) 650 mg Q4H PRN PO MILD PAIN(1-3)OR ELEVATED TEMP Last administered on 10/09/18 15:05; Admin Dose 650 MG; Start 10/09/18 at 11:30 ANA VEGA NP October 10, 2018 15:30
--- NOTE | 2018-10-10 20:25 | RADRPT ---
Vent Rate: 51 bpm RR Interval: 1180 msec AL Interval: 173 msec QRS Duration: 97 msec QT Interval: 429 msec QTC Interval: 395 msec P-R-T Rena Lara: 23 - 52 - 53 degrees Sinus rhythm...normal P axis, V-rate 50- 99 Electronically Signed By: Chino Tinajero
[2018-10-11] VITALS (11 sets, daily range): BP systolic 85–98; BP diastolic 46–55; PULSE 55–74; RESP 18–20
[2018-10-11] MEDS: metroNIDAZOLE 500 MG/NS (PMX) 100 ML IVPB SCH ×4 (00:18→18:40)
[2018-10-11] MEDS: DIAZEPAM 5 MG TAB PO SCH ×8 (00:18→20:55)
[2018-10-11] MEDS: morphine 4 MG/ML VIAL IV PRN (05:56)
--- NOTE | 2018-10-11 06:04 | PN ---
Date/Time of Note Date/Time of Note DATE: 10/11/18 TIME: 06:03 Assessment/Plan VTE Prophylaxis Risk score (from Ns)>0 risk: 1 SCD applied (from Ns): No SCD contraindicated: other Pharmacological prophylaxis: LMWH Lines/Catheters IV C[facility]ter Type (from [facility]): Peripheral IV Urinary Cath still in place: No Assessment/Plan Hospital Course SUBJECTIVE: Complains of some spasms in the left lower extremity and left upper extremity. Left eye diplopia better. Lock jaw better. Complains of poor appetite. OBJECTIVE: Physical Exam General: Adequately build 53 year-old male lying in bed in no apparent distress. HEENT: Normocephalic, atraumatic. Eyes: Anicteric sclerae, conjunctivae clear. ENT: Nasal septum midline, oral mucosa moist. Neck supple, no JVD noticed. Respiratory: Bilaterally clear breath sounds. No use of accessory muscles of respiration. No adventitious breath sounds. Cardiovascular: S1, S2 heard. Regular rate and rhythm. Abdomen: Soft, nontender, and nondistended. Bowel sounds positive in all 4 quadrants. Genitourinary: Deferred. Extremities: No cyanosis, no clubbing, no edema. Peripheral pulses palpable. Neurologic: Cranial nerves II through XII grossly intact. The patient is awake, alert, and oriented. Skin: Normal skin turgor. No skin rashes. Labs & Vitals per chart ASSESSMENT & PLAN 53-year-old female with no significant comorbidities other than remote history of migraine headache who presented to the emergency department with chief complaint of generalized muscle spasms including trismus, who recently had a puncture wound from reported nail and was not adequately immunized for tetanus. 1. Presumed tetanus. -Status post evaluation by podiatry for reported puncture wound of the left foot and no obvious wound. -Continue Flagyl. -Status post tetanus immunoglobulin. -Continue [id number] muscle relaxants. -Being followed by neurology and pulmonology. -Status post lumbar puncture on 10/08/2018. 2. Cephalgia. -Reported different headache when compared to her migraine episodes. -Brain MRI showing 1 to 2 mm focus of T2 hyper signal intensity involve the subcortical region of left temporal occipital region. -Being followed by neurology. 3. Fluids, electrolytes, and nutrition. -Mechanical soft diet. 4. DVT prophylaxis -Subcutaneous Lovenox (patient refusing). 5. Plan. -Continue current management. -Await clinical improvement. Move the patient to medical surgical floor. The patient was seen in collaboration with Dr. Murillo. Result Diagram: 10/10/1853310/10/18533 Exam/Review of Systems Exam Vitals Vital Signs Date Temp Pulse Resp B/P (MAP) Pulse Ox O2 O2 Flow FiO2 Time Delivery Rate 10/11/18 98.3 55 18 90/52 (65) 99 Room Air 04:18 10/10/18 21 02:29 Intake and Output 10/10/18 10/10/18 10/11/18 1515:00 23:00 07:00 IntakeIntake Total 500 ml 1000 ml BalanceBalance 500 ml 1000 ml Medications Medication Current Medications Ondansetron HCl (Zofran Inj) 4 mg Q6H PRN IV NAUSEA AND/OR VOMITING Last administered on 10/08/18at 14:20; Admin Dose 4 MG; Start 10/03/18 at 22:00 Albuterol/ Ipratropium (Duoneb) 3 ml Q2H RESP THERAPY PRN NEB SHORTNESS OF BREATH; Start 10/03/18 at 22:00 Acetaminophen (Tylenol Supp) 650 mg Q4H PRN [place] PAIN LEVEL 1-3 OR FEVER; Start 10/03/18 at 22:00 Morphine Sulfate (morphine) 3 mg Q4H PRN IV SEVERE PAIN LEVEL 7-10 Last administered on 10/11/18at 05:56; Admin Dose 3 MG; Start 10/03/18 at 23:00 Cyclobenzaprine HCl (Flexeril) 10 mg TID PRN PO MUSCLE SPASMS Last administered on 10/09/18at 15:04; Admin Dose 10 MG; Start 10/03/18 at 23:30 Metronidazole 100 ml @ 100 mls/hr Q6 IVPB Last administered on 10/11/18at 05:58; Admin Dose 100 MLS/HR; Start 10/04/18 at 05:30 Enoxaparin Sodium (Lovenox) 40 mg DAILY SC ; Start 10/06/18 at 09:00 Diazepam (Valium) 4 mg Q4H PRN IV muscle spasm Last administered on 10/08/18at 15:56; Admin Dose 4 MG; Start 10/04/18 at 23:00 Magnesium Sulfate 50 ml @ 25 mls/hr TID IVPB Last administered on 10/10/18 21:21; Admin Dose 25 MLS/HR; Start 10/05/18 at 21:00 Diazepam (Valium) 5 mg Q3 PO Last administered on 10/11/18 03:45; Admin Dose 5 MG; Start 10/06/18 at 18:00 Famotidine (Pepcid) 20 mg DAILY PO Last administered on 10/10/18 09:31; Admin Dose 20 MG; Start 10/08/18 at 09:00 Polyethylene Glycol (Miralax) 17 gm BID PO Last administered on 10/10/18 21:21; Admin Dose 17 GM; Start 10/09/18 at 10:00 Docusate Sodium (Colace) 100 mg BID PO Last administered on 10/10/18 21:21; Admin Dose 100 MG; Start 10/09/18 at 21:00 Bisacodyl (Dulcolax) 10 mg DAILY PRN PO CONSTIPATION; Start 10/09/18 at 10:00 Acetaminophen (Tylenol Tab) 650 mg Q4H PRN PO MILD PAIN(1-3)OR ELEVATED TEMP Last administered on 10/09/18 15:05; Admin Dose 650 MG; Start 10/09/18 at 11:30 WILLIAM ANDRE NP October 11, 2018 06:04
[2018-10-11] MEDS: FAMOTIDINE 20 MG TAB PO SCH (08:59)
[2018-10-11] MEDS: DOCUSATE SODIUM 100 MG CAP PO SCH ×2 (08:59→20:55)
[2018-10-11] MEDS: MAGNESIUM SULFATE 2 GM/50 ML 50 ML IVPB SCH ×3 (09:00→23:04)
[2018-10-11] MEDS: POLYETHYLENE GLYCOL 17 GM PACKET PO SCH ×2 (09:00→20:56)
[2018-10-11] MEDS: ENOXAPARIN 40 MG/0.4 ML SYG SC SCH (09:12)
[2018-10-11] MEDS ORDERED: LACTULOSE 30ML CUP PO ONE (11:00)
[2018-10-11] MEDS: CYCLOBENZAPRINE 10 MG TAB PO PRN (14:00)
--- NOTE | 2018-10-11 14:34 | CONS ---
Consult Date/Type/Reason Admit Date/Time October 03, 2018 at 20:47 Initial Consult Date Type of Consult Pulmonary Requesting Provider: LONNY PFEIFFER MD Date/Time of Note DATE: 10/11/18 TIME: 14:33 Subjective Decreasing muscle rigidity. Beginning to ambulate. No shortness of breath. Objective Vital Signs Date Temp Pulse Resp B/P (MAP) Pulse Ox O2 O2 Flow FiO2 Time Delivery Rate 10/11/18 73 12:53 10/11/18 98.3 20 97/49 (65) 99 11:23 10/11/18 Room Air 04:18 10/10/18 21 02:29 Intake and Output 10/10/18 10/10/18 10/11/18 1515:00 23:00 07:00 IntakeIntake Total 500 ml 1000 ml BalanceBalance 500 ml 1000 ml Exam GENERAL: Well-nourished well-developed lady comfortable at rest no acute distress VITAL SIGNS: per chart NECK: Supple. No JVD or lymphadenopathy. CARDIAC EXAM: S1, S2. No added sounds or murmurs. CHEST: clear bilaterally, No added sounds, rales or wheezes ABDOMEN: Soft, nontender. No guarding or rebound. EXTREMITIES: No cyanosis, clubbing or edema. NEUROLOGIC: Generalized weakness. No focal deficits. Vent Setting Fraction of Inspired Oxygen pe: 21 Results/Medications Result Diagram: 10/10/18 0534 10/11/18 0545 Results 24 hrs Laboratory Tests Test 10/11/18 05:45 Sodium Level 139 Potassium Level 4.1 Chloride Level 104 Carbon Dioxide Level 29 Anion Gap 6 Blood Urea Nitrogen 11 Creatinine 0.75 Est Glomerular Filtrat Rate mL/min > 60 Glucose Level 93 Calcium Level 9.5 Phosphorus Level 4.3 Magnesium Level 2.0 Medications Current Medications Ondansetron HCl (Zofran Inj) 4 mg Q6H PRN IV NAUSEA AND/OR VOMITING Last administered on 10/08/18at 14:20; Admin Dose 4 MG; Start 10/03/18 at 22:00 Albuterol/ Ipratropium (Duoneb) 3 ml Q2H RESP THERAPY PRN NEB SHORTNESS OF BREATH; Start 10/03/18 at 22:00 Acetaminophen (Tylenol Supp) 650 mg Q4H PRN [place] PAIN LEVEL 1-3 OR FEVER; Start 10/03/18 at 22:00 Morphine Sulfate (morphine) 3 mg Q4H PRN IV SEVERE PAIN LEVEL 7-10 Last administered on 10/11/18 05:56; Admin Dose 3 MG; Start 10/03/18 at 23:00 Cyclobenzaprine HCl (Flexeril) 10 mg TID PRN PO MUSCLE SPASMS Last administered on 10/11/18 14:00; Admin Dose 10 MG; Start 10/03/18 at 23:30 Metronidazole 100 ml @ 100 mls/hr Q6 IVPB Last administered on 10/11/18 13:56; Admin Dose 100 MLS/HR; Start 10/04/18 at 05:30 Enoxaparin Sodium (Lovenox) 40 mg DAILY SC Last administered on 10/11/18 09:12; Admin Dose 40 MG; Start 10/06/18 at 09:00 Diazepam (Valium) 4 mg Q4H PRN IV muscle spasm Last administered on 10/08/18 15:56; Admin Dose 4 MG; Start 10/04/18 at 23:00 Magnesium Sulfate 50 ml @ 25 mls/hr TID IVPB Last administered on 10/11/18 13:57; Admin Dose 25 MLS/HR; Start 10/05/18 at 21:00 Diazepam (Valium) 5 mg Q3 PO Last administered on 10/11/18 13:56; Admin Dose 5 MG; Start 10/06/18 at 18:00 Famotidine (Pepcid) 20 mg DAILY PO Last administered on 10/11/18 08:59; Admin Dose 20 MG; Start 10/08/18 at 09:00 Polyethylene Glycol (Miralax) 17 gm BID PO Last administered on 10/11/18 09:00; Admin Dose 17 GM; Start 10/09/18 at 10:00 Docusate Sodium (Colace) 100 mg BID PO Last administered on 10/11/18 08:59; Admin Dose 100 MG; Start 10/09/18 at 21:00 Bisacodyl (Dulcolax) 10 mg DAILY PRN PO CONSTIPATION; Start 10/09/18 at 10:00 Acetaminophen (Tylenol Tab) 650 mg Q4H PRN PO MILD PAIN(1-3)OR ELEVATED TEMP Last administered on 10/09/18 15:05; Admin Dose 650 MG; Start 10/09/18 at 11:30 Assessment/Plan Hospital Course (Demo Recall) iMP: 1. Tetanus Infection with associated spasms though no obvious autonomic dysfunction. 2. Trismus RECS: 1. Continue abx 2. Valium as needed 3. Continue Mg 4. DC vital capacity 5. Agree with transfer to [facility] DC planning CHUCKIE PATEL MD, [facility] October 11, 2018 14:34
--- NOTE | 2018-10-11 14:57 | CONS ---
Assessment/Plan Assessment/Plan Hospital Course (Demo Recall) All noted, no acute events overnight, patient feels better All cultures negative Antimicrobials: IV Flagyl Physical examination: Well-nourished well-developed middle-aged woman who is alert in no distress. Head atraumatic normocephalic sclera nonicteric. Neck is supple, trachea midline, no nuchal rigidity. Chest rise symmetrical breath sounds clear bilaterally. Heart: S1-S2. Abdomen soft bowel sounds present. Extremities without cyanosis edema. Neurological: Bilateral upper and lower extremities with equal strength, no focal neurologic deficits. Assessment: 1. Presumed tetanus infection, status post tetanus antitoxin. 2. Ongoing weakness with lower extremities tingling 3. Trismus Plan: Remains stable, continue present care/physical therapy, await for clinical improvement Consultation Date/Type/Reason Admit Date/Time October 03, 2018 at 20:47 Initial Consult Date Type of Consult id Requesting Provider: LONNY PFEIFFER MD Date/Time of Note DATE: 10/11/18 TIME: 14:56 Exam/Review of Systems Exam Vitals Vital Signs Date Temp Pulse Resp B/P (MAP) Pulse Ox O2 O2 Flow FiO2 Time Delivery Rate 10/11/18 73 12:53 10/11/18 98.3 20 97/49 (65) 99 11:23 10/11/18 Room Air 04:18 10/10/18 21 02:29 Intake and Output 10/10/18 10/10/18 10/11/18 1515:00 23:00 07:00 IntakeIntake Total 500 ml 1000 ml BalanceBalance 500 ml 1000 ml Results Result Diagram: 10/10/18 0534 10/11/18 0545 Results 24hrs Laboratory Tests Test 10/11/18 05:45 Sodium Level 139 Potassium Level 4.1 Chloride Level 104 Carbon Dioxide Level 29 Anion Gap 6 Blood Urea Nitrogen 11 Creatinine 0.75 Est Glomerular Filtrat Rate mL/min > 60 Glucose Level 93 Calcium Level 9.5 Phosphorus Level 4.3 Magnesium Level 2.0 Medications Medication Current Medications Ondansetron HCl (Zofran Inj) 4 mg Q6H PRN IV NAUSEA AND/OR VOMITING Last administered on 10/08/18at 14:20; Admin Dose 4 MG; Start 10/03/18 at 22:00 Albuterol/ Ipratropium (Duoneb) 3 ml Q2H RESP THERAPY PRN NEB SHORTNESS OF BREATH; Start 10/03/18 at 22:00 Acetaminophen (Tylenol Supp) 650 mg Q4H PRN [place] PAIN LEVEL 1-3 OR FEVER; Start 10/03/18 at 22:00 Morphine Sulfate (morphine) 3 mg Q4H PRN IV SEVERE PAIN LEVEL 7-10 Last adminis tered on 10/11/18 05:56; Admin Dose 3 MG; Start 10/03/18 at 23:00 Cyclobenzaprine HCl (Flexeril) 10 mg TID PRN PO MUSCLE SPASMS Last administered on 10/11/18 14:00; Admin Dose 10 MG; Start 10/03/18 at 23:30 Metronidazole 100 ml @ 100 mls/hr Q6 IVPB Last administered on 10/11/18 13:56; Admin Dose 100 MLS/HR; Start 10/04/18 at 05:30 Enoxaparin Sodium (Lovenox) 40 mg DAILY SC Last administered on 10/11/18 09:12; Admin Dose 40 MG; Start 10/06/18 at 09:00 Diazepam (Valium) 4 mg Q4H PRN IV muscle spasm Last administered on 10/08/18 15:56; Admin Dose 4 MG; Start 10/04/18 at 23:00 Magnesium Sulfate 50 ml @ 25 mls/hr TID IVPB Last administered on 10/11/18 13:57; Admin Dose 25 MLS/HR; Start 10/05/18 at 21:00 Diazepam (Valium) 5 mg Q3 PO Last administered on 10/11/18 13:56; Admin Dose 5 MG; Start 10/06/18 at 18:00 Famotidine (Pepcid) 20 mg DAILY PO Last administered on 10/11/18 08:59; Admin Dose 20 MG; Start 10/08/18 at 09:00 Polyethylene Glycol (Miralax) 17 gm BID PO Last administered on 10/11/18 09:00; Admin Dose 17 GM; Start 10/09/18 at 10:00 Docusate Sodium (Colace) 100 mg BID PO Last administered on 10/11/18 08:59; Admin Dose 100 MG; Start 10/09/18 at 21:00 Bisacodyl (Dulcolax) 10 mg DAILY PRN PO CONSTIPATION; Start 10/09/18 at 10:00 Acetaminophen (Tylenol Tab) 650 mg Q4H PRN PO MILD PAIN(1-3)OR ELEVATED TEMP Last administered on 10/09/18at 15:05; Admin Dose 650 MG; Start 10/09/18 at 11:30 ANA VEGA NP October 11, 2018 14:57
[2018-10-11] MEDS: IBUPROFEN 400 MG TAB PO PRN (17:43)
[2018-10-11] MEDS: ONDANSETRON 4 MG INJ IV PRN (21:16)
[2018-10-12] MEDS: metroNIDAZOLE 500 MG/NS (PMX) 100 ML IVPB SCH ×3 (00:37→11:30)
[2018-10-12] MEDS: IBUPROFEN 400 MG TAB PO PRN ×2 (00:37→11:30)
[2018-10-12] MEDS: DIAZEPAM 5 MG TAB PO SCH ×8 (00:37→21:34)
[2018-10-12 01:38] VITALS: BP 100/57; PULSE 77; RESP 17
[2018-10-12 07:30] VITALS: BP 91/44; PULSE 52; RESP 18
[2018-10-12] MEDS: ENOXAPARIN 40 MG/0.4 ML SYG SC SCH (09:00)
[2018-10-12] MEDS: DOCUSATE SODIUM 100 MG CAP PO SCH ×2 (09:00→20:48)
[2018-10-12] MEDS: POLYETHYLENE GLYCOL 17 GM PACKET PO SCH ×2 (09:00→20:48)
[2018-10-12] MEDS: FAMOTIDINE 20 MG TAB PO SCH (09:08)
--- NOTE | 2018-10-12 10:06 | PN ---
Date/Time of Note Date/Time of Note DATE: 10/12/18 TIME: 10:04 Assessment/Plan VTE Prophylaxis Risk score (from Nsg)>0 risk: 2 SCD applied (from Nsg): Yes Pharmacological prophylaxis: LMWH Lines/Catheters IV Catheter Type (from Nrsg): Peripheral IV Urinary Cath still in place: No Assessment/Plan Hospital Course SUBJECTIVE: Complains of some spasms in the left lower extremity and left upper extremity. Left eye diplopia resolved. Lock jaw better. Complains of poor appetite. OBJECTIVE: Physical Exam General: Adequately build 53 year-old male lying in bed in no apparent distress. HEENT: Normocephalic, atraumatic. Eyes: Anicteric sclerae, conjunctivae clear. ENT: Nasal septum midline, oral mucosa moist. Neck supple, no JVD noticed. Respiratory: Bilaterally clear breath sounds. No use of accessory muscles of respiration. No adventitious breath sounds. Cardiovascular: S1, S2 heard. Regular rate and rhythm. Abdomen: Soft, nontender, and nondistended. Bowel sounds positive in all 4 quadrants. Genitourinary: Deferred. Extremities: No cyanosis, no clubbing, no edema. Peripheral pulses palpable. Neurologic: Cranial nerves II through XII grossly intact. The patient is awake, alert, and oriented. Skin: Normal skin turgor. No skin rashes. Labs & Vitals per chart ASSESSMENT & PLAN 53-year-old female with no significant comorbidities other than remote history of migraine headache who presented to the emergency department with chief compl aint of generalized muscle spasms including trismus, who recently had a puncture wound from reported nail and was not adequately immunized for tetanus. 1. Presumed tetanus. -Status post evaluation by podiatry for reported puncture wound of the left foot and no obvious wound. -Continue Flagyl. -Status post tetanus immunoglobulin. -Continue [id number] muscle relaxants. -Continue magnesium sulfate. -Being followed by neurology and pulmonology. -Status post lumbar puncture on 10/08/2018. 2. Cephalgia. -Reported different headache when compared to her migraine episodes. -Brain MRI showing 1 to 2 mm focus of T2 hyper signal intensity involve the subcortical region of left temporal occipital region. -Being followed by neurology. 3. Fluids, electrolytes, and nutrition. -Mechanical soft diet. 4. DVT prophylaxis -Subcutaneous Lovenox (patient refusing). 5. Plan. -Continue current management. -Continue physical therapy. -Await clinical improvement. The patient was seen in collaboration with Dr. Murillo. Result Diagram: 10/12/18 0427 10/12/18 0427 Results 24hrs Laboratory Tests Test 10/12/18 04:27 10/12/18 04:50 White Blood Count 4.1 #L Red Blood Count 3.56 L Hemoglobin 12.0 Hematocrit 35.8 L Mean Corpuscular Volume 100.6 Mean Corpuscular Hemoglobin 33.7 H Mean Corpuscular Hemoglobin Concent 33.5 Red Cell Distribution Width 11.6 Platelet Count 185 Mean Platelet Volume 10.6 H Immature Granulocytes % 0.200 Neutrophils % 52.4 Lymphocytes % 29.1 Monocytes % 7.9 Eosinophils % 8.4 H Basophils % 2.0 Nucleated Red Blood Cells % 0.0 Immature Granulocytes # 0.010 Neutrophils # 2.1 Lymphocytes # 1.2 Monocytes # 0.3 Eosinophils # 0.3 Basophils # 0.1 Nucleated Red Blood Cells # 0.0 Sodium Level 140 Potassium Level 4.0 Chloride Level 107 Carbon Dioxide Level 28 Anion Gap 5 Blood Urea Nitrogen 14 Creatinine 0.74 Est Glomerular Filtrat Rate mL/min > 60 Glucose Level 95 Calcium Level 9.4 Phosphorus Level 4.1 Magnesium Level 2.5 Exam/Review of Systems Exam Vitals Vital Signs Date Temp Pulse Resp B/P (MAP) Pulse Ox O2 O2 Flow FiO2 Time Delivery Rate 10/12/18 97.5 52 18 91/44 (60) 99 Room Air 07:30 10/10/18 21 02:29 Intake and Output 10/11/18 10/11/18 10/12/18 1515:00 23:00 07:00 IntakeIntake Total 550 ml 150 ml 150 ml BalanceBalance 550 ml 150 ml 150 ml Results Results 24hrs Laboratory Tests Test 10/12/18 04:27 10/12/18 04:50 White Blood Count 4.1 #L Red Blood Count 3.56 L Hemoglobin 12.0 Hematocrit 35.8 L Mean Corpuscular Volume 100.6 Mean Corpuscular Hemoglobin 33.7 H Mean Corpuscular Hemoglobin Concent 33.5 Red Cell Distribution Width 11.6 Platelet Count 185 Mean Platelet Volume 10.6 H Immature Granulocytes % 0.200 Neutrophils % 52.4 Lymphocytes % 29.1 Monocytes % 7.9 Eosinophils % 8.4 H Basophils % 2.0 Nucleated Red Blood Cells % 0.0 Immature Granulocytes # 0.010 Neutrophils # 2.1 Lymphocytes # 1.2 Monocytes # 0.3 Eosinophils # 0.3 Basophils # 0.1 Nucleated Red Blood Cells # 0.0 Sodium Level 140 Potassium Level 4.0 Chloride Level 107 Carbon Dioxide Level 28 Anion Gap 5 Blood Urea Nitrogen 14 Creatinine 0.74 Est Glomerular Filtrat Rate mL/min > 60 Glucose Level 95 Calcium Level 9.4 Phosphorus Level 4.1 Magnesium Level 2.5 Medications Medication Current Medications Ondansetron HCl (Zofran Inj) 4 mg Q6H PRN IV NAUSEA AND/OR VOMITING Last administered on 10/11/18 21:16; Admin Dose 4 MG; Start 10/03/18 at 22:00 Albuterol/ Ipratropium (Duoneb) 3 ml Q2H RESP THERAPY PRN NEB SHORTNESS OF BREATH; Start 10/03/18 at 22:00 Acetaminophen (Tylenol Supp) 650 mg Q4H PRN [place] PAIN LEVEL 1-3 OR FEVER; Start 10/03/18 at 22:00 Morphine Sulfate (morphine) 3 mg Q4H PRN IV SEVERE PAIN LEVEL 7-10 Last administered on 10/11/18 05:56; Admin Dose 3 MG; Start 10/03/18 at 23:00 Cyclobenzaprine HCl (Flexeril) 10 mg TID PRN PO MUSCLE SPASMS Last administered on 10/11/18at 14:00; Admin Dose 10 MG; Start 10/03/18 at 23:30 Metronidazole 100 ml @ 100 mls/hr Q6 IVPB Last administered on 10/12/18at 06:29; Admin Dose 100 MLS/HR; Start 10/04/18 at 05:30 Enoxaparin Sodium (Lovenox) 40 mg DAILY SC Last administered on 10/11/18 09:12; Admin Dose 40 MG; Start 10/06/18 at 09:00 Diazepam (Valium) 4 mg Q4H PRN IV muscle spasm Last administered on 10/08/18at 15:56; Admin Dose 4 MG; Start 10/04/18 at 23:00 Magnesium Sulfate 50 ml @ 25 mls/hr TID IVPB Last administered on 10/11/18at 23:04; Admin Dose 25 MLS/HR; Start 10/05/18 at 21:00 Diazepam (Valium) 5 mg Q3 PO Last administered on 10/12/18 09:08; Admin Dose 5 MG; Start 10/06/18 at 18:00 Famotidine (Pepcid) 20 mg DAILY PO Last administered on 10/12/18at 09:08; Admin Dose 20 MG; Start 10/08/18 at 09:00 Polyethylene Glycol (Miralax) 17 gm BID PO Last administered on 10/11/18at 09:00; Admin Dose 17 GM; Start 10/09/18 at 10:00 Docusate Sodium (Colace) 100 mg BID PO Last administered on 10/11/18at 20:55; Admin Dose 100 MG; Start 10/09/18 at 21:00 Bisacodyl (Dulcolax) 10 mg DAILY PRN PO CONSTIPATION; Start 10/09/18 at 10:00 Acetaminophen (Tylenol Tab) 650 mg Q4H PRN PO MILD PAIN(1-3)OR ELEVATED TEMP Last administered on 10/09/18at 15:05; Admin Dose 650 MG; Start 10/09/18 at 11:30 Ibuprofen (Motrin) 400 mg Q4 PRN PO MILD PAIN(1-3) OR TEMP>38C Last administered on 10/12/18at 00:37; Admin Dose 400 MG; Start 10/11/18 at 17:30 WILLIAM ANDRE NP October 12, 2018 10:06
[2018-10-12] MEDS: MAGNESIUM SULFATE 2 GM/50 ML 50 ML IVPB SCH ×3 (10:37→22:11)
--- NOTE | 2018-10-12 13:53 | CONS ---
Assessment/Plan Assessment/Plan Hospital Course (Demo Recall) All noted, no acute events overnight, awake, c/o LLE spasms, no fevers All cultures negative Antimicrobials: IV Flagyl Physical examination: Well-nourished well-developed middle-aged woman who is alert in no distress. Head atraumatic normocephalic sclera nonicteric. Neck is supple, trachea midline, no nuchal rigidity. Chest rise symmetrical breath sounds clear bilaterally. Heart: S1-S2. Abdomen soft bowel sounds present. Extremities without cyanosis edema. Neurological: Bilateral upper and lower extremities with equal strength, no focal neurologic deficits. Assessment: 1. Presumed tetanus infection, status post tetanus antitoxin. 2. Ongoing weakness with lower extremities tingling 3. Trismus Plan: Remains stable, continue Flagyl to complete 2 weeks, await for clinical improvement Consultation Date/Type/Reason Admit Date/Time October 03, 2018 at 20:47 Initial Consult Date Type of Consult id Requesting Provider: LONNY PFEIFFER MD Date/Time of Note DATE: 10/12/18 TIME: 13:52 Exam/Review of Systems Exam Vitals Vital Signs Date Temp Pulse Resp B/P (MAP) Pulse Ox O2 O2 Flow FiO2 Time Delivery Rate 10/12/18 97.5 52 18 91/44 (60) 99 Room Air 07:30 10/10/18 21 02:29 Intake and Output 10/11/18 10/11/18 10/12/18 1515:00 23:00 07:00 IntakeIntake Total 550 ml 150 ml 150 ml BalanceBalance 550 ml 150 ml 150 ml Results Result Diagram: 10/12/18 0427 10/12/18 0427 Results 24hrs Laboratory Tests Test 10/12/18 04:27 10/12/18 04:50 White Blood Count 4.1 #L Red Blood Count 3.56 L Hemoglobin 12.0 Hematocrit 35.8 L Mean Corpuscular Volume 100.6 Mean Corpuscular Hemoglobin 33.7 H Mean Corpuscular Hemoglobin Concent 33.5 Red Cell Distribution Width 11.6 Platelet Count 185 Mean Platelet Volume 10.6 H Immature Granulocytes % 0.200 Neutrophils % 52.4 Lymphocytes % 29.1 Monocytes % 7.9 Eosinophils % 8.4 H Basophils % 2.0 Nucleated Red Blood Cells % 0.0 Immature Granulocytes # 0.010 Neutrophils # 2.1 Lymphocytes # 1.2 Monocytes # 0.3 Eosinophils # 0.3 Basophils # 0.1 Nucleated Red Blood Cells # 0.0 Sodium Level 140 Potassium Level 4.0 Chloride Level 107 Carbon Dioxide Level 28 Anion Gap 5 Blood Urea Nitrogen 14 Creatinine 0.74 Est Glomerular Filtrat Rate mL/min > 60 Glucose Level 95 Calcium Level 9.4 Phosphorus Level 4.1 Magnesium Level 2.5 Medications Medication Current Medications Ondansetron HCl (Zofran Inj) 4 mg Q6H PRN IV NAUSEA AND/OR VOMITING Last administered on 10/11/18 21:16; Admin Dose 4 MG; Start 10/03/18 at 22:00 Albuterol/ Ipratropium (Duoneb) 3 ml Q2H RESP THERAPY PRN NEB SHORTNESS OF BREATH; Start 10/03/18 at 22:00 Acetaminophen (Tylenol Supp) 650 mg Q4H PRN [place] PAIN LEVEL 1-3 OR FEVER; Start 10/03/18 at 22:00 Morphine Sulfate (morphine) 3 mg Q4H PRN IV SEVERE PAIN LEVEL 7-10 Last administered on 10/11/18 05:56; Admin Dose 3 MG; Start 10/03/18 at 23:00 Cyclobenzaprine HCl (Flexeril) 10 mg TID PRN PO MUSCLE SPASMS Last administered on 10/11/18 14:00; Admin Dose 10 MG; Start 10/03/18 at 23:30 Metronidazole 100 ml @ 100 mls/hr Q6 IVPB Last administered on 10/12/18 11:30; Admin Dose 100 MLS/HR; Start 10/04/18 at 05:30 Enoxaparin Sodium (Lovenox) 40 mg DAILY SC Last administered on 10/11/18 09:1 2; Admin Dose 40 MG; Start 10/06/18 at 09:00 Diazepam (Valium) 4 mg Q4H PRN IV muscle spasm Last administered on 10/08/18 15:56; Admin Dose 4 MG; Start 10/04/18 at 23:00 Magnesium Sulfate 50 ml @ 25 mls/hr TID IVPB Last administered on 10/12/18 10:37; Admin Dose 25 MLS/HR; Start 10/05/18 at 21:00 Diazepam (Valium) 5 mg Q3 PO Last administered on 10/12/18 11:30; Admin Dose 5 MG; Start 10/06/18 at 18:00 Famotidine (Pepcid) 20 mg DAILY PO Last administered on 10/12/18 09:08; Admin Dose 20 MG; Start 10/08/18 at 09:00 Polyethylene Glycol (Miralax) 17 gm BID PO Last administered on 10/11/18 09:00; Admin Dose 17 GM; Start 10/09/18 at 10:00 Docusate Sodium (Colace) 100 mg BID PO Last administered on 10/11/18at 20:55; Admin Dose 100 MG; Start 10/09/18 at 21:00 Bisacodyl (Dulcolax) 10 mg DAILY PRN PO CONSTIPATION; Start 10/09/18 at 10:00 Acetaminophen (Tylenol Tab) 650 mg Q4H PRN PO MILD PAIN(1-3)OR ELEVATED TEMP Last administered on 10/09/18at 15:05; Admin Dose 650 MG; Start 10/09/18 at 11:30 Ibuprofen (Motrin) 400 mg Q4 PRN PO MILD PAIN(1-3) OR TEMP>38C Last administered on 10/12/18 11:30; Admin Dose 400 MG; Start 10/11/18 at 17:30 ANA VEGA NP October 12, 2018 13:53
[2018-10-12 14:00] VITALS: BP 98/56; PULSE 58; RESP 18
[2018-10-12 20:26] VITALS: BP 87/52; PULSE 68; RESP 20
[2018-10-12 20:28] VITALS: BP 91/50; PULSE 52; RESP 18
[2018-10-12] MEDS ORDERED: SOD CHLORIDE 0.9% 1,000 ML IV ONE (21:00)
[2018-10-12] MEDS: metroNIDAZOLE 500 MG TAB PO SCH (21:34)
[2018-10-13 00:11] VITALS: BP 94/51; PULSE 50; RESP 20
[2018-10-13 00:17] VITALS: PULSE 56
[2018-10-13] MEDS ORDERED: SOD CHLORIDE 0.9% 500 ML IV ONE (00:30)
[2018-10-13] MEDS: DIAZEPAM 5 MG TAB PO SCH ×7 (00:32→23:35)
[2018-10-13] MEDS: metroNIDAZOLE 500 MG TAB PO SCH ×3 (05:56→22:12)
[2018-10-13] MEDS: DOCUSATE SODIUM 100 MG CAP PO SCH ×2 (09:00→20:52)
[2018-10-13] MEDS: POLYETHYLENE GLYCOL 17 GM PACKET PO SCH ×2 (09:00→20:53)
[2018-10-13] MEDS: MAGNESIUM SULFATE 2 GM/50 ML 50 ML IVPB SCH ×3 (09:13→20:53)
[2018-10-13] MEDS: FAMOTIDINE 20 MG TAB PO SCH (09:13)
[2018-10-13] MEDS: ENOXAPARIN 40 MG/0.4 ML SYG SC SCH (09:16)
[2018-10-13 09:17] VITALS: BP 103/51; PULSE 62; RESP 19
--- NOTE | 2018-10-13 09:27 | PN ---
Date/Time of Note Date/Time of Note DATE: 10/13/18 TIME: 09:27 Assessment/Plan VTE Prophylaxis Risk score (from Nsg)>0 risk: 1 SCD applied (from Nsg): Yes Pharmacological prophylaxis: LMWH Lines/Catheters IV Catheter Type (from Nrsg): Saline Lock Urinary Cath still in place: No Assessment/Plan Hospital Course SUBJECTIVE: Complains of some spasms in the left lower extremity and left upper extremity. Left eye diplopia resolved. Lock jaw better. Complains of poor appetite. OBJECTIVE: Physical Exam General: Adequately build 53 year-old male lying in bed in no apparent distress. HEENT: Normocephalic, atraumatic. Eyes: Anicteric sclerae, conjunctivae clear. ENT: Nasal septum midline, oral mucosa moist. Neck supple, no JVD noticed. Respiratory: Bilaterally clear breath sounds. No use of accessory muscles of respiration. No adventitious breath sounds. Cardiovascular: S1, S2 heard. Regular rate and rhythm. Abdomen: Soft, nontender, and nondistended. Bowel sounds positive in all 4 quadrants. Genitourinary: Deferred. Extremities: No cyanosis, no clubbing, no edema. Peripheral pulses palpable. Neurologic: Cranial nerves II through XII grossly intact. The patient is awake, alert, and oriented. Skin: Normal skin turgor. No skin rashes. Labs & Vitals per chart ASSESSMENT & PLAN 53-year-old female with no significant comorbidities other than remote history of migraine headache who presented to the emergency department with chief complaint of generalized muscle spasms including trismus, who recently had a puncture wound from reported nail and was not adequately immunized for tetanus. 1. Presumed tetanus. -Status post evaluation by podiatry for reported puncture wound of the left foot and no obvious wound. -Continue Flagyl. -Status post tetanus immunoglobulin. -Continue [id number] muscle relaxants. -Continue magnesium sulfate. -Being followed by neurology and pulmonology. -Status post lumbar puncture on 10/08/2018. 2. Cephalgia. -Reported different headache when compared to her migraine episodes. -Brain MRI showing 1 to 2 mm focus of T2 hyper signal intensity involve the subcortical region of left temporal occipital region. -Being followed by neurology. 3. Fluids, electrolytes, and nutrition. -Mechanical soft diet. 4. DVT prophylaxis -Subcutaneous Lovenox (patient refusing). 5. Plan. -Continue current management. -Taper down Valium. -Continue physical therapy. -Await clinical improvement. The patient was seen in collaboration with Dr. Murillo. Result Diagram: 10/13/18 0434 10/13/18 0434 Results 24hrs Laboratory Tests Test 10/13/18 04:34 White Blood Count 4.1 L Red Blood Count 3.44 L Hemoglobin 11.7 L Hematocrit 34.8 L Mean Corpuscular Volume 101.2 H Mean Corpuscular Hemoglobin 34.0 H Mean Corpuscular Hemoglobin Concent 33.6 Red Cell Distribution Width 11.8 Platelet Count 179 Mean Platelet Volume 10.4 Immature Granulocytes % 0.200 Neutrophils % 50.7 Lymphocytes % 33.7 Monocytes % 7.0 Eosinophils % 6.5 Basophils % 1.9 Nucleated Red Blood Cells % 0.0 Immature Granulocytes # 0.010 Neutrophils # 2.1 Lymphocytes # 1.4 Monocytes # 0.3 Eosinophils # 0.3 Basophils # 0.1 Nucleated Red Blood Cells # 0.0 Sodium Level 141 Potassium Level 4.2 Chloride Level 111 H Carbon Dioxide Level 27 Anion Gap 3 L Blood Urea Nitrogen 12 Creatinine 0.73 Est Glomerular Filtrat Rate mL/min > 60 Glucose Level 92 Calcium Level 8.9 Phosphorus Level 3.5 Magnesium Level 2.2 Exam/Review of Systems Exam Vitals Vital Signs Date Temp Pulse Resp B/P (MAP) Pulse Ox O2 O2 Flow FiO2 Time Delivery Rate 10/13/18 97.4 62 19 103/51 96 Room Air 09:17 (68) 10/10/18 21 02:29 Intake and Output 10/12/18 10/12/18 10/13/18 1515:00 23:00 07:00 IntakeIntake Total 350 ml 1450 ml 830 ml BalanceBalance 350 ml 1450 ml 830 ml Results Results 24hrs Laboratory Tests Test 10/13/18 04:34 White Blood Count 4.1 L Red Blood Count 3.44 L Hemoglobin 11.7 L Hematocrit 34.8 L Mean Corpuscular Volume 101.2 H Mean Corpuscular Hemoglobin 34.0 H Mean Corpuscular Hemoglobin Concent 33.6 Red Cell Distribution Width 11.8 Platelet Count 179 Mean Platelet Volume 10.4 Immature Granulocytes % 0.200 Neutrophils % 50.7 Lymphocytes % 33.7 Monocytes % 7.0 Eosinophils % 6.5 Basophils % 1.9 Nucleated Red Blood Cells % 0.0 Immature Granulocytes # 0.010 Neutrophils # 2.1 Lymphocytes # 1.4 Monocytes # 0.3 Eosinophils # 0.3 Basophils # 0.1 Nucleated Red Blood Cells # 0.0 Sodium Level 141 Potassium Level 4.2 Chloride Level 111 H Carbon Dioxide Level 27 Anion Gap 3 L Blood Urea Nitrogen 12 Creatinine 0.73 Est Glomerular Filtrat Rate mL/min > 60 Glucose Level 92 Calcium Level 8.9 Phosphorus Level 3.5 Magnesium Level 2.2 Medications Medication Current Medications Ondansetron HCl (Zofran Inj) 4 mg Q6H PRN IV NAUSEA AND/OR VOMITING Last administered on 10/11/18 21:16; Admin Dose 4 MG; Start 10/03/18 at 22:00 Albuterol/ Ipratropium (Duoneb) 3 ml Q2H RESP THERAPY PRN NEB SHORTNESS OF BREATH; Start 10/03/18 at 22:00 Acetaminophen (Tylenol Supp) 650 mg Q4H PRN [place] PAIN LEVEL 1-3 OR FEVER; Start 10/03/18 at 22:00 Morphine Sulfate (morphine) 3 mg Q4H PRN IV SEVERE PAIN LEVEL 7-10 Last administered on 10/11/18 05:56; Admin Dose 3 MG; Start 10/03/18 at 23:00 Cyclobenzaprine HCl (Flexeril) 10 mg TID PRN PO MUSCLE SPASMS Last administered on 10/11/18 14:00; Admin Dose 10 MG; Start 10/03/18 at 23:30 Enoxaparin Sodium (Lovenox) 40 mg DAILY SC Last administered on 10/13/18 09:16; Admin Dose 40 MG; Start 10/06/18 at 09:00 Diazepam (Valium) 4 mg Q4H PRN IV muscle spasm Last administered on 10/08/18 15:56; Admin Dose 4 MG; Start 10/04/18 at 23:00 Magnesium Sulfate 50 ml @ 25 mls/hr TID IVPB Last administered on 10/13/18 09:13; Admin Dose 25 MLS/HR; Start 10/05/18 at 21:00 Diazepam (Valium) 5 mg Q3 PO Last administered on 10/13/18 09:13; Admin Dose 5 MG; Start 10/06/18 at 18:00 Famotidine (Pepcid) 20 mg DAILY PO Last administered on 10/13/18 09:13; Admin Dose 20 MG; Start 10/08/18 at 09:00 Polyethylene Glycol (Miralax) 17 gm BID PO Last administered on 10/11/18 09:00; Admin Dose 17 GM; Start 10/09/18 at 10:00 Docusate Sodium (Colace) 100 mg BID PO Last administered on 10/11/18at 20:55; Admin Dose 100 MG; Start 10/09/18 at 21:00 Bisacodyl (Dulcolax) 10 mg DAILY PRN PO CONSTIPATION; Start 10/09/18 at 10:00 Acetaminophen (Tylenol Tab) 650 mg Q4H PRN PO MILD PAIN(1-3)OR ELEVATED TEMP Last administered on 10/09/18at 15:05; Admin Dose 650 MG; Start 10/09/18 at 11:30 Ibuprofen (Motrin) 400 mg Q4 PRN PO MILD PAIN(1-3) OR TEMP>38C Last administered on 10/12/18at 11:30; Admin Dose 400 MG; Start 10/11/18 at 17:30 Metronidazole (Flagyl) 500 mg Q8 PO Last administered on 10/13/18 05:56; Admin Dose 500 MG; Start 10/12/18 at 22:00 WILLIAM ANDRE NP October 13, 2018 09:27
--- NOTE | 2018-10-13 12:36 | CONS ---
Assessment/Plan Assessment/Plan Hospital Course (Demo Recall) Alert, feels better All cultures negative Antimicrobials: Flagyl Physical examination: Well-nourished well-developed middle-aged woman who is alert in no distress. Head atraumatic normocephalic sclera nonicteric. Neck is supple, trachea midline, no nuchal rigidity. Chest rise symmetrical breath sounds clear bilaterally. Heart: S1-S2. Abdomen soft bowel sounds present. Extremities without cyanosis edema. Neurological: Bilateral upper and lower extremities with equal strength, no focal neurologic deficits. Assessment: 1. Presumed tetanus infection, status post tetanus antitoxin. 2. Ongoing weakness with lower extremities tingling 3. Trismus Plan: Slowly improving, still with ongoing headaches, continue Flagyl for 4 more days, continue PT f/u neurology rec-s Consultation Date/Type/Reason Admit Date/Time October 03, 2018 at 20:47 Initial Consult Date Type of Consult id Requesting Provider: LONNY PFEIFFER MD Date/Time of Note DATE: 10/13/18 TIME: 12:34 Exam/Review of Systems Exam Vitals Vital Signs Date Temp Pulse Resp B/P (MAP) Pulse Ox O2 O2 Flow FiO2 Time Delivery Rate 10/13/18 97.4 62 19 103/51 96 Room Air 09:17 (68) 10/10/18 21 02:29 Intake and Output 10/12/18 10/12/18 10/13/18 1515:00 23:00 07:00 IntakeIntake Total 350 ml 1450 ml 830 ml BalanceBalance 350 ml 1450 ml 830 ml Results Result Diagram: 10/13/18 0434 10/13/18 0434 Results 24hrs Laboratory Tests Test 10/13/18 04:34 White Blood Count 4.1 L Red Blood Count 3.44 L Hemoglobin 11.7 L Hematocrit 34.8 L Mean Corpuscular Volume 101.2 H Mean Corpuscular Hemoglobin 34.0 H Mean Corpuscular Hemoglobin Concent 33.6 Red Cell Distribution Width 11.8 Platelet Count 179 Mean Platelet Volume 10.4 Immature Granulocytes % 0.200 Neutrophils % 50.7 Lymphocytes % 33.7 Monocytes % 7.0 Eosinophils % 6.5 Basophils % 1.9 Nucleated Red Blood Cells % 0.0 Immature Granulocytes # 0.010 Neutrophils # 2.1 Lymphocytes # 1.4 Monocytes # 0.3 Eosinophils # 0.3 Basophils # 0.1 Nucleated Red Blood Cells # 0.0 Sodium Level 141 Potassium Level 4.2 Chloride Level 111 H Carbon Dioxide Level 27 Anion Gap 3 L Blood Urea Nitrogen 12 Creatinine 0.73 Est Glomerular Filtrat Rate mL/min > 60 Glucose Level 92 Calcium Level 8.9 Phosphorus Level 3.5 Magnesium Level 2.2 Medications Medication Current Medications Ondansetron HCl (Zofran Inj) 4 mg Q6H PRN IV NAUSEA AND/OR VOMITING Last administered on 10/11/18 21:16; Admin Dose 4 MG; Start 10/03/18 at 22:00 Albuterol/ Ipratropium (Duoneb) 3 ml Q2H RESP THERAPY PRN NEB SHORTNESS OF BREATH; Start 10/03/18 at 22:00 Acetaminophen (Tylenol Supp) 650 mg Q4H PRN [place] PAIN LEVEL 1-3 OR FEVER; Start 10/03/18 at 22:00 Morphine Sulfate (morphine) 3 mg Q4H PRN IV SEVERE PAIN LEVEL 7-10 Last administered on 10/11/18at 05:56; Admin Dose 3 MG; Start 10/03/18 at 23:00 Cyclobenzaprine HCl (Flexeril) 10 mg TID PRN PO MUSCLE SPASMS Last administered on 10/11/18 14:00; Admin Dose 10 MG; Start 10/03/18 at 23:30 Enoxaparin Sodium (Lovenox) 40 mg DAILY SC Last administered on 10/13/18 09:16; Admin Dose 40 MG; Start 10/06/18 at 09:00 Diazepam (Valium) 4 mg Q4H PRN IV muscle spasm Last administered on 10/08/18at 15:56; Admin Dose 4 MG; Start 10/04/18 at 23:00 Magnesium Sulfate 50 ml @ 25 mls/hr TID IVPB Last administered on 10/13/18 12:25; Admin Dose 25 MLS/HR; Start 10/05/18 at 21:00 Famotidine (Pepcid) 20 mg DAILY PO Last administered on 10/13/18 09:13; Admin Dose 20 MG; Start 10/08/18 at 09:00 Polyethylene Glycol (Miralax) 17 gm BID PO Last administered on 10/11/18 09:00; Admin Dose 17 GM; Start 10/09/18 at 10:00 Docusate Sodium (Colace) 100 mg BID PO Last administered on 10/11/18at 20:55; Admin Dose 100 MG; Start 10/09/18 at 21:00 Bisacodyl (Dulcolax) 10 mg DAILY PRN PO CONSTIPATION; Start 10/09/18 at 10:00 Acetaminophen (Tylenol Tab) 650 mg Q4H PRN PO MILD PAIN(1-3)OR ELEVATED TEMP Last administered on 10/09/18at 15:05; Admin Dose 650 MG; Start 10/09/18 at 11:30 Ibuprofen (Motrin) 400 mg Q4 PRN PO MILD PAIN(1-3) OR TEMP>38C Last administered on 10/12/18at 11:30; Admin Dose 400 MG; Start 10/11/18 at 17:30 Metronidazole (Flagyl) 500 mg Q8 PO Last administered on 10/13/18at 05:56; Admin Dose 500 MG; Start 10/12/18 at 22:00 Diazepam (Valium) 5 mg Q6 PO ; Start 10/13/18 at 18:00 ANA VEGA NP October 13, 2018 12:36
[2018-10-13 14:43] VITALS: BP 98/51; RESP 19
[2018-10-13] MEDS: IBUPROFEN 400 MG TAB PO PRN (14:57)
[2018-10-13 19:35] VITALS: BP 109/53; PULSE 52; RESP 18
[2018-10-13] MEDS: ACETAMINOPHEN 325 MG TAB PO PRN (21:00)
[2018-10-14] VITALS (7 sets, daily range): BP systolic 87–131; BP diastolic 47–61; PULSE 52–70; RESP 17–20
[2018-10-14] MEDS: metroNIDAZOLE 500 MG TAB PO SCH ×3 (05:30→22:52)
[2018-10-14] MEDS: DIAZEPAM 5 MG TAB PO SCH ×4 (05:30→22:52)
[2018-10-14] MEDS: POLYETHYLENE GLYCOL 17 GM PACKET PO SCH ×2 (09:00→21:00)
--- NOTE | 2018-10-14 09:22 | PN ---
Date/Time of Note Date/Time of Note DATE: 10/14/18 TIME: 09:22 Assessment/Plan VTE Prophylaxis Risk score (from Ns)>0 risk: 1 SCD applied (from Nsg): Yes Pharmacological prophylaxis: LMWH Lines/Catheters IV Catheter Type (from Nrsg): Saline Lock Urinary Cath still in place: No Assessment/Plan Hospital Course SUBJECTIVE: Complains of some spasms in the left lower extremity and left upper extremity. Left eye diplopia resolved. Lock jaw better. OBJECTIVE: Physical Exam General: Adequately build 53 year-old male lying in bed in no apparent distress. HEENT: Normocephalic, atraumatic. Eyes: Anicteric sclerae, conjunctivae clear. ENT: Nasal septum midline, oral mucosa moist. Neck supple, no JVD noticed. Respiratory: Bilaterally clear breath sounds. No use of accessory muscles of respiration. No adventitious breath sounds. Cardiovascular: S1, S2 heard. Regular rate and rhythm. Abdomen: Soft, nontender, and nondistended. Bowel sounds positive in all 4 qu adrants. Genitourinary: Deferred. Extremities: No cyanosis, no clubbing, no edema. Peripheral pulses palpable. Neurologic: Cranial nerves II through XII grossly intact. The patient is awake, alert, and oriented. Skin: Normal skin turgor. No skin rashes. Labs & Vitals per chart ASSESSMENT & PLAN 53-year-old female with no significant comorbidities other than remote history of migraine headache who presented to the emergency department with chief complaint of generalized muscle spasms including trismus, who recently had a puncture wound from reported nail and was not adequately immunized for tetanus. 1. Presumed tetanus. -Status post evaluation by podiatry for reported puncture wound of the left foot and no obvious wound. -Continue Flagyl. -Status post tetanus immunoglobulin. -Continue [id number] muscle relaxants. -Continue magnesium sulfate. -Being followed by neurology and pulmonology. -Status post lumbar puncture on 10/08/2018. 2. Cephalgia. -Reported different headache when compared to her migraine episodes. -Brain MRI showing 1 to 2 mm focus of T2 hyper signal intensity involve the subcortical region of left temporal occipital region. -Being followed by neurology. 3. Fluids, electrolytes, and nutrition. -Mechanical soft diet. 4. DVT prophylaxis -Subcutaneous Lovenox (patient refusing). 5. Plan. -Continue current management. -Taper down Valium. -Continue physical therapy. -Await clinical improvement. The patient was seen in collaboration with Dr. Murillo. Result Diagram: 10/13/18 0434 10/13/18 0434 Exam/Review of Systems Exam Vitals Vital Signs Date Temp Pulse Resp B/P (MAP) Pulse Ox O2 O2 Flow FiO2 Time Delivery Rate 10/14/18 98.3 53 18 102/54 99 Room Air 08:34 (70) Intake and Output 10/13/18 10/13/18 10/14/18 1515:00 23:00 07:00 IntakeIntake Total 960 ml 780 ml 530 ml BalanceBalance 960 ml 780 ml 530 ml Medications Medication Current Medications Ondansetron HCl (Zofran Inj) 4 mg Q6H PRN IV NAUSEA AND/OR VOMITING Last administered on 10/11/18at 21:16; Admin Dose 4 MG; Start 10/03/18 at 22:00 Albuterol/ Ipratropium (Duoneb) 3 ml Q2H RESP THERAPY PRN NEB SHORTNESS OF ROSA ATH; Start 10/03/18 at 22:00 Acetaminophen (Tylenol Supp) 650 mg Q4H PRN [place] PAIN LEVEL 1-3 OR FEVER; Start 10/03/18 at 22:00 Morphine Sulfate (morphine) 3 mg Q4H PRN IV SEVERE PAIN LEVEL 7-10 Last adm inistered on 10/11/18at 05:56; Admin Dose 3 MG; Start 10/03/18 at 23:00 Cyclobenzaprine HCl (Flexeril) 10 mg TID PRN PO MUSCLE SPASMS Last administered on 10/11/18at 14:00; Admin Dose 10 MG; Start 10/03/18 at 23:30 Enoxaparin Sodium (Lovenox) 40 mg DAILY SC Last administered on 10/13/18at 09:16; Admin Dose 40 MG; Start 10/06/18 at 09:00 Diazepam (Valium) 4 mg Q4H PRN IV muscle spasm Last administered on 10/08/18at 15:56; Admin Dose 4 MG; Start 10/04/18 at 23:00 Magnesium Sulfate 50 ml @ 25 mls/hr TID IVPB Last administered on 10/13/18at 20:53; Admin Dose 25 MLS/HR; Start 10/05/18 at 21:00 Famotidine (Pepcid) 20 mg DAILY PO Last administered on 10/13/18 09:13; Admin Dose 20 MG; Start 10/08/18 at 09:00 Polyethylene Glycol (Miralax) 17 gm BID PO Last administered on 10/11/18 09:00; Admin Dose 17 GM; Start 10/09/18 at 10:00 Docusate Sodium (Colace) 100 mg BID PO Last administered on 10/13/18at 20:52; Admin Dose 100 MG; Start 10/09/18 at 21:00 Bisacodyl (Dulcolax) 10 mg DAILY PRN PO CONSTIPATION; Start 10/09/18 at 10:00 Acetaminophen (Tylenol Tab) 650 mg Q4H PRN PO MILD PAIN(1-3)OR ELEVATED TEMP Last administered on 10/13/18 21:00; Admin Dose 650 MG; Start 10/09/18 at 11:30 Ibuprofen (Motrin) 400 mg Q4 PRN PO MILD PAIN(1-3) OR TEMP>38C Last administered on 10/13/18at 14:57; Admin Dose 400 MG; Start 10/11/18 at 17:30 Metronidazole (Flagyl) 500 mg Q8 PO Last administered on 10/14/18 05:30; Admin Dose 500 MG; Start 10/12/18 at 22:00 Diazepam (Valium) 5 mg Q6 PO Last administered on 10/14/18 05:30; Admin Dose 5 MG; Start 10/13/18 at 18:00 WILLIAM ANDRE NP October 14, 2018 09:22
[2018-10-14] MEDS: CYCLOBENZAPRINE 10 MG TAB PO PRN (09:44)
[2018-10-14] MEDS: MAGNESIUM SULFATE 2 GM/50 ML 50 ML IVPB SCH ×3 (09:44→23:53)
[2018-10-14] MEDS: DOCUSATE SODIUM 100 MG CAP PO SCH ×2 (09:44→21:00)
[2018-10-14] MEDS: FAMOTIDINE 20 MG TAB PO SCH (09:45)
[2018-10-14] MEDS: ENOXAPARIN 40 MG/0.4 ML SYG SC SCH (09:48)
[2018-10-14] MEDS: IBUPROFEN 400 MG TAB PO PRN (09:50)
--- NOTE | 2018-10-14 13:05 | CONS ---
Consultation Date/Type/Reason Admit Date/Time October 03, 2018 at 20:47 Initial Consult Date Type of Consult SUBJECTIVE: Pt is awake,alert, gradually improving. NO acute events over night. VS: stable T: 98.3 LABS: Reviewed. MICROBIOLOGY: All cultures negative Antimicrobials: Flagyl Physical examination: GEN: Well-nourished well-developed middle-aged woman, who is alert in no distress. HENT: Head atraumatic normocephalic sclera nonicteric. Neck is supple, trachea midline, no nuchal rigidity. PULM: Chest rise symmetrical breath sounds clear bilaterally. Heart: S1-S2. Abdomen soft bowel sounds present. Extremities without cyanosis edema. Neurological: Bilateral upper and lower extremities with equal strength, no focal neurologic deficits. Assessment: 1. Presumed tetanus infection, status post tetanus antitoxin. 2. Ongoing weakness with lower extremities tingling 3. Trismus Plan: Pt is gradually improving. Continue Flagyl for 3 more days. PT and neurology rec-s. Requesting Provider: LONNY PFEIFFER MD Date/Time of Note DATE: 10/14/18 TIME: 13:02 Exam/Review of Systems Exam Vitals Vital Signs Date Temp Pulse Resp B/P (MAP) Pulse Ox O2 O2 Flow FiO2 Time Delivery Rate 10/14/18 98.3 53 18 102/54 99 Room Air 08:34 (70) Intake and Output 10/13/18 10/13/18 10/14/18 1515:00 23:00 07:00 IntakeIntake Total 960 ml 780 ml 530 ml BalanceBalance 960 ml 780 ml 530 ml Results Result Diagram: 10/13/18 0434 10/13/18 0434 Medications Medication Current Medications Ondansetron HCl (Zofran Inj) 4 mg Q6H PRN IV NAUSEA AND/OR VOMITING Last administered on 10/11/18at 21:16; Admin Dose 4 MG; Start 10/03/18 at 22:00 Albuterol/ Ipratropium (Duoneb) 3 ml Q2H RESP THERAPY PRN NEB SHORTNESS OF BREATH; Start 10/03/18 at 22:00 Acetaminophen (Tylenol Supp) 650 mg Q4H PRN [place] PAIN LEVEL 1-3 OR FEVER; Start 10/03/18 at 22:00 Morphine Sulfate (morphine) 3 mg Q4H PRN IV SEVERE PAIN LEVEL 7-10 Last administered on 10/11/18 05:56; Admin Dose 3 MG; Start 10/03/18 at 23:00 Cyclobenzaprine HCl (Flexeril) 10 mg TID PRN PO MUSCLE SPASMS Last administered on 10/14/18 09:44; Admin Dose 10 MG; Start 10/03/18 at 23:30 Enoxaparin Sodium (Lovenox) 40 mg DAILY SC Last administered on 10/14/18 09:48; Admin Dose 40 MG; Start 10/06/18 at 09:00 Diazepam (Valium) 4 mg Q4H PRN IV muscle spasm Last administered on 10/08/18 15:56; Admin Dose 4 MG; Start 10/04/18 at 23:00 Magnesium Sulfate 50 ml @ 25 mls/hr TID IVPB Last administered on 10/14/18 09:44; Admin Dose 25 MLS/HR; Start 10/05/18 at 21:00 Famotidine (Pepcid) 20 mg DAILY PO Last administered on 10/14/18 09:45; Admin Dose 20 MG; Start 10/08/18 at 09:00 Polyethylene Glycol (Miralax) 17 gm BID PO Last administered on 10/11/18 09:00; Admin Dose 17 GM; Start 10/09/18 at 10:00 Docusate Sodium (Colace) 100 mg BID PO Last administered on 10/14/18 09:44; Admin Dose 100 MG; Start 10/09/18 at 21:00 Bisacodyl (Dulcolax) 10 mg DAILY PRN PO CONSTIPATION; Start 10/09/18 at 10:00 Acetaminophen (Tylenol Tab) 650 mg Q4H PRN PO MILD PAIN(1-3)OR ELEVATED TEMP Last administered on 10/13/18 21:00; Admin Dose 650 MG; Start 10/09/18 at 11:30 Ibuprofen (Motrin) 400 mg Q4 PRN PO MILD PAIN(1-3) OR TEMP>38C Last administered on 10/14/18 09:50; Admin Dose 400 MG; Start 10/11/18 at 17:30 Metronidazole (Flagyl) 500 mg Q8 PO Last administered on 10/14/18 05:30; Admin Dose 500 MG; Start 10/12/18 at 22:00 Diazepam (Valium) 5 mg Q6 PO Last administered on 10/14/18at 05:30; Admin Dose 5 MG; Start 10/13/18 at 18:00 ELIEL LOVELACE October 14, 2018 13:05
[2018-10-14] MEDS ORDERED: SOD CHLORIDE 0.9% 500 ML IV ONE (20:30)
[2018-10-14] MEDS ORDERED: CYCLOBENZAPRINE 10 MG TAB PO ONE (20:30)
[2018-10-14] MEDS: ACETAMINOPHEN 325 MG TAB PO PRN (22:55)
[2018-10-15 00:40] VITALS: BP 110/52; PULSE 46; RESP 18
[2018-10-15] MEDS: metroNIDAZOLE 500 MG TAB PO SCH ×3 (05:56→21:53)
[2018-10-15] MEDS: DIAZEPAM 5 MG TAB PO SCH ×3 (05:57→17:58)
--- NOTE | 2018-10-15 07:51 | PN ---
Date/Time of Note Date/Time of Note DATE: 10/15/18 TIME: 07:51 Assessment/Plan VTE Prophylaxis Risk score (from Ns)>0 risk: 2 SCD applied (from Nsg): Yes Pharmacological prophylaxis: LMWH Lines/Catheters IV Catheter Type (from [facility]): Saline Lock Urinary Cath still in place: No Assessment/Plan Hospital Course SUBJECTIVE: Complains of some spasms in the left lower extremity and left upper extremity. Left eye diplopia resolved. Lock jaw better. OBJECTIVE: Physical Exam General: Adequately build 53 year-old male lying in bed in no apparent distress. HEENT: Normocephalic, atraumatic. Eyes: Anicteric sclerae, conjunctivae clear. ENT: Nasal septum midline, oral mucosa moist. Neck supple, no JVD noticed. Respiratory: Bilaterally clear breath sounds. No use of accessory muscles of respiration. No adventitious breath sounds. Cardiovascular: S1, S2 heard. Regular rate and rhythm. Abdomen: Soft, nontender, and nondistended. Bowel sounds positive in all 4 qu adrants. Genitourinary: Deferred. Extremities: No cyanosis, no clubbing, no edema. Peripheral pulses palpable. Neurologic: Cranial nerves II through XII grossly intact. The patient is awake, alert, and oriented. Skin: Normal skin turgor. No skin rashes. Labs & Vitals per chart ASSESSMENT & PLAN 53-year-old female with no significant comorbidities other than remote history of migraine headache who presented to the emergency department with chief complaint of generalized muscle spasms including trismus, who recently had a puncture wound from reported nail and was not adequately immunized for tetanus. 1. Presumed tetanus. -Status post evaluation by podiatry for reported puncture wound of the left foot and no obvious wound. -Continue Flagyl. -Status post tetanus immunoglobulin. -Continue [id number] muscle relaxants. -Continue magnesium sulfate. -Being followed by neurology and pulmonology. -Status post lumbar puncture on 10/08/2018. Cultures negative to date. 2. Cephalgia. -Reported different headache when compared to her migraine episodes. -Brain MRI showing 1 to 2 mm focus of T2 hyper signal intensity involve the subcortical region of left temporal occipital region. -Being followed by neurology. 3. Fluids, electrolytes, and nutrition. -Mechanical soft diet. 4. DVT prophylaxis -Subcutaneous Lovenox. 5. Plan. -Continue current management. -Taper down Valium. -Continue physical therapy. -Await clinical improvement. The patient was seen in collaboration with Dr. Murillo. Result Diagram: 10/13/18 0434 10/13/18433 Exam/Review of Systems Exam Vitals Vital Signs Date Temp Pulse Resp B/P (MAP) Pulse Ox O2 O2 Flow FiO2 Time Delivery Rate 10/15/18 97.7 46 18 110/52 97 Room Air 00:40 (71) Intake and Output 10/14/18 10/14/18 10/15/18 1515:00 23:00 07:00 IntakeIntake Total 50 ml 1600 ml 150 ml BalanceBalance 50 ml 1600 ml 150 ml Medications Medication Current Medications Ondansetron HCl (Zofran Inj) 4 mg Q6H PRN IV NAUSEA AND/OR VOMITING Last administered on 10/11/18at 21:16; Admin Dose 4 MG; Start 10/03/18 at 22:00 Albuterol/ Ipratropium (Duoneb) 3 ml Q2H RESP THERAPY PRN NEB SHORTNESS OF BREATH; Start 10/03/18 at 22:00 Acetaminophen (Tylenol Supp) 650 mg Q4H PRN [place] PAIN LEVEL 1-3 OR FEVER; Start 10/03/18 at 22:00 Morphine Sulfate (morphine) 3 mg Q4H PRN IV SEVERE PAIN LEVEL 7-10 Last administered on 10/11/18 05:56; Admin Dose 3 MG; Start 10/03/18 at 23:00 Cyclobenzaprine HCl (Flexeril) 10 mg TID PRN PO MUSCLE SPASMS Last administered on 10/14/18at 09:44; Admin Dose 10 MG; Start 10/03/18 at 23:30 Enoxaparin Sodium (Lovenox) 40 mg DAILY SC Last administered on 10/14/18 09:48 ; Admin Dose 40 MG; Start 10/06/18 at 09:00 Diazepam (Valium) 4 mg Q4H PRN IV muscle spasm Last administered on 10/08/18 15:56; Admin Dose 4 MG; Start 10/04/18 at 23:00 Magnesium Sulfate 50 ml @ 25 mls/hr TID IVPB Last administered on 10/14/18at 23:53; Admin Dose 25 MLS/HR; Start 10/05/18 at 21:00 Famotidine (Pepcid) 20 mg DAILY PO Last administered on 10/14/18 09:45; Admin Dose 20 MG; Start 10/08/18 at 09:00 Polyethylene Glycol (Miralax) 17 gm BID PO Last administered on 10/11/18 09:00; Admin Dose 17 GM; Start 10/09/18 at 10:00 Docusate Sodium (Colace) 100 mg BID PO Last administered on 10/14/18 09:44; Admin Dose 100 MG; Start 10/09/18 at 21:00 Bisacodyl (Dulcolax) 10 mg DAILY PRN PO CONSTIPATION; Start 10/09/18 at 10:00 Acetaminophen (Tylenol Tab) 650 mg Q4H PRN PO MILD PAIN(1-3)OR ELEVATED TEMP Last administered on 10/14/18 22:55; Admin Dose 650 MG; Start 10/09/18 at 11:30 Ibuprofen (Motrin) 400 mg Q4 PRN PO MILD PAIN(1-3) OR TEMP>38C Last administered on 10/14/18 09:50; Admin Dose 400 MG; Start 10/11/18 at 17:30 Metronidazole (Flagyl) 500 mg Q8 PO Last administered on 10/15/18 05:56; Admin Dose 500 MG; Start 10/12/18 at 22:00 Diazepam (Valium) 5 mg Q6 PO Last administered on 10/15/18 05:57; Admin Dose 5 MG; Start 10/13/18 at 18:00 WILLIAM ANDRE NP October 15, 2018 07:51
[2018-10-15] MEDS: POLYETHYLENE GLYCOL 17 GM PACKET PO SCH ×2 (08:47→21:00)
[2018-10-15] MEDS: DOCUSATE SODIUM 100 MG CAP PO SCH ×2 (08:47→21:00)
[2018-10-15] MEDS: FAMOTIDINE 20 MG TAB PO SCH (08:53)
[2018-10-15] MEDS: MAGNESIUM SULFATE 2 GM/50 ML 50 ML IVPB SCH ×3 (08:53→20:17)
[2018-10-15] MEDS: IBUPROFEN 400 MG TAB PO PRN (08:53)
[2018-10-15] MEDS: ENOXAPARIN 40 MG/0.4 ML SYG SC SCH (08:54)
[2018-10-15 08:59] VITALS: BP 108/54; PULSE 52; RESP 18
[2018-10-15] MEDS ORDERED: DIAZEPAM 5 MG TAB PO SCH (10:00)
--- NOTE | 2018-10-15 12:52 | CONS ---
Consultation Date/Type/Reason Admit Date/Time October 03, 2018 at 20:47 Initial Consult Date Type of Consult SUBJECTIVE: Pt is awake,alert, gradually improving. NO acute events over night. VS: stable T: 97.9 LABS: Reviewed. MICROBIOLOGY: All cultures negative Antimicrobials: Flagyl Physical examination: GEN: Well-nourished well-developed middle-aged woman, who is alert in no distress. HENT: Head atraumatic normocephalic sclera nonicteric. Neck is supple, trachea midline, no nuchal rigidity. PULM: Chest rise symmetrical breath sounds clear bilaterally. Heart: S1-S2. Abdomen soft bowel sounds present. Extremities without cyanosis edema. Neurological: Bilateral upper and lower extremities with equal strength, no focal neurologic deficits. Assessment: 1. Presumed tetanus infection, status post tetanus antitoxin. 2. Ongoing weakness with lower extremities tingling 3. Trismus Plan: Pt is gradually improving. Continue Flagyl for 2 more days. PT and neurology rec-s. Requesting Provider: LONNY PFEIFFER MD Date/Time of Note DATE: 10/15/18 TIME: 12:51 Exam/Review of Systems Exam Vitals Vital Signs Date Temp Pulse Resp B/P (MAP) Pulse Ox O2 O2 Flow FiO2 Time Delivery Rate 10/15/18 97.9 52 18 108/54 97 Room Air 08:59 (72) Intake and Output 10/14/18 10/14/18 10/15/18 1515:00 23:00 07:00 IntakeIntake Total 50 ml 1600 ml 150 ml BalanceBalance 50 ml 1600 ml 150 ml Results Result Diagram: 10/13/18 0434 10/13/18 0434 Medications Medication Current Medications Ondansetron HCl (Zofran Inj) 4 mg Q6H PRN IV NAUSEA AND/OR VOMITING Last administered on 10/11/18at 21:16; Admin Dose 4 MG; Start 10/03/18 at 22:00 Albuterol/ Ipratropium (Duoneb) 3 ml Q2H RESP THERAPY PRN NEB SHORTNESS OF BREATH; Start 10/03/18 at 22:00 Acetaminophen (Tylenol Supp) 650 mg Q4H PRN [place] PAIN LEVEL 1-3 OR FEVER; Start 10/03/18 at 22:00 Morphine Sulfate (morphine) 3 mg Q4H PRN IV SEVERE PAIN LEVEL 7-10 Last administered on 10/11/18 05:56; Admin Dose 3 MG; Start 10/03/18 at 23:00 Cyclobenzaprine HCl (Flexeril) 10 mg TID PRN PO MUSCLE SPASMS Last administered on 10/14/18 09:44; Admin Dose 10 MG; Start 10/03/18 at 23:30 Enoxaparin Sodium (Lovenox) 40 mg DAILY SC Last administered on 10/15/18 08:54; Admin Dose 40 MG; Start 10/06/18 at 09:00 Diazepam (Valium) 4 mg Q4H PRN IV muscle spasm Last administered on 10/08/18 15:56; Admin Dose 4 MG; Start 10/04/18 at 23:00 Magnesium Sulfate 50 ml @ 25 mls/hr TID IVPB Last administered on 10/15/18 12:18; Admin Dose 25 MLS/HR; Start 10/05/18 at 21:00 Famotidine (Pepcid) 20 mg DAILY PO Last administered on 10/15/18 08:53; Admin Dose 20 MG; Start 10/08/18 at 09:00 Polyethylene Glycol (Miralax) 17 gm BID PO Last administered on 10/11/18 09:00; Admin Dose 17 GM; Start 10/09/18 at 10:00 Docusate Sodium (Colace) 100 mg BID PO Last administered on 10/14/18 09:44; Admin Dose 100 MG; Start 10/09/18 at 21:00 Bisacodyl (Dulcolax) 10 mg DAILY PRN PO CONSTIPATION; Start 10/09/18 at 10:00 Acetaminophen (Tylenol Tab) 650 mg Q4H PRN PO MILD PAIN(1-3)OR ELEVATED TEMP Last administered on 10/14/18 22:55; Admin Dose 650 MG; Start 10/09/18 at 11:30 Ibuprofen (Motrin) 400 mg Q4 PRN PO MILD PAIN(1-3) OR TEMP>38C Last administered on 10/15/18 08:53; Admin Dose 400 MG; Start 10/11/18 at 17:30 Metronidazole (Flagyl) 500 mg Q8 PO Last administered on 10/15/18 05:56; Admin Dose 500 MG; Start 10/12/18 at 22:00 Diazepam (Valium) 2.5 mg Q6 PO Last administered on 10/15/18at 12:18; Admin Dose 2.5 MG; Start 10/15/18 at 12:00 ELIEL LOVELACE October 15, 2018 12:52
[2018-10-15 15:02] VITALS: BP 98/48; RESP 18
[2018-10-15 20:31] VITALS: BP 93/54; PULSE 62; RESP 18
[2018-10-16] MEDS: DIAZEPAM 5 MG TAB PO SCH ×5 (00:15→23:41)
[2018-10-16 01:56] VITALS: BP 99/54; PULSE 55; RESP 18
[2018-10-16] MEDS: morphine 4 MG/ML VIAL IV PRN ×2 (04:20→15:04)
[2018-10-16] MEDS: metroNIDAZOLE 500 MG TAB PO SCH ×3 (05:59→20:26)
[2018-10-16 07:46] VITALS: BP 101/58; PULSE 68; RESP 19
[2018-10-16] MEDS: MAGNESIUM SULFATE 2 GM/50 ML 50 ML IVPB SCH ×3 (08:52→20:25)
[2018-10-16] MEDS: ENOXAPARIN 40 MG/0.4 ML SYG SC SCH (08:52)
[2018-10-16] MEDS: DOCUSATE SODIUM 100 MG CAP PO SCH ×2 (08:53→20:25)
[2018-10-16] MEDS: POLYETHYLENE GLYCOL 17 GM PACKET PO SCH ×2 (08:53→20:25)
[2018-10-16] MEDS: FAMOTIDINE 20 MG TAB PO SCH (08:53)
[2018-10-16] MEDS ORDERED: KETOROLAC 30 MG INJ IV PRN (11:00)
[2018-10-16] MEDS: GABAPENTIN 100 MG CAP PO SCH ×2 (13:21→20:25)
--- NOTE | 2018-10-16 14:25 | CONS ---
Assessment/Plan Assessment/Plan Hospital Course (Demo Recall) Sleeping, no acute events per report All cultures negative Antimicrobials: Flagyl Physical examination: Well-nourished well-developed middle-aged woman who is alert in no distress. Head atraumatic normocephalic sclera nonicteric. Neck is supple, trachea midline, no nuchal rigidity. Chest rise symmetrical breath sounds clear bilaterally. Heart: S1-S2. Abdomen soft bowel sounds present. Extremities without cyanosis edema. Neurological: Bilateral upper and lower extremities with equal strength, no focal neurologic deficits. Assessment: 1. Presumed tetanus infection, status post tetanus antitoxin. 2. Ongoing weakness with lower extremities tingling 3. Trismus Plan: Stable, will give last dose of Flagyl tomorrow, continue PT f/u neurology rec-s Consultation Date/Type/Reason Admit Date/Time October 03, 2018 at 20:47 Initial Consult Date Type of Consult id Requesting Provider: LONNY PFEIFFER MD Date/Time of Note DATE: 10/16/18 TIME: 14:24 Exam/Review of Systems Exam Vitals Vital Signs Date Temp Pulse Resp B/P (MAP) Pulse Ox O2 O2 Flow FiO2 Time Delivery Rate 10/16/18 98.2 68 19 101/58 98 07:46 (72) 10/16/18 Room Air 01:56 Intake and Output 10/15/18 10/15/18 10/16/18 1515:00 23:00 07:00 IntakeIntake Total 890 ml 530 ml 400 ml BalanceBalance 890 ml 530 ml 400 ml Results Result Diagram: 10/13/18 0434 10/13/18 0434 Medications Medication Current Medications Ondansetron HCl (Zofran Inj) 4 mg Q6H PRN IV NAUSEA AND/OR VOMITING Last administered on 10/11/18at 21:16; Admin Dose 4 MG; Start 10/03/18 at 22:00 Albuterol/ Ipratropium (Duoneb) 3 ml Q2H RESP THERAPY PRN NEB SHORTNESS OF BREATH; Start 10/03/18 at 22:00 Acetaminophen (Tylenol Supp) 650 mg Q4H PRN [place] PAIN LEVEL 1-3 OR FEVER; Start 10/03/18 at 22:00 Morphine Sulfate (morphine) 3 mg Q4H PRN IV SEVERE PAIN LEVEL 7-10 Last administered on 10/16/18 04:20; Admin Dose 3 MG; Start 10/03/18 at 23:00 Cyclobenzaprine HCl (Flexeril) 10 mg TID PRN PO MUSCLE SPASMS Last administered on 10/14/18 09:44; Admin Dose 10 MG; Start 10/03/18 at 23:30 Enoxaparin Sodium (Lovenox) 40 mg DAILY SC Last administered on 10/16/18 08:52; Admin Dose 40 MG; Start 10/06/18 at 09:00 Diazepam (Valium) 4 mg Q4H PRN IV muscle spasm Last administered on 10/08/18 15:56; Admin Dose 4 MG; Start 10/04/18 at 23:00 Magnesium Sulfate 50 ml @ 25 mls/hr TID IVPB Last administered on 10/16/18 13:22; Admin Dose 25 MLS/HR; Start 10/05/18 at 21:00 Famotidine (Pepcid) 20 mg DAILY PO Last administered on 10/16/18 08:53; Admin Dose 20 MG; Start 10/08/18 at 09:00 Polyethylene Glycol (Miralax) 17 gm BID PO Last administered on 10/11/18 09:00; Admin Dose 17 GM; Start 10/09/18 at 10:00 Docusate Sodium (Colace) 100 mg BID PO Last administered on 10/16/18 08:53; Admin Dose 100 MG; Start 10/09/18 at 21:00 Bisacodyl (Dulcolax) 10 mg DAILY PRN PO CONSTIPATION; Start 10/09/18 at 10:00 Acetaminophen (Tylenol Tab) 650 mg Q4H PRN PO MILD PAIN(1-3)OR ELEVATED TEMP Last administered on 10/14/18 22:55; Admin Dose 650 MG; Start 10/09/18 at 11:30 Ibuprofen (Motrin) 400 mg Q4 PRN PO MILD PAIN(1-3) OR TEMP>38C Last administer ed on 10/15/18 08:53; Admin Dose 400 MG; Start 10/11/18 at 17:30 Metronidazole (Flagyl) 500 mg Q8 PO Last administered on 10/16/18 13:21; Admin Dose 500 MG; Start 10/12/18 at 22:00 Diazepam (Valium) 2.5 mg Q6 PO Last administered on 10/16/18 11:26; Admin Dose 2.5 MG; Start 10/15/18 at 12:00 Ketorolac Tromethamine (Toradol) 30 mg Q6H PRN IV PAIN LEVEL 1-3 Last administered on 10/16/18 11:26; Admin Dose 30 MG; Start 10/16/18 at 11:00; Stop 10/19/18 at 10:59 Gabapentin (Neurontin) 100 mg TID PO Last administered on 10/16/18 13:21; Admin Dose 100 MG; Start 10/16/18 at 13:00 ANA VEGA NP October 16, 2018 14:25
--- NOTE | 2018-10-16 17:25 | PN ---
Date/Time of Note Date/Time of Note DATE: 10/16/18 TIME: 17:24 Assessment/Plan VTE Prophylaxis Risk score (from Nsg)>0 risk: 2 SCD applied (from Nsg): Yes SCD contraindicated: low risk/ambulating Pharmacological prophylaxis: LMWH Lines/Catheters IV Catheter Type (from Nrsg): Saline Lock Urinary Cath still in place: No Assessment/Plan Hospital Course Hospitalist Coverage/ Hospital Course Stepped on a leela nail ~10 days ago while she and her boyfriend were evaluating/ cleaning a new property. She was in the garden wearing socks when she felt a independent living advisor her foot. She removed the nail which she feels was from the treating engineer helper. She cleaned it with some 'colloid silver.' Took some Tumeric. No recent tetanus booster. She was good for a few days then noticed bilateral lower ext spasms and then a headache which was severe and different than her normal migraines. Her usual migraines are unilateral. She also went to her usual chiropractor. No photosensitivity, or n/v. After her injury she stopped exercising and is gained a little weight. States her hair is falling out a little. ER/ night staff spoke w poison control: Received 500 Units Tetanus ImmunoGlobin IM once (per CDC recommendation due to injection pain concerns). Needs full vaccination, may use mag sulfate, benzos. +/- anesthesia. No local wound appreciated. On flagyl. As symptoms continued we elected to give her a larger dose of tetanus immunoglobulin. Patient and daughter were updated each day. -10/06: she states she has some blurry double vision. Tolerating diet ambulating somewhat. Linda metz. She spoke with her family friend physician in [place] who gave her a differential of hypothyroidism and multiple sclerosis. This morning I spent half an hour speaking the patient regarding her presentation, comorbidities and her present situationprognosis options. May need critical care assistance, would like to transfer to [facility]. Amy May would like to take her; bed/ status tbd. A/P 1. Trismus/ Tetanus; mod stable, sp Icu care/ ekgs mag sulfate, st care; +/- LP to look for toxins?/ other etio. -stable, discharge home with therapy follow-ups muscle relaxants may be acute rehab 3. Ho Migraines; CT/ MRI Brain 4. Ho nephrolithiasis 5. Ho gastritis 6. History of chiropractic manipulation 7. Diplopia? sp CT/ MRI. LP ordered S; 10/04 jaw about the same. 10/05: A little better 10/06 stable possibly a little better. I spent half an hour discussing the status prognosis treatment options. 10/07: events noted 10/08: refused, now agrees to lp. dysuria? blurry vision w turning. i asked her to consider tertiary opinion. 10/16: Eating participating with PT. No dyspnea fever headaches. Muscle spasms left greater than right. O: vss PE no pallor/ droop reg no mrg ctab bs+ nt nd no r r g no edema reflexes -symmetrical Result Diagram: 10/13/18 0434 10/13/18433 Exam/Review of Systems Exam Vitals Vital Signs Date Temp Pulse Resp B/P (MAP) Pulse Ox O2 O2 Flow FiO2 Time Delivery Rate 10/16/18 98.2 68 19 101/58 98 07:46 (72) 10/16/18 Room Air 01:56 Intake and Output 10/15/18 10/15/18 10/16/18 1515:00 23:00 07:00 IntakeIntake Total 890 ml 530 ml 400 ml BalanceBalance 890 ml 530 ml 400 ml Medications Medication Current Medications Ondansetron HCl (Zofran Inj) 4 mg Q6H PRN IV NAUSEA AND/OR VOMITING Last administered on 10/11/18at 21:16; Admin Dose 4 MG; Start 10/03/18 at 22:00 Albuterol/ Ipratropium (Duoneb) 3 ml Q2H RESP THERAPY PRN NEB SHORTNESS OF BREATH; Start 10/03/18 at 22:00 Acetaminophen (Tylenol Supp) 650 mg Q4H PRN [place] PAIN LEVEL 1-3 OR FEVER; Start 10/03/18 at 22:00 Morphine Sulfate (morphine) 3 mg Q4H PRN IV SEVERE PAIN LEVEL 7-10 Last administered on 10/16/18at 15:04; Admin Dose 3 MG; Start 10/03/18 at 23:00 Cyclobenzaprine HCl (Flexeril) 10 mg TID PRN PO MUSCLE SPASMS Last administered on 10/14/18at 09:44; Admin Dose 10 MG; Start 10/03/18 at 23:30 Enoxaparin Sodium (Lovenox) 40 mg DAILY SC Last administered on 10/16/18 0 8:52; Admin Dose 40 MG; Start 10/06/18 at 09:00 Diazepam (Valium) 4 mg Q4H PRN IV muscle spasm Last administered on 10/08/18 15:56; Admin Dose 4 MG; Start 10/04/18 at 23:00 Magnesium Sulfate 50 ml @ 25 mls/hr TID IVPB Last administered on 10/16/18 13:22; Admin Dose 25 MLS/HR; Start 10/05/18 at 21:00 Famotidine (Pepcid) 20 mg DAILY PO Last administered on 10/16/18 08:53; Admin Dose 20 MG; Start 10/08/18 at 09:00 Polyethylene Glycol (Miralax) 17 gm BID PO Last administered on 10/11/18 09:00; Admin Dose 17 GM; Start 10/09/18 at 10:00 Docusate Sodium (Colace) 100 mg BID PO Last administered on 10/16/18 08:53; Admin Dose 100 MG; Start 10/09/18 at 21:00 Bisacodyl (Dulcolax) 10 mg DAILY PRN PO CONSTIPATION; Start 10/09/18 at 10:00 Acetaminophen (Tylenol Tab) 650 mg Q4H PRN PO MILD PAIN(1-3)OR ELEVATED TEMP Last administered on 10/14/18 22:55; Admin Dose 650 MG; Start 10/09/18 at 11:30 Ibuprofen (Motrin) 400 mg Q4 PRN PO MILD PAIN(1-3) OR TEMP>38C Last administered on 10/15/18 08:53; Admin Dose 400 MG; Start 10/11/18 at 17:30 Metronidazole (Flagyl) 500 mg Q8 PO Last administered on 10/16/18 13:21; Admin Dose 500 MG; Start 10/12/18 at 22:00 Diazepam (Valium) 2.5 mg Q6 PO Last administered on 10/16/18 11:26; Admin Dose 2.5 MG; Start 10/15/18 at 12:00 Ketorolac Tromethamine (Toradol) 30 mg Q6H PRN IV PAIN LEVEL 1-3 Last administered on 10/16/18 11:26; Admin Dose 30 MG; Start 10/16/18 at 11:00; Stop 10/19/18 at 10:59 Gabapentin (Neurontin) 100 mg TID PO Last administered on 10/16/18at 13:21; Admin Dose 100 MG; Start 10/16/18 at 13:00 LONNY PFEIFFER MD October 16, 2018 17:25
[2018-10-16 20:15] VITALS: BP 95/45; RESP 18
[2018-10-17] MEDS ORDERED: SOD CHLORIDE 0.9% 250 ML IV ONE (03:30)
[2018-10-17] MEDS: DIAZEPAM 5 MG TAB PO SCH ×2 (06:00→12:00)
[2018-10-17] MEDS: metroNIDAZOLE 500 MG TAB PO SCH ×2 (06:05→13:28)
[2018-10-17 08:30] VITALS: BP 100/56; PULSE 67; RESP 18
[2018-10-17] MEDS: POLYETHYLENE GLYCOL 17 GM PACKET PO SCH (09:00)
[2018-10-17] MEDS: FAMOTIDINE 20 MG TAB PO SCH (09:43)
[2018-10-17] MEDS: MAGNESIUM SULFATE 2 GM/50 ML 50 ML IVPB SCH ×2 (09:43→13:28)
[2018-10-17] MEDS: DOCUSATE SODIUM 100 MG CAP PO SCH (09:43)
[2018-10-17] MEDS: GABAPENTIN 100 MG CAP PO SCH ×2 (09:43→13:28)
[2018-10-17] MEDS: ENOXAPARIN 40 MG/0.4 ML SYG SC SCH (09:50)
--- NOTE | 2018-10-17 13:16 | CONS ---
Assessment/Plan Assessment/Plan Hospital Course (Demo Recall) no acute events per report All cultures negative Antimicrobials: Flagyl Physical examination: Well-nourished well-developed middle-aged woman who is alert in no distress. Head atraumatic normocephalic sclera nonicteric. Neck is supple, trachea midline, no nuchal rigidity. Chest rise symmetrical breath sounds clear bilaterally. Heart: S1-S2. Abdomen soft bowel sounds prese nt. Extremities without cyanosis edema. Neurological: Bilateral upper and lower extremities with equal strength, no focal neurologic deficits. Assessment: 1. Presumed tetanus infection, status post tetanus antitoxin. 2. Ongoing weakness with lower extremities tingling 3. Trismus Plan: Stable, last dose of Flagyl today, continue PT f/u neurology rec-s Consultation Date/Type/Reason Admit Date/Time October 03, 2018 at 20:47 Initial Consult Date Type of Consult id Requesting Provider: LONNY PFEIFFER MD Date/Time of Note DATE: 10/17/18 TIME: 13:15 Exam/Review of Systems Exam Vitals Vital Signs Date Temp Pulse Resp B/P (MAP) Pulse Ox O2 O2 Flow FiO2 Time Delivery Rate 10/17/18 96 21 01:50 10/16/18 98.2 18 95/45 (62) 20:15 10/16/18 68 07:46 10/16/18 Room Air 01:56 Intake and Output 10/16/18 10/16/18 10/17/18 1515:00 23:00 07:00 IntakeIntake Total 50 ml 430 ml 490 ml BalanceBalance 50 ml 430 ml 490 ml Results Result Diagram: 10/13/18 0434 10/13/18 0434 Medications Medication Current Medications Ondansetron HCl (Zofran Inj) 4 mg Q6H PRN IV NAUSEA AND/OR VOMITING Last administered on 10/11/18at 21:16; Admin Dose 4 MG; Start 10/03/18 at 22:00 Albuterol/ Ipratropium (Duoneb) 3 ml Q2H RESP THERAPY PRN NEB SHORTNESS OF BREATH; Start 10/03/18 at 22:00 Acetaminophen (Tylenol Supp) 650 mg Q4H PRN [place] PAIN LEVEL 1-3 OR FEVER; Start 10/03/18 at 22:00 Morphine Sulfate (morphine) 3 mg Q4H PRN IV SEVERE PAIN LEVEL 7-10 Last administered on 10/16/18 15:04; Admin Dose 3 MG; Start 10/03/18 at 23:00 Cyclobenzaprine HCl (Flexeril) 10 mg TID PRN PO MUSCLE SPASMS Last administered on 10/14/18 09:44; Admin Dose 10 MG; Start 10/03/18 at 23:30 Enoxaparin Sodium (Lovenox) 40 mg DAILY SC Last administered on 10/17/18 09:50; Admin Dose 40 MG; Start 10/06/18 at 09:00 Diazepam (Valium) 4 mg Q4H PRN IV muscle spasm Last administered on 10/08/18 15:56; Admin Dose 4 MG; Start 10/04/18 at 23:00 Magnesium Sulfate 50 ml @ 25 mls/hr TID IVPB Last administered on 10/17/18 09:43; Admin Dose 25 MLS/HR; Start 10/05/18 at 21:00 Famotidine (Pepcid) 20 mg DAILY PO Last administered on 10/17/18 09:43; Admin Dose 20 MG; Start 10/08/18 at 09:00 Polyethylene Glycol (Miralax) 17 gm BID PO Last administered on 10/16/18 20:25; Admin Dose 17 GM; Start 10/09/18 at 10:00 Docusate Sodium (Colace) 100 mg BID PO Last administered on 10/17/18 09:43; Admin Dose 100 MG; Start 10/09/18 at 21:00 Bisacodyl (Dulcolax) 10 mg DAILY PRN PO CONSTIPATION; Start 10/09/18 at 10:00 Acetaminophen (Tylenol Tab) 650 mg Q4H PRN PO MILD PAIN(1-3)OR ELEVATED TEMP Last administered on 10/14/18 22:55; Admin Dose 650 MG; Start 10/09/18 at 11:30 Ibuprofen (Motrin) 400 mg Q4 PRN PO MILD PAIN(1-3) OR TEMP>38C Last administered on 10/15/18 08:53; Admin Dose 400 MG; Start 10/11/18 at 17:30 Metronidazole (Flagyl) 500 mg Q8 PO Last administered on 10/17/18 06:05; Admin Dose 500 MG; Start 10/12/18 at 22:00; Stop 10/17/18 at 23:30 Diazepam (Valium) 2.5 mg Q6 PO Last administered on 10/16/18at 23:41; Admin Dose 2.5 MG; Start 10/15/18 at 12:00 Ketorolac Tromethamine (Toradol) 30 mg Q6H PRN [place] PAIN LEVEL 1-3 Last administered on 10/16/18at 11:26; Admin Dose 30 MG; Start 10/16/18 at 11:00; Stop 10/19/18 at 10:59 Gabapentin (Neurontin) 100 mg TID PO Last administered on 10/17/18at 09:43; Admin Dose 100 MG; Start 10/16/18 at 13:00 ANA VEGA NP October 17, 2018 13:16
--- NOTE | 2018-10-17 14:21 | DS ---
Date/Time of Note Date/Time of Note DATE: 10/17/18 TIME: 14:08 Discharge Summary Admission/Discharge Info Admit Date/Time October 03, 2018 at 20:47 Discharge Date/Time Patient Condition: Stable Consults Harley Barajas Procedures CT Brain IMPRESSION: 1. Normal non-contrast CT examination of the brain for the age without intracranial hemorrhage, cerebral infarction, or hydrocephalus. MRI Brain IMPRESSION: 1. No intracranial mass, hemorrhage, cerebral infarction, hydrocephalus, or abnormal contrast enhancement of the labyrinthine structures. 2. A single 1-2 mm focus of T2 hyper-signal intensity involving the subcortical region of left temporo-occipital region is a nonspecific finding with multiple differential diagnosis including idiopathic, migraine headaches, age related microvascular change, and, unlikely, demyelination or vasculitis. Foot XR IMPRESSION: 1. No radiographic evidence of acute osseous abnormality. 2. Bipartite medial hallux sesamoid with mild adjacent soft tissue swelling. FOOT MRI IMPRESSION: 1. No evidence of osteomyelitis. 2. No soft tissue fluid collection identified. 3. Mild focal effacement of the fat in the second intermetatarsal webspace. If there is clinical concern for Leblanc's neuroma, contrast-enhanced follow-up MRI may be obtained for further evaluation. 4. Fragmented medial hallux sesamoid without edema or significant sclerosis. MRI Ankle IMPRESSION: No acute marrow signal changes in the osseous structures of the left ankle joint. Cystic changes along the posterolateral aspect of the talus, just inferior to the talar dome measuring 11 x 6 x 10 mm, possibly secondary to chondral changes of the posterior talocalcaneal joint or traction along the posterior talofibular ligament. No evidence of fluid collection in the overlying soft tissues. Mild pressure lesion overlying the plantar calcaneus. Hx of Present Illness Sent in from Clinic for concern of lockjaw/ tetanus. Hospital Course Hospitalist Coverage/ Hospital Course Stepped on a leela nail ~10 days ago while she and her boyfriend were evaluating/ cleaning a new property. She was in the garden wearing socks when she felt a internal combustion engine subassembler her foot. She removed the nail which she feels was from the planer off bearer. She cleaned it with some 'colloid silver.' Took some Tumeric. No recent tetanus booster. She was good for a few days then noticed bilateral lower ext spasms and then a headache which was severe and different than her normal migraines. Her usual migraines are unilateral. She also went to her usual chiropractor. No photosensitivity, or n/v. After her injury she stopped exercising and is gained a little weight. States her hair is falling out a little. ER/ night staff spoke w poison control: Received 500 Units Tetanus ImmunoGlobin IM once (per CDC recommendation due to injection pain concerns). Needs full vaccination. Used mag sulfate, benzos. No local wound appreciated. Finished flagyl. As symptoms continued we elected to give her a larger dose of tetanus immunoglobulin. Patient and daughter were updated each day. -10/06: she states she has some blurry double vision. Tolerating diet ambulating somewhat. Linda stable. She spoke with her family friend physician in [place] who gave her a differential of hypothyroidism and multiple sclerosis. This morning I spent half an hour speaking the patient regarding her presentation, comorbidities and her present situationprognosis options. We considered critical care/ tertiary assistance/ second opinion. [facility] would like to take her. Transfer did not take place probably due to lack of beds. Patient herself declined to go to [facility] initially. MRI brain CAT scan brain did not show any acute process. A differential of multiple sclerosis hypothyroidism was considered. One could consider doing serial MRI brain with contrast over the next few months. ESR 0. Procalcitonin negative. TSH normal. CSF was a blood- tinged tap. Culture negative. HSV titers were nondiagnostic clinically at 16.0. Patient moved out of ICU; supportive care continued. Presently patient tolerating diet pain is controlled and she stable for for discharge. She will has issues of spasms lower extremity pains. I did advise her that we are continuing supportive care but that there is no guarantee that treatment will work. She may visit tertiary care for a second opinion down the line. Pressure low probably due to medication effects. Needs to finish tetanus vaccination series as outpatient A/P 1. Trismus/ Tetanus; mod stable, sp Icu care/ ekgs mag sulfate, st care; +/- LP to look for toxins?/ other etio. -stable, discharge home with therapy follow-ups muscle relaxants 3. Ho Migraines; CT/ MRI Brain 4. Ho nephrolithiasis 5. Ho gastritis 6. History of chiropractic manipulation 7. Diplopia? sp CT/ MRI/ LP S; 5/8 jaw about the same. 5/9: A little better 10/06 stable possibly a little better. I spent half an hour discussing the status prognosis treatment options. 10/07: events noted 10/08: refused, now agrees to lp. dysuria? blurry vision w turning. i asked her to consider tertiary opinion. 10/16: Eating participating with PT. No dyspnea fever headaches. Muscle spasms left greater than right. 10/17: Dizziness morning. Presently tolerating diet stable and fit for discharge. O: vss PE no pallor/ droop reg no mrg ctab bs+ nt nd no r r g no edema reflexes -symmetrical Home Meds Reported Medications Calcium Carb/Mag/Vitamin D3 (Coral Calcium 1,500 mg Cap) 1 Each Capsule, 1 EACH PO DAILY, CAP 10/03/18 Primary Care Provider Care Physician No Primary Time spent on discharge: > 30 minutes LONNY PFEIFFER MD October 17, 2018 14:21
--- NOTE | 2018-10-17 14:22 | PDOCDIS ---
Discharge Instructions CONDITION [id number] Patient Condition: [id number] Stable HOME CARE INSTRUCTIONS: [id number] Diet Instructions: [id number] Regular ACTIVITY: [id number] Activity Restrictions: [id number] Slowly Increase Activity Do not Drive FOLLOW UP/APPOINTMENTS Follow-up Plan appt primary & Dr Souza 1-2wks LONNY PFEIFFER MD October 17, 2018 14:22
[2018-10-17] MEDS ORDERED: GABA100C14 PO (14:25)
[2018-10-17] MEDS ORDERED: CYCL10TA7 PO (14:25)
[2018-10-17] MEDS ORDERED: DOCU-144 PO (14:25)
[2018-10-17] MEDS ORDERED: DIAZ5TAB4 PO (14:25)
[2018-10-17] MEDS ORDERED: ACET325T33 PO (14:25)
[2018-10-17] MEDS ORDERED: IBUP-1541 PO (14:25)
[2018-10-17] MEDS ORDERED: FAMO20TA18 PO (14:25)
== END 2018-10-17 15:50 | disposition home health service (06) | DRG 869 ==
LOC: E/R 17:16 → ICU 20:47 → CANRESERV 21:37 → 6WM 10-09 20:13 → MS1 10-11 16:38
PROVIDERS: ADMIT Internal Medicine; ATTEND Internal Medicine
PROC: 009U3ZX Drainage of Spinal Canal, Percutaneous Approach, Diagnostic (ICD-10-PCS; principal; 2018-10-08)
DX: A35 Other tetanus (principal); R31.29 Other microscopic hematuria; R30.0 Dysuria; R51 Headache; H53.2 Diplopia; R42 Dizziness and giddiness; R06.03 Acute respiratory distress; Z87.442 Personal history of urinary calculi
CPT/HCPCS: 36415; 70450; 70553; 71045; 73718; 73721; 80048; 80053; 81001; 81003; 82040; 82042; 82784; 82945; 83605; 83735; 84100; 84145; 84157; 84439; 84443; 84480; 84484; 84703; 85025; 85610; 85651; 85730; 86140; 86692; 87070; 87081; 87086; 89051; 90389; 90471; 90715; 92526; 92610; 93005; 93970; 94150; 96372; 96374; 96375; 97110; 97116; 97162; 97530; C9113; J1650; J1885; J2060; J2270; J2405; J3360; J3475; J7030; J7040; J7042